=== PATIENT | female | born 1935 | race Caucasian/White ===

== ENCOUNTER 2020-10-25 14:31 | Outpatient (CLI) | payer MEDICARE, BC, SELFPAY ==
[2020-10-25 15:05] VITALS: PULSE 85; O2SAT 92
[2020-10-25 15:06] VITALS: PULSE 84; O2SAT 87
[2020-10-25 15:08] VITALS: PULSE 84; O2SAT 88
[2020-10-25 15:09] VITALS: PULSE 85; O2SAT 90
--- NOTE | 2020-10-25 15:21 | HOMEO2EVAL ---
Evaluation was performed at [facility] Home Oxygen Evaluation RC: Home Oxygen (O2) Evaluation Start: 10/25/20 15:17 Freq: Status: Active Protocol: RPE Activity Type Activity Date Activity User E-Sign Co-Sign Detail Recorded Client Recorded Date Recorded By Document 10/25/20 15:05 KMV [id number] 10/25/20 15:19 KMV Document 10/25/20 15:06 KMV [id number] 10/25/20 15:21 KMV Document 10/25/20 15:08 KMV [email or web address] 10/25/20 15:21 KMV Document 10/25/20 15:09 KMV [email or web address] 10/25/20 15:21 KMV 10/25/20 10/25/20 10/25/20 15:05 15:06 15:08 Home O2 Evaluation Test Phase Resting Exercise Exercise Oxygen Delivery Room Air Room Air Nasal Cannula Oxygen Flow Rate (L/min) 1 Pulse Oximetry (90-100 %) 92 87 L 88 L Pulse Rate (60-100 beats/min) 85 84 84 Activity Tolerance Fair Fair Ambulation Distance (feet) Home Oxygen Evaluation Comments Treatment Charges O2 Evaluation - Outpatient 10/25/20 15:09 Home O2 Evaluation Test Phase Exercise Oxygen Delivery Nasal Cannula Oxygen Flow Rate (L/min) 1 Pulse Oximetry (90-100 %) 90 Pulse Rate (60-100 beats/min) 85 Activity Tolerance Fair Ambulation Distance (feet) 50 Home Oxygen Evaluation Comments PT. REQUIRES 2LPM OXYGEN WITH ACTIVITY. Treatment Charges
--- NOTE | 2020-10-25 15:22 | PCRCNOTE ---
PT. REFUSED PFT AND ABG. STATES SHE ONLY IS HERE TO QUALIFY FOR HOME OXYGEN. CALLED [employer] (DR. COLEMAN) AND OBTAINED A VERBAL ORDER FOR A HOME O2 EVALUATION.
== END 2020-10-25 14:32 | disposition home or self-care (01) ==
LOC: ANHPFT 14:34
PROVIDERS: PCP Internal Medicine; Visit Provider Internal Medicine
DX: J44.9 Chronic obstructive pulmonary disease, unspecified (principal)
CPT/HCPCS: 94618

== ENCOUNTER 2020-11-09 07:48 | Outpatient (CLI) | payer MEDICARE, BC, SELFPAY ==
[2020-11-09 08:32] LABS: Alveolar/Arterial O2 Gradient 31.9 mmHg; Base Excess ABG 1.7 mEq/l (+/-2.0); Carboxyhemoglobin 0.7 % THb (0-2.0); Fractional Inspired Oxygen 21 %; HCO3 ABG 27.1 mEq/l (22.0-26.0); Methemoglobin ABG 0.5 %THb (0-1.5); Oxygen Content ABG 22.7 %vol (16.0-22.0); Oxygen Saturation ABG 92.4 % (95.0-100.0); Oxyhemoglobin 91.9 % THb (90.0-100.0); PCO2 ABG 44.8 mmHg (35.0-45.0); PO2 ABG 64.2 mmHg (80.0-100.0); PO2 FiO2 Ratio Arterial Blood 3.06 %; Reduced Hemoglobin 6.9 %THb (0-5.0); Site Drawn RIGHT RADIAL; Total Hemoglobin 17.6 g/dL (12.0-18.0); pH ABG 7.399 (7.350-7.450)
[2020-11-09 08:33] LABS: Device ROOM AIR; Modified Allen's Test Pass
== END 2020-11-09 07:49 | disposition home or self-care (01) ==
LOC: ANHPFT 07:51
PROVIDERS: PCP Internal Medicine; Visit Provider Internal Medicine
DX: J44.9 Chronic obstructive pulmonary disease, unspecified (principal)
CPT/HCPCS: 36600; 82375; 82805; 83050

== ENCOUNTER 2022-03-10 16:14 | Inpatient (IN) | payer MEDICARE, BC, SELFPAY ==
[2022-03-10] VITALS (30 sets, daily range): BP systolic 110–191; BP diastolic 58–103; PULSE 82–151; RESP 17–37; TEMP 36.2–36.6; O2SAT 94–98; BMI 24.5
--- NOTE | ~2022-03-10 | XR_ITS ---
XR chest 1V portable DATE: 03/15/2022 08:24 INDICATION: Pneumonia, cough, weakness TECHNIQUE: Portable upright AP chest on 03/15/2022 0818 hours COMPARISON: 03/13/2022 CT pulmonary scan 03/13/2022 portable AP chest FINDINGS: Heart size appears normal. Is aortic calcification. There are patchy infiltrates in the mid and lower lung zones, right greater than left, consistent wit h bilateral pneumonia. Aortic arch calcification. No pleural effusion or pulmonary vascular congestion or pneumothorax. Osteopenia. IMPRESSION: Persistent patchy mid and lower lung infiltrates, right greater than left, relatively sta ble since 03/13/2022 Emphysema Aortic atherosclerosis Osteopenia Reviewed, dictated and finalized at location B. SFER IRON OPERATOR IMPRESSION: Persistent patchy mid and lower lung infiltrates, right greater joselito n left, relatively stable since 03/13/2022 Emphysema Aortic atherosclerosis Osteopenia
--- NOTE | ~2022-03-10 | CT_ITS ---
EXAMINATION: CTA chest PE protocol DATE: 03/13/2022 18:45 INDICATION: R/O PE TECHNIQUE: Computed tomography angiography (CTA) of the chest was performed with 100 mL Omnipaque-350 intravenous contrast timed to evaluate the pulmonary arteries. Coronal maximum intensity projection 3D-reconstructions were created by the technologist. The dose-length product (DLP) was 413.05 mGy-cm. Automated exposure control and iterative reconstruction technique were employed. COMPARISON: None. FINDINGS: Lung parenchyma and airways: Emphysematous change. Mid and lower peripheral reticular and tree-in-bud opacities. Subsegmental bibasilar consolidation. Calcified left lower lobe hamartoma. Pleura: Unremarkable. Thoracic inlet, axillae and chest wall: Mild ectasia and arch calcification. Thoracic aorta: Normal. Mediastinum: Dilated central pulmonary arteries as can be seen with pulmonary arterial hypertension. Heart and pericardium: Mild cardiomegaly. Mild aortic valve calcification Coronary artery calcifications: Mild. Upper abdomen: No significant finding. Bones: No acute osseous finding. Pulmonary arteries: Study quality: Adequate. No pulmonary emboli detected. IMPRESSION: No CT evidence of acute pulmonary embolus. Bibasilar atelectasis or consolidation, overlying chronic emphysematous, senescent, and interstitial changes, likely with a component of respiratory bronchioli tis. Reviewed, dictated and finalized at location K. ER PRINTED CIRCUIT BOARDS IMPRESSION: No CT evidence of acute pulmonary embolus. Bibasilar atelectasis or consolidati on, overlying chronic emphysematous, senescent, and interstitial changes, likel y with a component of respiratory bronchiolitis.
--- NOTE | ~2022-03-10 | XR_ITS ---
EXAMINATION: XR chest 1V portable DATE: 03/25/2022 06:46 INDICATION: COVID-19 pneumonia. TECHNIQUE: A single frontal view of the chest was obtained. COMPARISON: Chest single view 03/23/2022, chest CT 03/20/2022 FINDINGS: The lungs are hyperexpanded with lucencies, consistent with emphysema. There are airspace o pacities in the mid and lower lung zones, left worse than right. A calcified left lung nodule is cons istent with old granulomatous disease. A skin fold overlies left hemithorax. There is a small left pl eural effusion. No pneumothorax. Cardiomegaly is noted. IMPRESSION: 1. Stable airspace opacities in the mid and lower lung zones, consistent with pneumonia. 2. Stable small left pleural effusion. 3. Emphysema. 4. Cardiomegaly. Reviewed, dictated and finalized at location A. ATIENT DIETITIAN IMPRESSION: 1. Stable airspace opacities in the mid and lower lung zones, consistent with p neumonia. 2. Stable small left pleural effusion. 3. Emphysema. 4. Cardiomegaly.
--- NOTE | ~2022-03-10 | XR_ITS ---
EXAMINATION: XR chest 1V portable DATE: 03/13/2022 06:20 INDICATION: Shortness of breath TECHNIQUE: frontal view of the chest was obtained. COMPARISON: Chest radiograph dated 03/12/2022 FINDINGS: Persistent pulmonary vascular congestion with slight improvement in the increased interstitial patter n in the mid and lower lung zones consistent with improving mild pulmonary edema. Slight improvement in more patchy airspace opacities in the right lower lung zone which could represent atelectasis and/ or pneumonia. Calcified nodule at the left lung base consistent with old granulomatous disease. No pn eumothorax or pleural effusion. The cardiomediastinal silhouette is within normal limits for AP techn ique. Cholecystectomy clips in right upper quadrant. IMPRESSION: 1. Pulmonary vascular congestion with slight improvement in mild pulmonary edema. 2. Decrease in the patchy airspace opacities at the right lower lung zone which could represent impro ving atelectasis, pneumonia or more focal pulmonary edema. Reviewed, dictated and finalized at location A. RVOIR CARETAKER IMPRESSION: 1. Pulmonary vascular congestion with slight improvement in mild pulmonary alvaro a. 2. Decrease in the patchy airspace opacities at the right lower lung zone which could represent improving atelectasis, pneumonia or more focal pulmonary edema .
--- NOTE | ~2022-03-10 | XR_ITS ---
EXAMINATION: XR chest 1V portable Exam Date/Time: 03/10/2022 17:00 STAFF FORESTER HISTORY: SOB, WHEEZING. HX COPD Comparison: 08/22/2010. RESULT: Lines, tubes, and devices: None. Lungs and pleura: Cephalization, increased bronchovascular interstitial opacities and cuffing, perip heral reticular opacities. Mild bilateral angle blunting. Multiple calcified pulmonary nodules. Cardiomediastinal silhouette: Stable. Other: No acute osseous or upper abdominal finding. IMPRESSION: Pulmonary opacities may reflect moderate interstitial edema with small bilateral effusions. Infection /bronchiolitis not excluded. Reviewed, dictated and finalized at location K. F FORESTER IMPRESSION: Pulmonary opacities may reflect moderate interstitial edema with small bilatera l effusions. Infection/bronchiolitis not excluded.
--- NOTE | ~2022-03-10 | XR_ITS ---
EXAMINATION: XR chest 1V portable DATE: 03/27/2022 06:00 INDICATION: Pneumonia TECHNIQUE: frontal view of the chest was obtained. COMPARISON: Chest radiograph dated 03/25/[address] chest dated 03/20/2022 FINDINGS: Increased lucency in the bilateral upper lung zones consistent with emphysema better appreciated on p rior CT Mild opacities in the bilateral lower lung zones with interval improvement on the left. Small left pleural effusion. Calcified nodule at the medial left lung base consistent with old granulomato us disease. No pneumothorax. Cardiomediastinal silhouette is normal. IMPRESSION: 1. Emphysema with mild opacities at the bilateral lung bases, improved on the left, which could repre sent mild pulmonary edema, atelectasis, pneumonia or some combination thereof. 2. Small left pleural effusion. Reviewed, dictated and finalized at location A. FINDER FORMING DEPARTMENT IMPRESSION: 1. Emphysema with mild opacities at the bilateral lung bases, improved on the l eft, which could represent mild pulmonary edema, atelectasis, pneumonia or some combination thereof. 2. Small left pleural effusion.
--- NOTE | ~2022-03-10 | XR_ITS ---
EXAMINATION: XR chest 1V portable INDICATION: COVID pneumonia TECHNIQUE: Portable AP chest at 0639 hours COMPARISON: 03/18/2022, 03/20/2022 FINDINGS: There is a small left pleural effusion. There are worsening airspace opacities of the left lung base. Right basilar airspace opacities are stable. No pneumothorax is identified. The heart size is normal. Again noted is a nodule of the left lower lobe, suspicious for primary bronchogenic carci noma by CT. IMPRESSION: 1. Worsening airspace opacities of the left lung base and stable right basilar airspace opacities, co nsistent with atelectasis versus pneumonia. 2. Small left pleural effusion. Reviewed, dictated and finalized at location A. MACY TECHNICIAN PER DIEM IMPRESSION: 1. Worsening airspace opacities of the left lung base and stable right basilar airspace opacities, consistent with atelectasis versus pneumonia. 2. Small left pleural effusion.
--- NOTE | ~2022-03-10 | XR_ITS ---
EXAMINATION: XR chest 1V portable INDICATION: Shortness of breath TECHNIQUE: Portable AP chest at 0544 hours COMPARISON: 03/10/2022 FINDINGS: There are worsening airspace opacities of the right lung base. No pleural effusion or pneum othorax. The cardiomediastinal silhouette is normal. IMPRESSION: 1. Worsening right basilar airspace opacity, consistent with atelectasis versus pneumonia. Reviewed, dictated and finalized at location A. INTEGRATION DEVELOPER
--- NOTE | ~2022-03-10 | XR_ITS ---
EXAMINATION: XR chest 1V portable DATE: 03/18/2022 09:30 INDICATION: Shortness of breath. TECHNIQUE: A single frontal view of the chest was obtained. COMPARISON: Chest single view 03/15/2022, chest CT 03/13/2022 FINDINGS: There are lucencies in the lungs, consistent with emphysema. A calcified left lung nodule a nd calcified mediastinal lymph nodes are consistent with old granulomatous disease. There are airspac e opacities in right mid and lower lung zones and left lower lung zone. No pleural effusion or pneumo thorax. The heart size is normal. IMPRESSION: 1. Stable airspace opacities in right mid and lower lung zones and left lower lung zone, consistent w ith pneumonia. 2. Nodule in left lung lower lobe suspicious for primary bronchogenic carcinoma. Noncontrast low-dose chest CT is recommended in 3 months. I called this result to Dr. Angelo. 3. Emphysema. Reviewed, dictated and finalized at location A. NG DIRECTOR IMPRESSION: 1. Stable airspace opacities in right mid and lower lung zones and left lower l raman zone, consistent with pneumonia. 2. Nodule in left lung lower lobe suspicious for primary bronchogenic carcinoma . Noncontrast low-dose chest CT is recommended in 3 months. I called this resul t to Dr. Angelo. 3. Emphysema.
--- NOTE | ~2022-03-10 | CT_ITS ---
EXAMINATION:CT diagnostic chest wo con DATE: 03/20/2022 08:49 INDICATION: Pneumonia. TECHNIQUE: Computed tomography (CT) of the chest was performed without intravenous contrast. Automate d exposure control and iterative reconstruction technique were employed. The dose-length product (DLP ) was 176.40 mGy-cm. COMPARISON: Chest CT 03/13/2022 FINDINGS: There is severe emphysema. There is peripheral scarring in the upper lobes. There are patch y airspace opacities in the lower lobes and posterior segment right upper lobe, consistent with pneum onia. There is atelectasis and scarring in right middle lobe and lingula. There is mild bronchiectasi s in right middle lobe and lingula. A calcified left lung nodule is consistent with old granulomatous disease. There is a 14 mm nodule in left lower lobe. There are small pleural effusions. Cardiomegaly is noted. There are coronary artery calcifications. No pericardial effusion. There are changes of ch olecystectomy. There is a 2.3 cm cyst in right kidney. There is a 10 x 13 mm high right paratracheal lymph node. There is mild thoracic spondylosis and severe lumbar spondylosis. IMPRESSION: 1. Pneumonia involving the lower lobes and posterior segment right upper lobe with interval worsening in right upper lobe. 2. 14 mm left lower lobe pulmonary nodule suspicious for primary bronchogenic carcinoma. Noncontrast low-dose chest CT is recommended in 3 months. 3. Small pleural effusions. 4. Severe emphysema and chronic lung disease. 5. Mildly enlarged mediastinal lymph node, likely reactive. Reviewed, dictated and finalized at location A. TOR IMPRESSION: 1. Pneumonia involving the lower lobes and posterior segment right upper lobe w ith interval worsening in right upper lobe. 2. 14 mm left lower lobe pulmonary nodule suspicious for primary bronchogenic c arcinoma. Noncontrast low-dose chest CT is recommended in 3 months. 3. Small pleural effusions. 4. Severe emphysema and chronic lung disease. 5. Mildly enlarged mediastinal lymph node, likely reactive.
--- NOTE | 2022-03-10 16:23 | ECG_ITS ---
Measurements Intervals [place] Rate: 122 P: MI: 0 QRS: 195 QRSD: 103 T: -89 QT: 339 QTc: 485 Interpretive Statements ATRIAL FIBRILLATION WITH RAPID VENTRICULAR RESPONSE WITH ABERRANT CONDUCTION OR VENTRICULAR PREMATURE COMPLEXES INCOMPLETE RIGHT BUNDLE BRANCH BLOCK [90+ ms QRS DURATION, TERMINAL R IN V1/V2, 40+ ms S IN I/aVL/V4/V5/V6] POSSIBLE ANTERIOR MYOCARDIAL INFARCTION , OF INDETERMINATE AGE [30 ms Q WAVE IN V3/V4, OR R < 0.2 mV IN V4] NO PREVIOUS ECG AVAILABLE FOR COMPARISON Electronically Signed On 03-11-2022 11:13:20 BONDING MACHINE SETTER by Linda Escobar M.D.
[2022-03-10 16:41] LABS: Alveolar/Arterial O2 Gradient 185.4 mmHg; Base Excess ABG -3.9 mEq/l (+/-2.0); Fractional Inspired Oxygen 44 %; HCO3 ABG 22.8 mEq/l (22.0-26.0); Oxygen Content ABG 20.5 %vol (16.0-22.0); Oxygen Saturation ABG 93.5 % (95.0-100.0); Oxyhemoglobin 92.2 % THb (90.0-100.0); PCO2 ABG 47.3 mmHg (35.0-45.0); PO2 ABG 74.4 mmHg (80.0-100.0); PO2 FiO2 Ratio Arterial Blood 1.69 %; Total Hemoglobin 15.8 g/dL (12.0-18.0); pH ABG 7.301 (7.350-7.450)
[2022-03-10 16:41] LABS: Hemoglobin 15.5 g/dL (12.0-15.0); Mean Corpuscular HGB Conc 32.3 g/dl (32-36); Mean Corpuscular Hemoglobin 30.8 pg (26-34); Mean Corpuscular Volume 95.4 fl (80-100); Mean Platelet Volume 10.1 fl (7.4-10.4); Platelet Count Result 372 k/mm3 (150-375); Red Blood Count 5.03 M/mm3 (4.2-5.4); Red Cell Distribution Width 13.7 % (11.5-14.5); White Blood Count 12.6 K/mm3 (4.5-10.0)
[2022-03-10 16:43] LABS: Device NASAL CANNULA; Modified Allen's Test Pass; Site Drawn RIGHT RADIAL
--- NOTE | 2022-03-10 16:48 | ED.SOB ---
HPI - SOB/Dyspnea General Chief Complaint: Shortness of Breath/Dyspnea Stated Complaint: dyspnea Time Seen by Provider: 03/10/22 16:48 Source: patient, family, EMS and RN notes reviewed Mode of arrival: EMS History of Present Illness HPI Narrative: 86 years old white female presents with increased shortness of breath, headache, nasal congestion, increased sinus drainage with severe shortness of breath over the last 5 days. Her oxygenation at home was in the 80s. Patient does not take oxygen at home. She denies sick contact. Tested negative for COVID at home. She does not smoke. Related Data Home Medications Medication Instructions Recorded Confirmed alprazolam 1 mg tablet (Xanax) 1 mg PO DAILY 08/24/21 11/16/21 multivit with 1 tablet PO DAILY 08/24/21 11/16/21 tmjollrb-tntd-TG-lutein 8 mg iron-400 mcg-300 mcg tablet (Centrum Silver Women) lisinopril 5 mg tablet 5 mg PO DAILY 03/10/22 03/10/22 metformin 500 mg tablet 500 mg PO BID 03/10/22 03/10/22 Allergies Allergy/AdvReac Type Severity Reaction Status Date / Time aspirin Allergy Intermediate Out of Verified 03/10/22 18:40 body experience vitamin E (d-alpha Allergy Intermediate Can't walk Verified 03/10/22 18:40 tocopherol) Penicillins Allergy Mild Hives Verified 03/10/22 18:40 Review of Systems Review of Systems: All systems reviewed & are unremarkable except as noted in HPI and below PMFSH Past Medical History Medical History Benign essential HTN Breast cancer in female COPD (chronic obstructive pulmonary disease) Diabetes mellitus FIFI (generalized anxiety disorder) Hyperlipidemia Tobacco abuse Surgical History Surgical History History of lumpectomy of left breast History of lumpectomy of right breast Hx laparoscopic cholecystectomy Social History Social History Social History: Smoking packs per day: 1 Smoking cigarettes per day: 20.0 Years smoked: 60 Smoking pack-years: 60.00 Smoking status: Former smoker Tobacco type: cigarettes Second hand tobacco smoke exposure: No Smoking end date: 04/07/14 Alcohol intake: never Substance use: never Substance use type: does not use Gender identity (if verbalized by the patient): Female Sexual Orientation (if Verbalized by the Patient): Straight or Heterosexual Exam Narrative: General appearance: Well-developed, well-nourished, labored breathing, on 6 L by nasal cannula with saturation of 94% Skin: Normal color Head: Normocephalic, nontraumatic Eyes: Clear conjunctiva ENT: Constant coughing producing clear sputum with nasal discharge Neck: Supple, nontender Chest and respiratory: Severe diminishment of air entry bilaterally Heart: Tachycardia Abdomen: Soft, nontender, no organomegaly, quiet bowel sounds Vascular: Normal peripheral pulses, normal capillary refill. Musculoskeletal: Normal range of motion, nontender back Neurologic: Alert and oriented ?3, DIGITAL ASSOCIATE is normal as tested, no gross motor deficit Course Vital Signs Vital signs: Vital Signs Temperature 36.6 C 03/10/22 16:16 Pulse Rate 127 H 03/10/22 16:16 Respiratory Rate 31 H 03/10/22 16:16 Blood Pressure 185/103 H 03/10/22 16:16 Pulse Oximetry 97 03/10/22 16:16 Oxygen Delivery Nasal Cannula 03/10/22 16:16 Oxygen Flow Rate 6 03/10/22 16:16 Temperature 36.6 C 03/10/22 16:16 Pulse Rate 144 H 03/10/22 18:10 Respiratory Rate 26 H 03/10/22 18:10 Blood Pressure 185/103 H 03/10/22 16:16 Pulse Oximetry 98 03/10/22 16:24 O
[2022-03-10 16:54] LABS: Atypical Lymphocytes Present; Band Neutrophils Percent 19 % (0-6); Lymphocytes Absolute Manual 1.26 K/mm3 (1.1-4.5); Lymphocytes Percent Manual 10 % (18-44); Metamyelocytes Percent 4 %; Monocytes Absolute Manual 2.39 K/mm3 (0.1-0.90); Monocytes Percent Manual 19 % (3-9); Neutrophils Absolute Manual 8.44 K/mm3 (1.7-7.2); Neutrophils Percent Manual 48 % (46-73); Platelet Estimate Adequate (Adequate); Schistocytes None Seen (NORMAL); Total Cells Counted 100
[2022-03-10 16:56] LABS: Alanine Aminotransferase 35 U/L (6-35); Albumin Level 4.1 g/dL (3.5-5.1); Alkaline Phosphatase 153 U/L (38-126); Anion Gap 10 mmol/L (8-16); Aspartate Amino Transferase 43 U/L (14-36); Bilirubin,Total 1.2 mg/dL (0.2-1.3); Blood Urea Nitrogen 18 mg/dL (7-17); Calcium 9.6 mg/dL (8.4-10.2); Carbon Dioxide 26 mmol/L (22-30); Chloride 95 mmol/L (98-107); Estimated CRCL calculation 35 ml/min; Estimated Glomerular Filt Rate 60; Glucose 206 mg/dL (65-110); Lactic Acid Reflex 2.3 mmol/L (0.7-2.0); Potassium 4.2 mmol/L (3.4-5.0); Sodium 131 mmol/L (137-145)
[2022-03-10] MEDS: IPRATROPIUM BR 0.02% INH SOLN 0.5 MG/2.5 ML VIAL INHALATION ×2 (17:20→21:08)
[2022-03-10 17:23] LABS: Influenza A QL RT-PCR Negative (Negative); Influenza B QL RT-PCR Negative (Negative); RSV RNA, RT-PCR Negative (Negative); SARS-CoV-2 RNA PCR Negative
[2022-03-10] MEDS: dilTIAZem HCl INJ 25 MG/5 ML VIAL 10 MG IV PUSH ×2 (18:22→19:10)
[2022-03-10] MEDS: dilTIAZem 100 MG/100 ML 100 MG/100 ML BAG IV CONT (18:23)
--- NOTE | 2022-03-10 18:45 | PC.NURSE ---
diltiazem titrated to 10mg/hr
--- NOTE | 2022-03-10 18:59 | ECG_ITS ---
Measurements Intervals [place] Rate: 155 P: [place]: 0 QRS: 111 QRSD: 105 T: -47 QT: 258 QTc: 414 Interpretive Statements ATRIAL FIBRILLATION WITH RAPID VENTRICULAR RESPONSE WITH PVCS POSSIBLE RIGHT VENTRICULAR HYPERTROPHY [SOME/ALL OF: PROMINENT R IN V1, LATE TRANSITION, RAD, [place], SSS] POSSIBLE ANTERIOR MYOCARDIAL INFARCTION , OF INDETERMINATE AGE [30 ms Q WAVE IN V3/V4, OR R < 0.2 mV IN V4] COMPARED TO ECG 03/10/2022 16:19:51 NO SIGNIFICANT CHANGES Electronically Signed On 03-12-2022 15:18:04 HANDSTITCHING MACHINE COLLAR FELLER by Linda Escobar M.D.
[2022-03-10] MEDS: ENOXAPARIN 80 MG/0.8 ML SYRINGE 70 MG SUB-Q (19:10)
--- NOTE | 2022-03-10 19:21 | PC.NURSE ---
1904 Assumed pt care from Kris Whitt RN
[2022-03-10 19:38] LABS: Reflex Lactic Acid Yes or No Add Lactic
--- NOTE | 2022-03-10 20:00 | PC.NURSE ---
This patient, Amira Myers, was admitted to IMU Room 202-01. Patient/family oriented to hospital policies and general routines including ID bracelet, bed and alarms, visiting hours, pain management, procedures, bathroom and other care routines, personal items, smoking policy, room service/diet, and visiting hours. Information on how to activate the Rapid Response Team has been discussed. Patient/Family are encouraged to report perceived risks to care and to ask questions if they do not understand what they are told or what they should do.
--- NOTE | 2022-03-10 20:13 | PM.IMHP ---
H&P: HPI History of Present Illness Date/Time: 03/10/22 20:13 Chief Complaint: Shortness of breath Narrative: This is an 86-year-old female patient who has been coughing for the last 5 days. She has a history of COPD. The patient tested negative for COVID at home. Her oxygenation at home was in the 80% she has been complaining of a cough nasal congestion headache increased sinus drainage for at least 5 days. Her white count 12.6. H&H is 15.5 and 48.0. PH 7.301 CO2 was 47.3 PO2 74.4. When I saw the patient she was on Airvo. The patient tested negative for influenza A/B RSV and COVID. Chest x-ray was read as pulmonary opacities may reflect moderate interstitial edema with small bilateral effusions infection/bronchiolitis not excluded. She does have a history of having AFib and now she is in AFib with RVR she was started on a Cardizem drip. Respiratory treatment and Rocephin and azithromycin. The patient's heart rate remains in the 130. The patient was refusing the BiPAP so that is why she was placed on the Airvo. The patient was given Ativan so that she could tolerate the BiPAP. Patient's heart rate continued to be in the 130s with the increase in the Cardizem drip and she was given digoxin which brought her heart rate down to the 120s. The patient is being admitted to inpatient status on the date of service of Review of Systems Review of Systems: See HPI All systems reviewed & are unremarkable except as noted in HPI and below Constitutional: Constitutional: Reports as per HPI and Reports no additional constitutional complaints Eyes: Eyes: Reports as per HPI and Reports no additional eye complaints ENT: Reports system reviewed and no additional complaints, except as documented and Reports Normal hearing present Cardiovascular: Cardiovascular: Reports no additional cardiovascular complaints Respiratory: Respiratory: Reports no additional respiratory complaints and Reports no additional respiratory complaints Gastrointestinal: Gastrointestinal: Reports as per HPI and Reports no additional gastrointestinal complaints Musculoskeletal: Musculoskeletal: Reports no additional musculoskeletal complaints Integumentary/Breasts: Skin/Breast: Reports system reviewed and no additional complaints, except as docu and Reports as per HPI Neurologic: Reports system reviewed and no additional complaints, except as documented, Reports as per HPI and Reports Normal hearing present Psychiatric: Psychiatric: Reports no additional psychiatric complaints and Reports as per HPI Endocrine: Endocrine: Reports no additional endocrine complaints Hematologic/Lymphatic: Hematologic/Lymphatic: Reports no additional hematologic/lymphatic complaints Allergic/Immunologic: Allergic/Immunologic: Reports no additional allergic/immunologic complaints [facility] Past Medical History Medical History Benign essential HTN Breast cancer in female COPD (chronic obstructive pulmonary disease) Diabetes mellitus FIFI (generalized anxiety disorder) Hyperlipidemia Tobacco abuse Surgical History Surgical History History of lumpectomy of left breast History of lumpectomy of right breast Hx laparoscopic cholecystectomy Family History Family History (Updated 03/10/22 @ 22:39 by Miri Sandoval NP) Unknown Unknown family medical history Social History Social History (Updated 03/10/22 @ 22:46 by Miri Sandoval NP) Social History: to jf. She has 3 children. She is retired. He is a former smoker Code status full code Smoking packs per day: 1 Smoking cigarettes per day: 20.0 Years smoked: 60 Smoking pack-years: 60.00 Smoking status: Former smoker Tobacco type: cigarettes Second hand tobacco smoke exposure: No Smoking end date: 04/07/14 Alcohol intake: never Substance use: never Substance use type:
[2022-03-10] MEDS: LORazepam INJ (*CRX) 2 MG/ML VIAL 0.5 MG IV PUSH (20:45)
[2022-03-10] MEDS: LEVALBUTEROL NEB 1.25 MG/3 ML 0.63 MG INHALATION (21:08)
[2022-03-10 21:47] LABS: Lactic Acid 2.8 mmol/L (0.7-2.0)
[2022-03-10] MEDS: DIGOXIN INJ 250 MCG/ML 2 ML AMP (*BKC) 125 MCG IV PUSH (21:50)
[2022-03-10] MEDS: methylPREDNISolone SOD SUCC 40 MG VIAL IV PUSH (21:53)
[2022-03-10] MEDS: METOPROLOL TARTRATE INJ 5 MG/5 ML VIAL IV PUSH (23:07)
[2022-03-10 23:41] LABS: Alveolar/Arterial O2 Gradient 212.6 mmHg; Base Excess ABG -1.9 mEq/l (+/-2.0); Carboxyhemoglobin 0.5 % THb (0-2.0); Fractional Inspired Oxygen 50 %; HCO3 ABG 27.3 mEq/l (22.0-26.0); Methemoglobin ABG 0.4 %THb (0-1.5); Oxygen Content ABG 20.1 %vol (16.0-22.0); Oxygen Saturation ABG 90.4 % (95.0-100.0); Oxyhemoglobin 90.9 % THb (90.0-100.0); PO2 ABG 69.7 mmHg (80.0-100.0); PO2 FiO2 Ratio Arterial Blood 1.39 %; Reduced Hemoglobin 8.2 %THb (0-5.0); Total Hemoglobin 15.7 g/dL (12.0-18.0)
[2022-03-10 23:43] LABS: pH ABG 7.235 (7.350-7.450)
[2022-03-10 23:44] LABS: Device NON-INVASIVE VENT; Modified Allen's Test Pass; Site Drawn RIGHT RADIAL
[2022-03-10 23:45] LABS: Non-Invasive Expiratory Pressure 7 CMH2O; Non-Invasive Inspiratory Pressure 12 CMH2O; Non-Invasive Vent Rate 16 /MIN
[2022-03-11] VITALS (25 sets, daily range): BP systolic 105–148; BP diastolic 51–76; PULSE 53–117; RESP 18–29; TEMP 36.2–36.8; O2SAT 91–100
[2022-03-11] MEDS: dilTIAZem 100 MG/100 ML 100 MG/100 ML BAG 15 MG IV CONT (00:53)
[2022-03-11] MEDS: IPRATROPIUM BR 0.02% INH SOLN 0.5 MG/2.5 ML VIAL INHALATION ×2 (01:08→13:50)
[2022-03-11] MEDS: LEVALBUTEROL NEB 1.25 MG/3 ML 0.63 MG INHALATION ×2 (01:08→08:21)
[2022-03-11 02:16] LABS: Alveolar/Arterial O2 Gradient 198.2 mmHg; Base Excess ABG -3.7 mEq/l (+/-2.0); Carboxyhemoglobin 0.8 % THb (0-2.0); Fractional Inspired Oxygen 50 %; HCO3 ABG 23.8 mEq/l (22.0-26.0); Methemoglobin ABG 0.3 %THb (0-1.5); Oxygen Content ABG 20.3 %vol (16.0-22.0); Oxygen Saturation ABG 96.6 % (95.0-100.0); Oxyhemoglobin 95.4 % THb (90.0-100.0); PO2 ABG 98.7 mmHg (80.0-100.0); PO2 FiO2 Ratio Arterial Blood 1.97 %; Reduced Hemoglobin 3.5 %THb (0-5.0); Total Hemoglobin 15.1 g/dL (12.0-18.0)
[2022-03-11 02:17] LABS: Device NON-INVASIVE VENT; Modified Allen's Test Pass; Site Drawn LEFT RADIAL; pH ABG 7.271 (7.350-7.450)
[2022-03-11 02:18] LABS: Non-Invasive Expiratory Pressure 20 CMH2O; Non-Invasive Inspiratory Pressure 7 CMH2O; Non-Invasive Vent Rate 16 /MIN
[2022-03-11 02:31] LABS: Troponin I 0.186 ng/mL (0.000-0.034)
[2022-03-11] MEDS: methylPREDNISolone SOD SUCC 40 MG VIAL IV PUSH ×3 (05:01→20:09)
[2022-03-11 05:27] LABS: Alveolar/Arterial O2 Gradient 190.8 mmHg; Carboxyhemoglobin 0.3 % THb (0-2.0); Fractional Inspired Oxygen 50 %; HCO3 ABG 26.2 mEq/l (22.0-26.0); Methemoglobin ABG 0.3 %THb (0-1.5); Oxygen Content ABG 22.5 %vol (16.0-22.0); Oxygen Saturation ABG 97.4 % (95.0-100.0); Oxyhemoglobin 96.6 % THb (90.0-100.0); PCO2 ABG 52.8 mmHg (35.0-45.0); PO2 ABG 106.3 mmHg (80.0-100.0); PO2 FiO2 Ratio Arterial Blood 2.13 %; Reduced Hemoglobin 2.8 %THb (0-5.0); Total Hemoglobin 16.5 g/dL (12.0-18.0); pH ABG 7.313 (7.350-7.450)
[2022-03-11 05:28] LABS: Device NON-INVASIVE VENT; Modified Allen's Test Pass; Non-Invasive Expiratory Pressure 7 CMH2O; Non-Invasive Inspiratory Pressure 16 CMH2O; Non-Invasive Vent Rate 20 /MIN; Site Drawn RIGHT RADIAL
[2022-03-11 05:47] LABS: Lactic Acid Reflex 3.4 mmol/L (0.7-2.0)
[2022-03-11 05:49] LABS: Magnesium 2.3 mg/dL (1.6-2.3)
[2022-03-11 08:10] LABS: Glucose Point of Care 323 mg/dl (65-105)
[2022-03-11 08:32] LABS: Reflex Lactic Acid Yes or No Add Lactic
--- NOTE | 2022-03-11 08:56 | PM.IMPN ---
Progress Note: A&P Assessment and Plan (1) Pneumonia: Code(s): J18.9 - Pneumonia, unspecified organism Status: Acute Assessment and Plan: -continue with azithromycin and Rocephin per community-acquired pneumonia antibiotic stewardship. -tailor antibiotics to results of blood and sputum cultures -continue with nebulizer treatment (2) Atrial fibrillation with rapid ventricular response: Code(s): I48.91 - Unspecified atrial fibrillation Status: Acute Assessment and Plan: Started on Cardizem drip. Also given digoxin low pressure AFib is rate controlled now Will add metoprolol On Lovenox subQ History of AFib but not on anticoagulation chronically.- TSH normal Cardiology consult (3) COPD (chronic obstructive pulmonary disease): Code(s): J44.9 - Chronic obstructive pulmonary disease, unspecified Status: Acute Assessment and Plan: -the patient was started on Solu-Medrol and tolerated it well. -continue with nebulizer treatments. -continue with home inhalers (4) Hyperlipidemia: Code(s): E78.5 - Hyperlipidemia, unspecified Status: Acute Assessment and Plan: -continue with atorvastatin (5) FIFI (generalized anxiety disorder): Code(s): F41.1 - Generalized anxiety disorder Status: Acute Assessment and Plan: -continue with Ativan (6) Benign essential HTN: Code(s): I10 - Essential (primary) hypertension Status: Acute Assessment and Plan: -continue with lisinopril if blood pressure allows in the patient is off the Cardizem drip. (7) Diabetes mellitus: Code(s): E11.9 - Type 2 diabetes mellitus without complications Status: Acute Assessment and Plan: -hold metformin for now. -sliding scale insulin with Accu-Cheks AC and HS and hypoglycemic protocol. -check A1c Hyperglycemia likely due to steroid will increased moderate sliding scale Plan Acute hypoxic hypercapnic respiratory failure requiring BiPAP. Will check BNP Elevated troponin with flat trajectory. Lactic acidosis likely due to underlying pneumonia and sepsis Mild hyponatremia Subjective Date/time seen: 03/11/22 08:56 Interval history: This is an 86-year-old female patient who has been coughing for the last 5 days.? She has a history of COPD.? The patient tested negative for COVID at home.? Her oxygenation at home was in the 80% she has been complaining of a cough nasal congestion headache increased sinus drainage for at least 5 days.? Her white count 12.6.? H&H is 15.5 and 48.0.? PH 7.301 CO2 was 47.3 PO2 74.4.? When I saw the patient she was on Airvo.? The patient tested negative for influenza A/B RSV and COVID.? Chest x-ray was read as pulmonary opacities may reflect moderate interstitial edema with small bilateral effusions infection/bronchiolitis not excluded.? She does have a history of having AFib and now she is in AFib with RVR she was started on a Cardizem drip.? Respiratory treatment and Rocephin and azithromycin.? The patient's heart rate remains in the 130.? The patient was refusing the BiPAP so that is why she was placed on the Airvo.? The patient was given Ativan so that she could tolerate the BiPAP.? Patient's heart rate continued to be in the 130s with the increase in the Cardizem drip and she was given digoxin which brought her heart rate down to the 120s.? The patient is being admitted to inpatient status on the date of service of 03/12/22: Presented with cough congestion sinus drainage with worsening shortness of breath and noted hypoxia. Tested negative for influenza A/B RSV and COVID. Chest x-ray with pulmonary opacities which might reflect interstitial edema infection not excluded. Noted to be in AFib with RVR started on Cardizem drip was been on hold now since controlled but remains on atrial fibrillation. She does have history of atrial fibrillation. Hypoxia required Airvo eventually required BiPAP some Ativan R
[2022-03-11 09:10] LABS: Lactic Acid 1.7 mmol/L (0.7-2.0)
[2022-03-11] MEDS: THERAPEUTIC MULTIVITAMINS/MINERALS TAB (*BKC) 1 TABLET PO (09:23)
[2022-03-11] MEDS: ATORVASTATIN 10 MG TABLET PO (09:23)
[2022-03-11] MEDS: INSULIN ASPART (*BKC) 100 UNITS/ML SUB-Q ×3 (09:23→18:57)
[2022-03-11] MEDS: ENOXAPARIN 80 MG/0.8 ML SYRINGE 70 MG SUB-Q ×2 (09:23→20:09)
[2022-03-11] MEDS: METOPROLOL TARTRATE 12.5 MG TABLET PO ×2 (09:24→20:24)
[2022-03-11 09:39] LABS: NT Pro B Type Natriuretic Pept 9630 pg/mL (5-100)
[2022-03-11 10:10] LABS: Hemoglobin A1C 8.2 % (<5.7)
--- NOTE | 2022-03-11 11:39 | PM.CNCAR ---
Assessment and Plan Assessment and plan (1) Atrial fibrillation with rapid ventricular response: Code(s): I48.91 - Unspecified atrial fibrillation Status: Acute Assessment and Plan: New onset AFib with RVR the setting of acute hypoxic respiratory failure and presumed community-acquired pneumonia relatively asymptomatic. Patient currently appears to be atrial flutter with variable AV block heart rate controlled. Diltiazem held secondary to bradycardia earlier this morning so will discontinue at this point. Continue metoprolol anticipate uptitration to at least 25 mg twice daily. Continue telemetry, monitor for AFib recurrence. AFib etiology multifactorial setting of acute hypoxic respiratory failure, pneumonia, underlying COPD, diabetes mellitus. CHADS2 Vasc score 5. Systemic anticoagulation advised. Patient denies history of bleeding complication, falls or head injury. Transition enoxaparin to Eliquis 5 mg twice daily. Conservative rate control strategy safest option with patient this point given a ongoing hypoxic respiratory failure and advanced age. We have no plans for sedation in her cardioversion given associated risks nor is patient interested. She would require HUBERT guidance prior to cardioversion which would increase risk for need for intubation given her current respiratory compromise. Patient is hemodynamically stable at this point. Continue medical therapy as tolerated. Patient verbalized understanding and agreed with plan of care. (2) Elevated troponin: Code(s): R77.8 - Other specified abnormalities of plasma proteins Status: Acute Assessment and Plan: Most likely secondary to type 2 infarction in setting of hypoxic respiratory failure, pneumonia, AFib with RVR less likely acute coronary syndrome. Patient does not report anginal symptoms. Troponin elevation fairly flat thus far. Continue trend. Patient has multiple risk factors and cannot exclude underlying CAD. EKG suggestive possible anteroseptal KS. will repeat. 2D echocardiogram to assess LV size/function, valve pathology, wall motion abnormalities, and pulmonary pressures. Further recommendation to follow after review. Conservative management at this time. Consider aspirin 81 mg daily although increase bleeding risks on concomitant Eliquis. Will trend troponin and review echo initially. (3) Acute respiratory failure with hypoxia: Code(s): J96.01 - Acute respiratory failure with hypoxia Status: Acute Assessment and Plan: Stabilizing although patient still requiring high-flow nasal cannula/Airvo. She refused BiPAP. Management per primary service. Monitor volume status. Hold off on diuretics for now although judicious use may be benefit depending on patient's clinical course and response to therapy. (4) Pneumonia: Code(s): J18.9 - Pneumonia, unspecified organism Status: Acute Assessment and Plan: Continue IV antibiotics, bronchodilator therapy, steroids, O2 supplementation per primary service. (5) Benign essential HTN: Code(s): I10 - Essential (primary) hypertension Status: Acute Assessment and Plan: Hypertensive at presentation improved at this time. Continue monitor closely. Avoid excessive hypotension. (6) COPD (chronic obstructive pulmonary disease): Code(s): J44.9 - Chronic obstructive pulmonary disease, unspecified Status: Acute Assessment and Plan: History of extensive tobacco abuse. Management per primary service. (7) Diabetes mellitus: Code(s): E11.9 - Type 2 diabetes mellitus without complications Status: Acute Assessment and Plan: Management per primary service. Continue monitor closely. History of Present Illness History of Present Illness Consult date/time: Date of service: 03/11/22 11:39 Requesting physician: Miri Sandoval NP Consult reason: atrial fibrillation Reason For Visit: acute hypoxic respir
--- NOTE | 2022-03-11 11:41 | ECHO_ITS ---
Patient Info Name: Amira Myers Age: 86 years : 1935 Gender: Female Ht: 65 in Wt: 147 lbs BSA: 1.76 m2 HR: 86 bpm BP: 116 / 57 mmHg Heart Rhythm: Atrial Fibrillation Technical Quality: Fair Exam Date: 03/11/2022 12:49 PM Exam Location: [facility] Patient Status: Inpatient Admit Date: 03/10/2022 Staff Ordering Physician: Petey Roberts MD Freight Handler: Namrata Sims RDCS Attending Provider: Prosper Larsen MD Referring Physician: Armando BOBO; Exam Type: CA echo doppler color flow Study Info Indications R06.02 - Shortness of breath - Afib with RVR, ELEVATED TROPO Complete two-dimensional, color flow and Doppler transthoracic echocardiogram is performed with contrast to opacify the left ventricle and to improve the deliniation of the left ventricle endocardial borders. Contrast/Agitated Saline Contrast/Ag. Saline: Definity Amount: 3.00 ml Administered By: Namrata Sims RDCS Existing IV Access: Yes IV Access Condition: patent with no signs of infiltration Summary 1. Left ventricular chamber dimension is normal. 2. Left ventricular systolic function is normal, estimated at 55-60%. 3. There is mildly increased left ventricular wall thickness. 4. Left ventricular septal wall motion is abnormal with septal motion related to bundle branch block. 5. Technically difficult study with limited views. Definity contrast enhancement administered. 6. Right ventricular systolic function is reduced. TAPSE 1.5. Prominent moderator band. 7. Mild lipomatous hypertrophy of the interatrial septum. Suggestion of circumscribed 1.5 cm echodensity attached to or within the interatrial septum of uncertain clinical significance. Recommend CT chest or HUBERT if clinically indicated. Left Ventricle Left ventricular chamber dimension is normal. Left ventricular systolic function is normal, estimated at 55-60%. There is mildly increased left ventricular wall thickness. Left ventricular septal wall motion is abnormal with septal motion related to bundle branch block. The left ventricular diastolic function is indeterminate. Technically difficult study with limited views. Definity contrast enhancement administered. Right Ventricle Right ventricular chamber dimension is normal. Right ventricular systolic function is reduced. TAPSE 1.5. Prominent moderator band. Left Atria Left atrial chamber dimension is normal. Right Atria Right atrial chamber dimension is normal. Atrial Septum Mild lipomatous hypertrophy of the interatrial septum. Suggestion of circumscribed 1.5 cm echodensity attached to or within the interatrial septum of uncertain clinical significance. Recommend CT chest or HUBERT if clinically indicated. Aortic Valve The aortic valve is not well visualized. There is no aortic valve stenosis. There is no aortic valve regurgitation. Pulmonic Valve The pulmonic valve is not well visualized. Mitral Valve The mitral valve has normal leaflets. There is trace mitral valve regurgitation. The mitral valve annulus is moderately calcified. Tricuspid Valve The tricuspid valve leaflets are normal. There is trace tricuspid valve regurgitation. Moderate pulmonary hypertension, estimated pulmonary arterial systolic pressure is 45 mmHg. Pericardium/Pleural The pericardium appears epicardial fat pad. Inferior Vena Cava Dilated inferior vena cava with <50% collapse upon inspiration con
--- NOTE | 2022-03-11 11:43 | ECG_ITS ---
Measurements Intervals [place] Rate: 89 P: MN: 0 QRS: 103 QRSD: 114 T: 87 QT: 336 QTc: 409 Interpretive Statements ATRIAL FLUTTER/TACHYCARDIA WITH VARIABLE AV BLOCK RIGHT AXIS DEVIATION MODERATE INTRAVENTRICULAR CONDUCTION DELAY NONSPECIFIC ST & T-WAVE ABNORMALITY ABNORMAL ECG COMPARED TO ECG 03/10/2022 18:59:17 ATRIAL FLUTTER HAS REPLACED ATRIAL FIBRILLATION Electronically Signed On 03-11-2022 14:51:40 [employer] TECHNICIAN by Petey Roberts M.D.
[2022-03-11 12:10] LABS: Glucose Point of Care 330 mg/dl (65-105)
[2022-03-11] MEDS: PERFLUTREN LIPID MICROSPHERES 1.5 ML VIAL DILUTED TO 10 ML TOTAL VOLUME IV PUSH (13:15)
--- NOTE | 2022-03-11 13:57 | IVDEFINITY ---
Prior to administration of IV Definity the patient was educated on the risks and benefits of the imaging enhancing agent including potential adverse side effects. The patient verbalized understanding. Allergies were verified. No exclusion criteria were identified and at least one of the following inclusion criteria were met: 1) physician request, 2) patient technically difficult to image (per the [employer] [employer]ocardi[employer] guidelines of two or more segments not discernable within the apical view), or 3) questionable left ventricular function. ?
[2022-03-11 17:16] LABS: Glucose Point of Care 248 mg/dl (65-105)
[2022-03-11 20:21] LABS: Glucose Point of Care 240 mg/dl (65-105)
--- NOTE | 2022-03-11 20:30 | PC.NURSE ---
2030- Patient is refusing to wear bipap. Patient complaining of shortness of breath. Patient's saturations are 95% on 4L o2. Patient educated on importance of wearing bipap and may need to be intubated if patient is non complaint and respiratory status worsens. Patient is aware and accepts consequences.
[2022-03-12] VITALS (29 sets, daily range): BP systolic 112–133; BP diastolic 55–67; PULSE 69–102; RESP 12–25; TEMP 36.3–36.7; O2SAT 94–100
[2022-03-12] MEDS: methylPREDNISolone SOD SUCC 40 MG VIAL IV PUSH ×3 (04:15→20:22)
--- NOTE | 2022-03-12 04:49 | PCRCNOTE ---
Patient refused both 1999 and 199 updraft treatments. Patient also would not allow RT to apply bipap. ABG scheduled at 0500. Treatments to resume at 0800.
[2022-03-12 05:24] LABS: Alanine Aminotransferase 41 U/L (6-35); Albumin Level 3.4 g/dL (3.5-5.1); Alkaline Phosphatase 143 U/L (38-126); Anion Gap 9 mmol/L (8-16); Aspartate Amino Transferase 50 U/L (14-36); Bilirubin,Total 0.5 mg/dL (0.2-1.3); Blood Urea Nitrogen 57 mg/dL (7-17); Calcium 8.7 mg/dL (8.4-10.2); Carbon Dioxide 26 mmol/L (22-30); Chloride 93 mmol/L (98-107); Estimated CRCL calculation 28 ml/min; Estimated Glomerular Filt Rate 43; Glucose 223 mg/dL (65-110); Potassium 4.9 mmol/L (3.4-5.0); Sodium 128 mmol/L (137-145)
[2022-03-12 05:29] LABS: Hemoglobin 13.5 g/dL (12.0-15.0); Mean Corpuscular HGB Conc 32.1 g/dl (32-36); Mean Corpuscular Hemoglobin 30.3 pg (26-34); Mean Corpuscular Volume 94.4 fl (80-100); Mean Platelet Volume 10.6 fl (7.4-10.4); Platelet Count Result 383 k/mm3 (150-375); Red Blood Count 4.45 M/mm3 (4.2-5.4); Red Cell Distribution Width 13.7 % (11.5-14.5); White Blood Count 28.2 K/mm3 (4.5-10.0)
[2022-03-12 05:48] LABS: Alveolar/Arterial O2 Gradient 74.1 mmHg; Fractional Inspired Oxygen 36 %; HCO3 ABG 29.2 mEq/l (22.0-26.0); Oxygen Content ABG 19.7 %vol (16.0-22.0); Oxygen Saturation ABG 96.5 % (95.0-100.0); Oxyhemoglobin 96.2 % THb (90.0-100.0); PO2 ABG 102.5 mmHg (80.0-100.0); PO2 FiO2 Ratio Arterial Blood 2.85 %; Total Hemoglobin 14.5 g/dL (12.0-18.0); pH ABG 7.244 (7.350-7.450)
[2022-03-12 05:49] LABS: Device NASAL CANNULA; Modified Allen's Test Pass; Site Drawn RIGHT RADIAL
[2022-03-12 07:42] LABS: Band Neutrophils Percent 17 % (0-6); Lymphocytes Absolute Manual 0.84 K/mm3 (1.1-4.5); Monocytes Absolute Manual 0.84 K/mm3 (0.1-0.90); Monocytes Percent Manual 3 % (3-9); Neutrophils Percent Manual 77 % (46-73); Platelet Estimate Adequate (Adequate); Schistocytes None Seen (NORMAL); Total Cells Counted 100
[2022-03-12 07:45] LABS: Glucose Point of Care 255 mg/dl (65-105)
[2022-03-12] MEDS: ENOXAPARIN 80 MG/0.8 ML SYRINGE 70 MG SUB-Q ×2 (08:23→20:21)
[2022-03-12] MEDS: INSULIN ASPART (*BKC) 100 UNITS/ML SUB-Q ×2 (08:23→17:17)
[2022-03-12] MEDS: ATORVASTATIN 10 MG TABLET PO (08:25)
[2022-03-12] MEDS: METOPROLOL TARTRATE 12.5 MG TABLET PO ×2 (08:25→20:20)
[2022-03-12] MEDS: IPRATROPIUM BR 0.02% INH SOLN 0.5 MG/2.5 ML VIAL INHALATION ×3 (08:26→20:42)
[2022-03-12] MEDS: LEVALBUTEROL NEB 1.25 MG/3 ML 0.63 MG INHALATION ×4 (08:26→20:43)
--- NOTE | 2022-03-12 09:33 | PM.PNCARD ---
Progress Note: A&P Assessment and Plan (1) Atrial fibrillation with rapid ventricular response: Code(s): I48.91 - Unspecified atrial fibrillation Status: Acute Assessment and Plan: New onset AFib with RVR the setting of acute hypoxic respiratory failure and presumed community-acquired pneumonia relatively asymptomatic. Currently in atrial flutter rate generally in the 80's-90's. Rate control strategy being pursued Continue metoprolol 12.5mg b.i.d - her rate is adequately controlled on this dose. Would recommend increasing to 25mg b.i.d. if she becomes tachycardic Continue telemetry CHADS2 Vasc score 5. Systemic anticoagulation advised. Continue Eliquis 5mg b.i.d. Cardiology will sign off do not hesitate to contact us with any questions. Will arrange for follow up in our office. (2) Elevated troponin: Code(s): R77.8 - Other specified abnormalities of plasma proteins Status: Acute Assessment and Plan: Most likely secondary to type 2 infarction in setting of hypoxic respiratory failure, pneumonia, AFib with RVR less likely acute coronary syndrome. Patient does not report anginal symptoms. Troponins flat. Patient has multiple risk factors and cannot exclude underlying CAD. Can consider outpatient ischemia evaluation with lexiscan stress test. 2D echocardiogram yesterday showed normal left ventricular systolic function, EF 55-60%. RV systolic dysfunction, TAPSE 1.5. Mild lipomatous hypertrophy of the interatrial septum. Suggestion of circumscribed 1.5 cm echodensity attached to or within the interatrial septum of uncertain clinical significance. Recommend CT chest or HUBERT if clinically indicated. Conservative management at this time. Consider aspirin 81 mg daily although increase bleeding risks on concomitant Eliquis. (3) Acute respiratory failure with hypoxia: Code(s): J96.01 - Acute respiratory failure with hypoxia Status: Acute Assessment and Plan: Now on BiPAP. Management per primary service. (4) Pneumonia: Code(s): J18.9 - Pneumonia, unspecified organism Status: Acute Assessment and Plan: Continue IV antibiotics, bronchodilator therapy, steroids, O2 supplementation per primary service. (5) Benign essential HTN: Code(s): I10 - Essential (primary) hypertension Status: Acute Assessment and Plan: Hypertensive at presentation improved at this time. Continue monitor closely. Avoid excessive hypotension. (6) COPD (chronic obstructive pulmonary disease): Code(s): J44.9 - Chronic obstructive pulmonary disease, unspecified Status: Acute Assessment and Plan: History of extensive tobacco abuse. Management per primary service. (7) Diabetes mellitus: Code(s): E11.9 - Type 2 diabetes mellitus without complications Status: Acute Assessment and Plan: Management per primary service. Continue monitor closely. Subjective Date/time seen: 03/12/22 09:34 Cardiology follow up for atrial fibrillation Interval history: Heart rate improved today. Remains on BiPAP. No chest pain or palpitations. Review of Systems Review of Systems: All systems reviewed & are unremarkable except as noted in HPI and below Constitutional: Constitutional: Reports as per HPI and Reports no additional constitutional complaints Eyes: Eyes: Reports as per HPI and Reports no additional eye complaints ENT: Reports system reviewed and no additional complaints, except as documented and Reports as per HPI Cardiovascular: Cardiovascular: Reports as per HPI and Reports no additional cardiovascular complaints Respiratory: Respiratory: Reports as per HPI and Reports no additional respiratory complaints Gastrointestinal: Gastrointestinal: Reports as per HPI and Reports no additional gastrointestinal complaints Genitourinary: Genitourinary: Reports as per HPI Musculoskeletal: Musculoskeletal: Reports no additional m
[2022-03-12 10:28] LABS: Alveolar/Arterial O2 Gradient 191.2 mmHg; Base Excess ABG 1.3 mEq/l (+/-2.0); Fractional Inspired Oxygen 50 %; HCO3 ABG 29.2 mEq/l (22.0-26.0); Oxygen Content ABG 20.1 %vol (16.0-22.0); Oxygen Saturation ABG 96.7 % (95.0-100.0); Oxyhemoglobin 96.2 % THb (90.0-100.0); PCO2 ABG 59.9 mmHg (35.0-45.0); PO2 ABG 97.9 mmHg (80.0-100.0); PO2 FiO2 Ratio Arterial Blood 1.96 %; Total Hemoglobin 14.8 g/dL (12.0-18.0); pH ABG 7.306 (7.350-7.450)
[2022-03-12 10:29] LABS: Device NON-INVASIVE VENT; Modified Allen's Test Pass; Non-Invasive Expiratory Pressure 7 CMH2O; Non-Invasive Inspiratory Pressure 16 CMH2O; Non-Invasive Vent Rate 20 /MIN; Site Drawn RIGHT RADIAL
[2022-03-12 10:53] LABS: Hemoglobin A1C 8.2 % (<5.7)
[2022-03-12 12:28] LABS: Appearance Urine Clear (Clear); Bilirubin Urine Negative (Negative); Blood Urine Negative (Negative); Color Urine Yellow (Yellow); Glucose Urine UA Negative (Negative); Ketones Urine Negative (Negative); Leukocyte Esterase Ur Trace LEU/UL (Negative); Nitrate Urine Negative (Negative); Protein Urine Negative (Negative); Specific Grav Ur 1.015 (1.001-1.035); pH Urine 5.5 (5.0-9.0)
[2022-03-12 12:41] LABS: Mucus Urine Rare /lpf; RBC Urine 0-2 /hpf (0-2); Squamous Epithelial Cell Urine Rare /hpf (Few); WBC Clumps Urine Present /HPF; WBC Urine 16-20 /hpf
[2022-03-12 12:44] LABS: Add Urine Microscopic? YES
[2022-03-12 13:03] LABS: Glucose Point of Care 185 mg/dl (65-105)
--- NOTE | 2022-03-12 13:22 | PM.CNPUL ---
Assessment and Plan Assessment and plan (1) COPD exacerbation: Code(s): J44.1 - Chronic obstructive pulmonary disease with (acute) exacerbation Status: Acute Assessment and Plan: Patient with a 60 pack year history of tobacco use, quit 2014, carries a diagnosis of COPD. I have no PFTs or CT scan. Maintained on trilogy inhaler. She does not use home oxygen and her baseline dyspnea on exertion is 1/2 a block. She has never had any prior COPD exacerbations. Patient presents with COPD exacerbations with 5 days of worsening shortness of breath, increased phlegm production, change in color of her phlegm and hypoxia. Patient was also noted to be in AFib with RVR. patient's influenza, RSV and COVID RT PCR studies were negative. Blood cultures on 03/10 are negative to date. I believe she does have COPD and she currently has a COPD exacerbation. Patient is currently on levalbuterol 0.63 mcg Q 6 hours, ipratropium 0.5 mg nebulized q.6 hours, Solu-Medrol 40 mg IV q.8 hours. I will discontinue the trelegy as she is already on maximal beta agonist, muscarinic antagonist and steroids. The patient may have pneumonia and I agree with ceftriaxone and azithromycin both of which were started on 03/10. Patient presented with a blood gas of 7.30/47/74 with a serum bicarbonate of 26. She had no hypercarbic respiratory failure on admission. Subsequently in the hospital she did develop hypercarbic respiratory failure. The patient said that the BiPAP was very uncomfortable and that the airvo was uncomfortable and I switched her to a high-flow nasal cannula at 5 L and her saturations were 98%. I placed the patient on BiPAP and adjusted her mask for comfort and adjusted settings for comfort which resulted in a rate of 14, pressures 12/5, inspiratory time 1.2, rise time of 0.4 and 40%. this resulted in tidal volumes approximately 450. The patient thought that she would be able to tolerate. I will plan on continuing these settings tonight. I will follow the patient clinically without a blood gas in the morning. Since she did not present with hypercarbic respiratory failure or an elevated serum bicarbonate I will not commit her to home noninvasive ventilation at this time. I will treat her COPD exacerbation and possible pneumonia and reassess her daytime PaCO2 in the future After she has improved. (2) Atrial fibrillation with rapid ventricular response: Code(s): I48.91 - Unspecified atrial fibrillation Status: Acute Assessment and Plan: cardiology has been consulted. The patient is currently on metoprolol 12.5 mg p.o. q.12 hours, she is on full-dose Lovenox 70 mg subcu b.i.d.. She had an echocardiogram on 03/11 which was a technically difficult study with LVEF 55-60 RV function was reduced, RV size was normal, RA size is normal, trace tricuspid regurg with moderate pulmonary hypertension and estimated PASP of 45 mild lipomatous hypertrophy of the interatrial septum with a suggestion of a circumscribed 1.5 cm echodensity attached to or within the interatrial septum of uncertain clinical significance. Recommend CT chest her HUBERT if clinically indicated. History of Present Illness History of Present Illness Consult date: 03/12/22 Chief complaint: acute hypoxic respiratory failure,new a fib with r Narrative: 03/12 This is a new pulmonary consultation for COPD with hypoxemic and hypercarbic respiratory failure 86-year-old with a history of atrial fibrillation, diabetes, COPD on home trilogy presented to the emergency room on 03/10 with 5 days worsening shortness of breath, headache, nasal congestion, increased cough, increased phlegm production, change in color of from to green yellow in cloud. Patient had saturations of 96% on 6 L in the emergency room, she was in AFib with RVR at a rate of 140, her white blood cell count was 12.6, creatinine was 0.9, her BNP was 9630, her troponin was positive at 0.22 with a repeated
[2022-03-12 16:42] LABS: Glucose Point of Care 257 mg/dl (65-105)
--- NOTE | 2022-03-12 16:46 | PM.IMPN ---
Progress Note: A&P Assessment and Plan (1) Pneumonia: Code(s): J18.9 - Pneumonia, unspecified organism Status: Acute Assessment and Plan: -continue with azithromycin and Rocephin per community-acquired pneumonia antibiotic stewardship. -tailor antibiotics to results of blood and sputum cultures -continue with nebulizer treatment Chest x-ray with slight worsening today. if ascites is worsened as well. Patient also on steroid. Will recheck in a.m. and re-evaluate antibiotics Continue current antibioticsFor now (2) Atrial fibrillation with rapid ventricular response: Code(s): I48.91 - Unspecified atrial fibrillation Status: Acute Assessment and Plan: Started on Cardizem drip. Also given digoxin low pressure AFib is rate controlled now Will add metoprolol On Lovenox subQ History of AFib but not on anticoagulation chronically.- TSH normal Cardiology consulted Echo EF 55-60% septal wall motion abnormal due to left bundle-branch block. Where ventricular systolic function is reduced. Prominent moderator band. Mild lipomatous hypertrophy of the interatrial septum suggested a circumscribed 1.5 cm echodensity attached to or within the interatrial septum of uncertain clinical significance. (3) COPD (chronic obstructive pulmonary disease): Code(s): J44.9 - Chronic obstructive pulmonary disease, unspecified Status: Acute Assessment and Plan: -the patient Started on Solu Medrol should be continued -continue with nebulizer treatments. -continue with home inhalers (4) Hyperlipidemia: Code(s): E78.5 - Hyperlipidemia, unspecified Status: Acute Assessment and Plan: -continue with atorvastatin (5) FIFI (generalized anxiety disorder): Code(s): F41.1 - Generalized anxiety disorder Status: Acute Assessment and Plan: -continue with Ativan (6) Benign essential HTN: Code(s): I10 - Essential (primary) hypertension Status: Acute Assessment and Plan: -continue with lisinopril if blood pressure allows in the patient is off the Cardizem drip. (7) Diabetes mellitus: Code(s): E11.9 - Type 2 diabetes mellitus without complications Status: Acute Assessment and Plan: -hold metformin for now. -sliding scale insulin with Accu-Cheks AC and HS and hypoglycemic protocol. -check A1c Hyperglycemia likely due to steroid will increased moderate sliding scale Plan Acute hypoxic hypercapnic respiratory failure requiring BiPAP. worsened again respiratory acidosis. Placed back on BiPAP today. Pulmonary consultation will check ABG in a.m. BNP 9630. Elevated troponin with flat trajectory. Lactic acidosis likely due to underlying pneumonia and sepsis Mild hyponatremia Subjective Date/time seen: 03/12/22 16:46 Interval history: This is an 86-year-old female patient who has been coughing for the last 5 days.? She has a history of COPD.? The patient tested negative for COVID at home.? Her oxygenation at home was in the 80% she has been complaining of a cough nasal congestion headache increased sinus drainage for at least 5 days.? Her white count 12.6.? H&H is 15.5 and 48.0.? PH 7.301 CO2 was 47.3 PO2 74.4.? When I saw the patient she was on Airvo.? The patient tested negative for influenza A/B RSV and COVID.? Chest x-ray was read as pulmonary opacities may reflect moderate interstitial edema with small bilateral effusions infection/bronchiolitis not excluded.? She does have a history of having AFib and now she is in AFib with RVR she was started on a Cardizem drip.? Respiratory treatment and Rocephin and azithromycin.? The patient's heart rate remains in the 130.? The patient was refusing the BiPAP so that is why she was placed on the Airvo.? The patient was given Ativan so that she could tolerate the BiPAP.? Patient's heart rate continued to be in the 130s with the increase in the Cardizem drip and she was given digoxin which brought her
[2022-03-12 20:10] LABS: Glucose Point of Care 243 mg/dl (65-105)
[2022-03-12] MEDS: SODIUM CHLORIDE NASAL GEL 14.1 GM 1 APPLIC NASAL (20:22)
[2022-03-12] MEDS: ALPRAZolam (*CRX) 0.5 MG TABLET PO (20:24)
[2022-03-13] VITALS (27 sets, daily range): BP systolic 121–160; BP diastolic 63–68; PULSE 69–119; RESP 12–31; TEMP 36.2–36.6; O2SAT 92–98; BMI 25.5
[2022-03-13] MEDS: LEVALBUTEROL NEB 1.25 MG/3 ML 0.63 MG INHALATION ×4 (01:59→22:15)
[2022-03-13] MEDS: IPRATROPIUM BR 0.02% INH SOLN 0.5 MG/2.5 ML VIAL INHALATION ×4 (01:59→22:15)
[2022-03-13] MEDS: methylPREDNISolone SOD SUCC 40 MG VIAL IV PUSH (04:09)
[2022-03-13 04:49] LABS: Hemoglobin 14.5 g/dL (12.0-15.0); Mean Corpuscular HGB Conc 31.5 g/dl (32-36); Mean Corpuscular Hemoglobin 30.7 pg (26-34); Mean Corpuscular Volume 97.5 fl (80-100); Mean Platelet Volume 10.3 fl (7.4-10.4); Platelet Count Result 385 k/mm3 (150-375); Red Blood Count 4.72 M/mm3 (4.2-5.4); Red Cell Distribution Width 13.8 % (11.5-14.5); White Blood Count 30.9 K/mm3 (4.5-10.0)
[2022-03-13 05:17] LABS: Alanine Aminotransferase 45 U/L (6-35); Albumin Level 3.4 g/dL (3.5-5.1); Alkaline Phosphatase 174 U/L (38-126); Aspartate Amino Transferase 47 U/L (14-36); Bilirubin,Total 0.6 mg/dL (0.2-1.3); Blood Urea Nitrogen 66 mg/dL (7-17); Calcium 8.7 mg/dL (8.4-10.2); Carbon Dioxide 30 mmol/L (22-30); Chloride 97 mmol/L (98-107); Estimated CRCL calculation 30 ml/min; Estimated Glomerular Filt Rate 47; Glucose 277 mg/dL (65-110); Magnesium 2.9 mg/dL (1.6-2.3); Potassium 5.2 mmol/L (3.4-5.0)
[2022-03-13 05:36] LABS: Anion Gap 3 mmol/L (8-16); Sodium 130 mmol/L (137-145)
[2022-03-13 05:59] LABS: Band Neutrophils Percent 13 % (0-6); Lymphocytes Absolute Manual 2.78 K/mm3 (1.1-4.5); Monocytes Absolute Manual 0.61 K/mm3 (0.1-0.90); Monocytes Percent Manual 2 % (3-9); Neutrophils Percent Manual 76 % (46-73); Platelet Estimate Adequate (Adequate); Total Cells Counted 100
[2022-03-13 06:00] LABS: Anisocytosis 1+ (NORMAL); Ovalocytes 1+ (NORMAL); Poikilocytosis 2+ (NORMAL); Schistocytes 1+ (NORMAL)
[2022-03-13 07:46] LABS: Glucose Point of Care 295 mg/dl (65-105)
--- NOTE | 2022-03-13 08:30 | PM.IMPN ---
Progress Note: A&P Assessment and Plan (1) Pneumonia: Code(s): J18.9 - Pneumonia, unspecified organism Status: Acute Assessment and Plan: Continue Rocephin and azithromycin, follow-up blood and sputum cultures Bld cx NGTD (2) Atrial fibrillation with rapid ventricular response: Code(s): I48.91 - Unspecified atrial fibrillation Status: Acute Assessment and Plan: New onset AFib with RVR, appreciate cardiology consultation, now signed off Continue metoprolol 12.5 mg twice daily, will increase to 25 mg if able to tolerate this Currently on therapeutic Lovenox, will transition to Eliquis soon, consider adding aspirin 81 mg daily Echo showed an EF of 55-60% with abnormal ventricular septal wall motion noted on the left, reduced right ventricular systolic function, unable to assess diastolic function, mild lipomatous hypertrophy of the interatrial septum. Suggestion of circumscribed 1.5 cm echodensity attached to or within the interatrial septum of uncertain clinical significance. CTA ordered by pulmonology to rule out PE and further evaluate abnormality noted on echo, pending (3) COPD (chronic obstructive pulmonary disease): Code(s): J44.9 - Chronic obstructive pulmonary disease, unspecified Status: Acute Assessment and Plan: Steroids, nebulizers Currently getting Solu-Medrol 40 mg q.8 hours, will wean as able Continue BiPAP/Airvo, wean oxygen as tolerated (4) Hyperlipidemia: Code(s): E78.5 - Hyperlipidemia, unspecified Status: Acute Assessment and Plan: Continue Lipitor (5) FIFI (generalized anxiety disorder): Code(s): F41.1 - Generalized anxiety disorder Status: Acute Assessment and Plan: Continue home Xanax (6) Benign essential HTN: Code(s): I10 - Essential (primary) hypertension Status: Acute Assessment and Plan: Continue lisinopril and metoprolol (7) Diabetes mellitus: Code(s): E11.9 - Type 2 diabetes mellitus without complications Status: Acute Assessment and Plan: Hold metformin, continue Accu-Cheks and sliding scale insulin, A1c 8.2 (8) Acute respiratory failure with hypoxia: Code(s): J96.01 - Acute respiratory failure with hypoxia Status: Acute Assessment and Plan: Multifactorial secondary to COPD exacerbation, pneumonia, moderate pulmonary hypertension and right ventricular heart failure, wean as able (9) Hyponatremia: Code(s): E87.1 - Hypo-osmolality and hyponatremia Status: Acute Assessment and Plan: Asymptomatic, unsure of etiology, monitor, appears chronic Plan DVT prophylaxis with therapeutic Lovenox GI prophylaxis not indicated Code status full code Subjective Date/time seen: 03/13/22 08:30 Interval history: No overnight events noted. No chest pain or shortness of breath. No nausea, vomiting or diarrhea. No fevers or chills. Patient is refusing interventions. She does not want heroic measures or intubation, but her who is the POA is requesting that everything be done. Stable on BiPAP overnight. Somewhat confused today on 4 L nasal cannula. Refusing BiPAP during the day. Review of Systems Review of Systems: 12 point review of systems was assessed and was negative except as noted in the HPI Exam Narrative: General: No acute distress, alert and oriented per baseline, somewhat irritable HEENT: Atraumatic, normocephalic, mucous membranes moist CV: Irregularly irregular, S1, S2 Lungs: Diminished throughout, no wheeze Abdomen: Soft, nontender, nondistended Extremities: Normal to inspection Skin: No rashes noted, no lesions or wounds seen Psych: Irritable, dysthymic Objective Data Vital Signs Vital Signs: Vital Signs - 24 hr 03/12/22 08:39 03/12/22 08:45 03/12/22 08:46 Temperature Pulse Rate 90 95 Respiratory Rate 22 H 22 H Blood Pressure Pulse Oximetry 97 96 Oxygen Delivery BiPA
[2022-03-13] MEDS: THERAPEUTIC MULTIVITAMINS/MINERALS TAB (*BKC) 1 TABLET PO (09:13)
[2022-03-13] MEDS: METOPROLOL TARTRATE 12.5 MG TABLET PO ×2 (09:13→20:44)
[2022-03-13] MEDS: ATORVASTATIN 10 MG TABLET PO (09:13)
[2022-03-13] MEDS: ENOXAPARIN 80 MG/0.8 ML SYRINGE 70 MG SUB-Q ×2 (09:15→20:45)
[2022-03-13] MEDS: INSULIN ASPART (*BKC) 100 UNITS/ML SUB-Q ×3 (09:25→17:19)
[2022-03-13] MEDS: lisinopriL 5 MG TABLET PO (09:28)
--- NOTE | 2022-03-13 10:25 | PM.PNPUL ---
Progress Note: A&P Assessment and Plan (1) COPD exacerbation: Code(s): J44.1 - Chronic obstructive pulmonary disease with (acute) exacerbation Status: Acute Assessment and Plan: Patient with a 60 pack year history of tobacco use, quit 2014, carries a diagnosis of COPD. I have no PFTs or CT scan. Maintained on trilogy inhaler. She does not use home oxygen and her baseline dyspnea on exertion is 1/2 a block. She has never had any prior COPD exacerbations. 03/12/2022 Patient presents with COPD exacerbations with 5 days of worsening shortness of breath, increased phlegm production, change in color of her phlegm and hypoxia. Patient was also noted to be in AFib with RVR. patient's influenza, RSV and COVID RT PCR studies were negative. Blood cultures on 03/10 are negative to date. I believe she does have COPD and she currently has a COPD exacerbation. Patient is currently on levalbuterol 0.63 mcg Q 6 hours, ipratropium 0.5 mg nebulized q.6 hours, Solu-Medrol 40 mg IV q.8 hours. I will discontinue the trelegy as she is already on maximal beta agonist, muscarinic antagonist and steroids. The patient may have pneumonia and I agree with ceftriaxone and azithromycin both of which were started on 03/10. Patient presented with a blood gas of 7.30 with a serum bicarbonate of 26. She had no hypercarbic respiratory failure on admission. Subsequently in the hospital she did develop hypercarbic respiratory failure. The patient said that the BiPAP was very uncomfortable and that the airvo was uncomfortable and I switched her to a high-flow nasal cannula at 5 L and her saturations were 98%. I placed the patient on BiPAP and adjusted her mask for comfort and adjusted settings for comfort which resulted in a rate of 14, pressures 12/5, inspiratory time 1.2, rise time of 0.4 and 40%. this resulted in tidal volumes approximately 450. The patient thought that she would be able to tolerate. I will plan on continuing these settings tonight. I will follow the patient clinically without a blood gas in the morning. Since she did not present with hypercarbic respiratory failure or an elevated serum bicarbonate I will not commit her to home noninvasive ventilation at this time. I will treat her COPD exacerbation and possible pneumonia and reassess her daytime PaCO2 in the future after she has improved. 03/13 Patient had difficulty wearing her BiPAP last night and was given Xanax. She did tolerate BiPAP on and off but is somewhat lethargic this morning. She was on BiPAP and states that she is a little improved compared to yesterday. Currently she is on BiPAP set rate of 14, breathing 20 6, 12/5 with tidal volume 330 in 40% FiO2 with saturations 97%. Her white blood cell count is 30.9, creatinine is 1.10. Her chest x-ray today shows improved congestion and improved right lower lobe infiltrate. Will order CT angiogram of the chest to assess for pulmonary emboli and to assess her heart anatomy. Patient has no wheezing on exam today and I will decrease her Solu-Medrol from 40 Q 8 to 20 Q 6. I will continue levalbuterol and ipratropium nebulizers Q 6 hours. Continue ceftriaxone and azithromycin, today is day 4. Will continue BiPAP p.r.n. during the day and tonight she should use a BiPAP if she can tolerate it (she is very claustrophobic). I would not sedate the patient so that she can tolerate BiPAP. Goal saturation 90-94%, Wean oxygen as tolerated to achieve this. will follow with you (2) Atrial fibrillation with rapid ventricular response: Code(s): I48.91 - Unspecified atrial fibrillation Status: Acute Assessment and Plan: Cardiology has been consulted. The patient is currently on metoprolol 12.5 mg p.o. q.12 hours, she is on full-dose Lovenox 70 mg subcu b.i.d.. She had an echocardiogram on 03/11 which was a technically difficult study with LVEF 55-60 RV function was reduced, RV size was normal, RA
[2022-03-13] MEDS: methylPREDNISolone SOD SUCC 40 MG VIAL 20 MG IV PUSH ×3 (11:54→21:01)
[2022-03-13 12:17] LABS: Glucose Point of Care 311 mg/dl (65-105)
--- NOTE | 2022-03-13 15:49 | PC.NURSE ---
Dr. Angelo ordered CTA chest this morning. Patient refused test stating she wanted her present before giving consent. Patient's arrived at 1530. Patient refusing test even with present at bedside. Patient states she wants to be left alone . Dr. Angelo notified.
[2022-03-13 16:00] LABS: Glucose Point of Care 256 mg/dl (65-105)
[2022-03-13 17:09] LABS: Alveolar/Arterial O2 Gradient 129.9 mmHg; Base Excess ABG 6.7 mEq/l (+/-2.0); Fractional Inspired Oxygen 36 %; HCO3 ABG 33.1 mEq/l (22.0-26.0); Oxygen Content ABG 19.7 %vol (16.0-22.0); Oxygen Saturation ABG 92.4 % (95.0-100.0); Oxyhemoglobin 91.7 % THb (90.0-100.0); PCO2 ABG 53.6 mmHg (35.0-45.0); PO2 ABG 64.6 mmHg (80.0-100.0); PO2 FiO2 Ratio Arterial Blood 1.79 %; Total Hemoglobin 15.3 g/dL (12.0-18.0); pH ABG 7.408 (7.350-7.450)
[2022-03-13 17:12] LABS: Device NASAL CANNULA; Modified Allen's Test Pass; Site Drawn RIGHT RADIAL
[2022-03-13] MEDS: SODIUM CHLORIDE NASAL GEL 14.1 GM 1 APPLIC NASAL (20:45)
[2022-03-13] MEDS: ALPRAZolam (*CRX) 0.5 MG TABLET PO (20:54)
[2022-03-13 21:11] LABS: Glucose Point of Care 348 mg/dl (65-105)
[2022-03-14] VITALS (24 sets, daily range): BP systolic 107–148; BP diastolic 50–80; PULSE 74–117; RESP 16–26; TEMP 36.1–36.8; O2SAT 92–99
[2022-03-14] MEDS: LEVALBUTEROL NEB 1.25 MG/3 ML 0.63 MG INHALATION ×4 (03:40→20:46)
[2022-03-14] MEDS: IPRATROPIUM BR 0.02% INH SOLN 0.5 MG/2.5 ML VIAL INHALATION ×4 (03:40→20:46)
[2022-03-14] MEDS: methylPREDNISolone SOD SUCC 40 MG VIAL 20 MG IV PUSH ×2 (04:33→10:32)
[2022-03-14 05:15] LABS: Alanine Aminotransferase 41 U/L (6-35); Albumin Level 3.1 g/dL (3.5-5.1); Alkaline Phosphatase 162 U/L (38-126); Anion Gap 4 mmol/L (8-16); Aspartate Amino Transferase 27 U/L (14-36); Bilirubin,Total 0.4 mg/dL (0.2-1.3); Blood Urea Nitrogen 57 mg/dL (7-17); Calcium 8.5 mg/dL (8.4-10.2); Carbon Dioxide 33 mmol/L (22-30); Chloride 98 mmol/L (98-107); Estimated CRCL calculation 30 ml/min; Estimated Glomerular Filt Rate 47; Glucose 330 mg/dL (65-110); Potassium 5.3 mmol/L (3.4-5.0); Sodium 135 mmol/L (137-145)
[2022-03-14 05:17] LABS: Hematocrit 43.7 % (37.0-47.0); Hemoglobin 14.1 g/dL (12.0-15.0); Mean Corpuscular HGB Conc 32.3 g/dl (32-36); Mean Corpuscular Hemoglobin 30.7 pg (26-34); Mean Corpuscular Volume 95.2 fl (80-100); Mean Platelet Volume 9.7 fl (7.4-10.4); Platelet Count Result 395 k/mm3 (150-375); Red Blood Count 4.59 M/mm3 (4.2-5.4); Red Cell Distribution Width 13.7 % (11.5-14.5); White Blood Count 26.8 K/mm3 (4.5-10.0)
[2022-03-14 05:54] LABS: Band Neutrophils Percent 11 % (0-6); Blastocytes 2 %; Lymphocytes Absolute Manual 2.41 K/mm3 (1.1-4.5); Metamyelocytes Percent 1 %; Microcytosis 1+ (NORMAL); Monocytes Absolute Manual 0.53 K/mm3 (0.1-0.90); Monocytes Percent Manual 2 % (3-9); Myelocytes Percent 1 %; Neutrophils Absolute Manual 22.78 K/mm3 (1.7-7.2); Neutrophils Percent Manual 74 % (46-73); Platelet Estimate Adequate (Adequate); Total Cells Counted 100
[2022-03-14 05:55] LABS: Atypical Lymphocytes Present; Schistocytes None Seen (NORMAL)
[2022-03-14 08:51] LABS: Glucose Point of Care 340 mg/dl (65-105)
[2022-03-14] MEDS: INSULIN ASPART (*BKC) 100 UNITS/ML SUB-Q ×3 (08:55→17:41)
[2022-03-14] MEDS: ENOXAPARIN 80 MG/0.8 ML SYRINGE 70 MG SUB-Q (08:56)
--- NOTE | 2022-03-14 09:04 | PM.IMPN ---
Progress Note: A&P Assessment and Plan (1) Pneumonia: Code(s): J18.9 - Pneumonia, unspecified organism Status: Acute Assessment and Plan: Continue Rocephin and azithromycin, follow-up sputum culture Urine culture negative Bld cx NGTD (2) Atrial fibrillation with rapid ventricular response: Code(s): I48.91 - Unspecified atrial fibrillation Status: Acute Assessment and Plan: New onset AFib with RVR, appreciate cardiology consultation, now signed off Continue metoprolol 12.5 mg twice daily, will increase to 25 mg today Started on therapeutic Lovenox, transitioned to Eliquis, consider adding aspirin 81 mg daily per Cardiology recommendations Echo showed an EF of 55-60% with abnormal ventricular septal wall motion noted on the left, reduced right ventricular systolic function, unable to assess diastolic function, mild lipomatous hypertrophy of the interatrial septum. Suggestion of circumscribed 1.5 cm echodensity attached to or within the interatrial septum of uncertain clinical significance. Echo discussed extensively with Cardiology, no further workup needed for this finding. They will follow-up outpatient. CTA ordered by pulmonology to rule out PE and further evaluate abnormality noted on echo, no abnormality noted, no PE, bronchiolitis only (3) COPD (chronic obstructive pulmonary disease): Code(s): J44.9 - Chronic obstructive pulmonary disease, unspecified Status: Acute Assessment and Plan: Steroids, nebulizers Weaning Solu-Medrol 20 mg q.6 hours Continue BiPAP/Airvo, wean oxygen as tolerated Appreciate pulmonology consultation (4) Hyperlipidemia: Code(s): E78.5 - Hyperlipidemia, unspecified Status: Acute Assessment and Plan: Continue Lipitor (5) FIFI (generalized anxiety disorder): Code(s): F41.1 - Generalized anxiety disorder Status: Acute Assessment and Plan: Continue home Xanax (6) Benign essential HTN: Code(s): I10 - Essential (primary) hypertension Status: Acute Assessment and Plan: Continue lisinopril and metoprolol (7) Diabetes mellitus: Code(s): E11.9 - Type 2 diabetes mellitus without complications Status: Acute Assessment and Plan: Hold metformin, continue Accu-Cheks and sliding scale insulin, A1c 8.2 Start Lantus 10 units daily, change sliding scale to intensive from moderate (8) Acute respiratory failure with hypoxia: Code(s): J96.01 - Acute respiratory failure with hypoxia Status: Acute Assessment and Plan: Multifactorial secondary to COPD exacerbation, pneumonia, moderate pulmonary hypertension and right ventricular heart failure, wean as able (9) Hyponatremia: Code(s): E87.1 - Hypo-osmolality and hyponatremia Status: Acute Assessment and Plan: Asymptomatic, unsure of etiology, monitor, appears chronic Plan DVT prophylaxis with therapeutic Lovenox for afib GI prophylaxis not indicated Code status full code Subjective Date/time seen: 03/14/22 09:04 Interval history: No overnight events noted. No chest pain or shortness of breath. No nausea, vomiting or diarrhea. No fevers or chills. Patient more somnolent today. 96% on 4 L nasal cannula Review of Systems Review of Systems: ROS unobtainable: Yes unobtainable due to medical condition and unobtainable due to mental status Exam Narrative: General: No acute distress, alert and oriented per baseline HEENT: Atraumatic, normocephalic, mucous membranes moist CV: Irregularly irregular, S1, S2 Lungs: Diminished throughout, scattered crackles Abdomen: Soft, nontender, nondistended Extremities: Normal to inspection Skin: No rashes noted, no lesions or wounds seen Objective Data Vital Signs Vital Signs: Vital Signs - 24 hr 03/13/22 09:13 03/13/22 12:00 03/13/22 12:55 Temperature 98 F Pulse Rate 93 78 Respiratory Rate 16 Blood Pressure 136/68 Pul
[2022-03-14] MEDS: METOPROLOL TARTRATE 25 MG TABLET PO ×2 (10:21→21:27)
[2022-03-14] MEDS: ATORVASTATIN 10 MG TABLET PO (10:24)
[2022-03-14] MEDS: THERAPEUTIC MULTIVITAMINS/MINERALS TAB (*BKC) 1 TABLET PO (10:25)
[2022-03-14] MEDS: lisinopriL 5 MG TABLET PO (10:25)
--- NOTE | 2022-03-14 11:30 | PM.PNPUL ---
Progress Note: A&P Assessment and Plan (1) COPD exacerbation: Code(s): J44.1 - Chronic obstructive pulmonary disease with (acute) exacerbation Status: Acute Assessment and Plan: Patient with a 60 pack year history of tobacco use, quit 2014, carries a diagnosis of COPD. CT scan of the chest on 03/13/2022 shows moderate to severe panlobular emphysema. I have no PFTs. Maintained on trilogy inhaler. She does not use home oxygen and her baseline dyspnea on exertion is 1/2 a block. She has never had any prior COPD exacerbations. 03/12/2022 Patient presents with COPD exacerbations with 5 days of worsening shortness of breath, increased phlegm production, change in color of her phlegm and hypoxia. Patient was also noted to be in AFib with RVR. patient's influenza, RSV and COVID RT PCR studies were negative. Blood cultures on 03/10 are negative to date. I believe she does have COPD and she currently has a COPD exacerbation. Patient is currently on levalbuterol 0.63 mcg Q 6 hours, ipratropium 0.5 mg nebulized q.6 hours, Solu-Medrol 40 mg IV q.8 hours. I will discontinue the trelegy as she is already on maximal beta agonist, muscarinic antagonist and steroids. The patient may have pneumonia and I agree with ceftriaxone and azithromycin both of which were started on 03/10. Patient presented with a blood gas of 7. with a serum bicarbonate of 26. She had no hypercarbic respiratory failure on admission. Subsequently in the hospital she did develop hypercarbic respiratory failure. The patient said that the BiPAP was very uncomfortable and that the airvo was uncomfortable and I switched her to a high-flow nasal cannula at 5 L and her saturations were 98%. I placed the patient on BiPAP and adjusted her mask for comfort and adjusted settings for comfort which resulted in a rate of 14, pressures 12/5, inspiratory time 1.2, rise time of 0.4 and 40%. this resulted in tidal volumes approximately 450. The patient thought that she would be able to tolerate. I will plan on continuing these settings tonight. I will follow the patient clinically without a blood gas in the morning. Since she did not present with hypercarbic respiratory failure or an elevated serum bicarbonate I will not commit her to home noninvasive ventilation at this time. I will treat her COPD exacerbation and possible pneumonia and reassess her daytime PaCO2 in the future after she has improved. 03/13 Patient had difficulty wearing her BiPAP last night and was given Xanax. She did tolerate BiPAP on and off but is somewhat lethargic this morning. She was on BiPAP and states that she is a little improved compared to yesterday. Currently she is on BiPAP set rate of 14, breathing 20 6, 12/5 with tidal volume 330 in 40% FiO2 with saturations 97%. Her white blood cell count is 30.9, creatinine is 1.10. Her chest x-ray today shows improved congestion and improved right lower lobe infiltrate. Will order CT angiogram of the chest to assess for pulmonary emboli and to assess her heart anatomy. Patient has no wheezing on exam today and I will decrease her Solu-Medrol from 40 Q 8 to 20 Q 6. I will continue levalbuterol and ipratropium nebulizers Q 6 hours. Continue ceftriaxone and azithromycin, today is day 4. Will continue BiPAP p.r.n. during the day and tonight she should use a BiPAP if she can tolerate it (she is very claustrophobic). I would not sedate the patient so that she can tolerate BiPAP. Goal saturation 90-94%, Wean oxygen as tolerated to achieve this. Later in the day she had a blood gas on 4 L nasal cannula the pH of 7.41/54/65 indicating chronic hypercarbic respiratory failure from her COPD. Patient had a CT angiogram of the chest that was negative for PE, moderate to severe panlobular emphysema, tree-in-bud infiltrates with lower lobe consolidations. 03/14 Patient could not tolerate BiPAP last night. She wore from 10 to 2:45 and then had to
[2022-03-14 11:34] LABS: Lactic Acid Reflex 1.8 mmol/L (0.7-2.0)
[2022-03-14 11:46] LABS: CRP 5.6 mg/dL (<1.0)
[2022-03-14 12:19] LABS: Procalcitonin 0.1 ng/mL
[2022-03-14] MEDS: INSULIN GLARGINE (*BKC) 100 UNITS/ML 10 UNITS SUB-Q ×2 (12:45→21:28)
[2022-03-14 13:12] LABS: Glucose Point of Care 309 mg/dl (65-105)
[2022-03-14 13:15] LABS: Influenza A QL RT-PCR Negative (Negative); Influenza B QL RT-PCR Negative (Negative); RSV RNA, RT-PCR Negative (Negative); SARS-CoV-2 RNA PCR Negative
[2022-03-14 21:11] LABS: Glucose Point of Care 236 mg/dl (65-105)
[2022-03-14] MEDS: APIXABAN 5 MG TABLET PO (21:28)
[2022-03-14] MEDS: SODIUM CHLORIDE NASAL GEL 14.1 GM 1 APPLIC NASAL (21:41)
[2022-03-15] VITALS (25 sets, daily range): BP systolic 123–162; BP diastolic 48–70; PULSE 67–115; RESP 18–24; TEMP 36.3–36.4; O2SAT 93–100
[2022-03-15 05:16] LABS: Hemoglobin 14.9 g/dL (12.0-15.0); Mean Corpuscular HGB Conc 31.7 g/dl (32-36); Mean Corpuscular Hemoglobin 30.8 pg (26-34); Mean Corpuscular Volume 97.3 fl (80-100); Mean Platelet Volume 10.1 fl (7.4-10.4); Platelet Count Result 437 k/mm3 (150-375); Red Blood Count 4.83 M/mm3 (4.2-5.4); Red Cell Distribution Width 13.7 % (11.5-14.5); White Blood Count 30.9 K/mm3 (4.5-10.0)
[2022-03-15 05:21] LABS: Alveolar/Arterial O2 Gradient 148.4 mmHg; Base Excess ABG 10.1 mEq/l (+/-2.0); Fractional Inspired Oxygen 40 %; HCO3 ABG 38.1 mEq/l (22.0-26.0); Modified Allen's Test Pass; Oxygen Content ABG 26.4 %vol (16.0-22.0); Oxygen Saturation ABG 93.5 % (95.0-100.0); Oxyhemoglobin 92.9 % THb (90.0-100.0); PCO2 ABG 59.8 mmHg (35.0-45.0); Site Drawn RIGHT RADIAL; Total Hemoglobin 20.3 g/dL (12.0-18.0); pH ABG 7.422 (7.350-7.450)
[2022-03-15 05:22] LABS: Device OTHER DEVICE
[2022-03-15 05:32] LABS: Alanine Aminotransferase 43 U/L (6-35); Albumin Level 3.3 g/dL (3.5-5.1); Alkaline Phosphatase 134 U/L (38-126); Aspartate Amino Transferase 35 U/L (14-36); Bilirubin,Total 0.4 mg/dL (0.2-1.3); Blood Urea Nitrogen 50 mg/dL (7-17); Carbon Dioxide > 40 mmol/L (22-30); Chloride 97 mmol/L (98-107); Estimated CRCL calculation 40 ml/min; Estimated Glomerular Filt Rate > 60; Glucose 211 mg/dL (65-110); Potassium 5.2 mmol/L (3.4-5.0); Sodium 137 mmol/L (137-145)
[2022-03-15 06:40] LABS: Band Neutrophils Percent 8 % (0-6); Lymphocytes Absolute Manual 1.85 K/mm3 (1.1-4.5); Metamyelocytes Percent 3 %; Monocytes Absolute Manual 1.54 K/mm3 (0.1-0.90); Monocytes Percent Manual 5 % (3-9); Neutrophils Absolute Manual 26.57 K/mm3 (1.7-7.2); Neutrophils Percent Manual 78 % (46-73); Total Cells Counted 100
[2022-03-15 06:41] LABS: Hypochromasia 1+ (NORMAL); Large Platelets Present; Schistocytes None Seen (NORMAL); Target Cells 1+ (NORMAL)
[2022-03-15] MEDS: LEVALBUTEROL NEB 1.25 MG/3 ML 0.63 MG INHALATION ×3 (07:38→21:04)
[2022-03-15] MEDS: IPRATROPIUM BR 0.02% INH SOLN 0.5 MG/2.5 ML VIAL INHALATION ×3 (07:38→21:04)
--- NOTE | 2022-03-15 07:38 | PM.IMPN ---
Progress Note: A&P Assessment and Plan (1) Pneumonia: Code(s): J18.9 - Pneumonia, unspecified organism Status: Acute Assessment and Plan: Continue Rocephin for 10 days, end date 03/19, follow-up sputum culture Completed 5 day course of azithromycin Urine culture negative Bld cx NGTD 03/15: In light of worsened mentation and leukocytosis, will escalate abx to vanc + imipenem (2) Atrial fibrillation with rapid ventricular response: Code(s): I48.91 - Unspecified atrial fibrillation Status: Acute Assessment and Plan: New onset AFib with RVR, appreciate cardiology consultation, now signed off, rate controlled on metoprolol 25 mg twice daily Continue eliquis, consider adding aspirin 81 mg daily per Cardiology recommendations Echo showed an EF of 55-60% with abnormal ventricular septal wall motion noted on the left, reduced right ventricular systolic function, unable to assess diastolic function, mild lipomatous hypertrophy of the interatrial septum. Suggestion of circumscribed 1.5 cm echodensity attached to or within the interatrial septum of uncertain clinical significance. Echo discussed extensively with Cardiology, no further workup needed for this finding. They will follow-up outpatient. CTA ordered by pulmonology to rule out PE and further evaluate abnormality noted on echo, no abnormality noted, no PE, bronchiolitis only (3) COPD (chronic obstructive pulmonary disease): Code(s): J44.9 - Chronic obstructive pulmonary disease, unspecified Status: Acute Assessment and Plan: Completed 5 day course high dose steroids Continue nebulizers Continue BiPAP/Airvo, wean oxygen as tolerated Appreciate pulmonology consultation (4) Hyperlipidemia: Code(s): E78.5 - Hyperlipidemia, unspecified Status: Acute Assessment and Plan: Continue Lipitor (5) FIFI (generalized anxiety disorder): Code(s): F41.1 - Generalized anxiety disorder Status: Acute Assessment and Plan: Continue home Xanax (6) Benign essential HTN: Code(s): I10 - Essential (primary) hypertension Status: Acute Assessment and Plan: Continue lisinopril and metoprolol (7) Diabetes mellitus: Code(s): E11.9 - Type 2 diabetes mellitus without complications Status: Acute Assessment and Plan: Hold metformin, continue Accu-Cheks and intensive sliding scale insulin, A1c 8.2 Increase lantus to 20 units nightly (8) Acute respiratory failure with hypoxia: Code(s): J96.01 - Acute respiratory failure with hypoxia Status: Acute (9) Hyponatremia: Code(s): E87.1 - Hypo-osmolality and hyponatremia Status: Acute Assessment and Plan: Asymptomatic, unsure of etiology, monitor, appears chronic (10) Hyperkalemia: Code(s): E87.5 - Hyperkalemia Status: Acute Assessment and Plan: Unsure of etiology, appears stable between 5-5.3, monitor telemetry, hold off on interventions for now Kidney function appears stable, but still with some mild JOSE DANIEL likely causing the hyperkalemia Will give gentle IVF today and reassess tomorrow, consider nephrology consult if does not respond (11) Chronic respiratory failure with hypercapnia: Code(s): J96.12 - Chronic respiratory failure with hypercapnia Status: Acute Assessment and Plan: Multifactorial secondary to COPD exacerbation, viral and/or bacterial pneumonia, moderate pulmonary hypertension and right ventricular heart failure, wean as able Plan Long discussion had with patient and regarding code status. They have agreed to change to DNR/DNI. DVT prophylaxis with eliquis GI prophylaxis not indicated Code status DNR/DNI Subjective Date/time seen: 03/15/22 07:38 Interval history: Patient appears much worse today. More somnolent, more confused, less interactive. No overnight events noted. 94% on 4 L nasal cannula Review of Systems Review of Sy
[2022-03-15 07:41] LABS: Glucose Point of Care 259 mg/dl (65-105)
[2022-03-15 07:59] LABS: NT Pro B Type Natriuretic Pept 2120 pg/mL (5-100)
[2022-03-15 08:52] LABS: Glucose Point of Care 228 mg/dl (65-105)
[2022-03-15] MEDS: SODIUM CHLORIDE 0.9% IV 1,000 ML 100 ML IV CONT (09:03)
[2022-03-15] MEDS: ATORVASTATIN 10 MG TABLET PO (09:10)
[2022-03-15] MEDS: METOPROLOL TARTRATE 25 MG TABLET PO ×2 (09:10→20:29)
[2022-03-15] MEDS: APIXABAN 5 MG TABLET PO ×2 (09:10→20:29)
[2022-03-15] MEDS: THERAPEUTIC MULTIVITAMINS/MINERALS TAB (*BKC) 1 TABLET PO (09:11)
[2022-03-15] MEDS: lisinopriL 5 MG TABLET PO (09:11)
[2022-03-15] MEDS: INSULIN ASPART (*BKC) 100 UNITS/ML SUB-Q (12:04)
[2022-03-15 14:23] LABS: Glucose Point of Care 326 mg/dl (65-105)
[2022-03-15 16:23] LABS: Anion Gap -1 mmol/L (8-16); Blood Urea Nitrogen 43 mg/dL (7-17); Calcium 8.5 mg/dL (8.4-10.2); Carbon Dioxide 38 mmol/L (22-30); Chloride 104 mmol/L (98-107); Estimated CRCL calculation 40 ml/min; Estimated Glomerular Filt Rate > 60; Glucose 215 mg/dL (65-110); Potassium 4.9 mmol/L (3.4-5.0); Sodium 141 mmol/L (137-145)
[2022-03-15 16:57] LABS: Appearance Urine Clear (Clear); Bilirubin Urine Negative (Negative); Blood Urine 1+ (Negative); Color Urine Yellow (Yellow); Glucose Urine UA 1+ mg/dL (Negative); Ketones Urine Negative (Negative); Leukocyte Esterase Ur Negative LEU/UL (NEGATIVE); Nitrate Urine Negative (Negative); Protein Urine Negative (Negative); Urobilinogen Urine 0.2 mg/dL (<2.0); pH Urine 5.5 (5.0-9.0)
[2022-03-15 17:03] LABS: Glucose Point of Care 190 mg/dl (65-105)
[2022-03-15 17:10] LABS: Bacteria Urine Trace /hpf; Mucus Urine Rare /lpf; Squamous Epithelial Cell Urine Rare /hpf (Few)
[2022-03-15 17:16] LABS: Add Urine Microscopic? YES
[2022-03-15] MEDS: SODIUM CHLORIDE NASAL GEL 14.1 GM 1 APPLIC NASAL (20:29)
[2022-03-15] MEDS: INSULIN GLARGINE (*BKC) 100 UNITS/ML 20 UNITS SUB-Q (21:35)
[2022-03-15 21:40] LABS: Glucose Point of Care 228 mg/dl (65-105)
[2022-03-15 22:18] LABS: Glucose Point of Care 241 mg/dl (65-105)
--- NOTE | 2022-03-15 23:04 | PCRCNOTE ---
Pt. placed on avaps settings as well as apnea link at 2250.
[2022-03-16] VITALS (22 sets, daily range): BP systolic 116–159; BP diastolic 50–72; PULSE 69–104; RESP 14–22; TEMP 35.9–36.5; O2SAT 92–97
[2022-03-16] MEDS: LEVALBUTEROL NEB 1.25 MG/3 ML 0.63 MG INHALATION ×4 (02:21→19:42)
[2022-03-16] MEDS: IPRATROPIUM BR 0.02% INH SOLN 0.5 MG/2.5 ML VIAL INHALATION ×4 (02:21→19:42)
[2022-03-16 05:25] LABS: Basophils Absolute Auto 0.1 K/mm3 (0.0-0.1); Basophils Percent Auto 0.5 % (0.2-1.2); Eosinophils Percent Auto 0.1 % (0-4.4); Hematocrit 41.2 % (37.0-47.0); Immature Granulocyte Absolute 0.99 K/mm3 (0.00-0.031); Lymphocytes Absolute Auto 0.95 K/mm3 (0.9-3.2); Lymphocytes Percent Auto 3.8 % (18.3-44.2); Mean Corpuscular HGB Conc 31.6 g/dl (32-36); Mean Corpuscular Hemoglobin 30.4 pg (26-34); Mean Corpuscular Volume 96.3 fl (80-100); Mean Platelet Volume 10.1 fl (7.4-10.4); Monocytes Absolute Auto 1.2 K/mm3 (0.1-0.6); Monocytes Percent Auto 4.8 % (2.6-8.5); Neutrophils Absolute Auto 21.5 K/mm3 (1.3-6.7); Neutrophils Percent Auto 86.8 % (45.5-73.1); Platelet Count Result 382 k/mm3 (150-375); Red Blood Count 4.28 M/mm3 (4.2-5.4); Red Cell Distribution Width 13.9 % (11.5-14.5); White Blood Count 24.8 K/mm3 (4.5-10.0)
[2022-03-16 05:41] LABS: Alanine Aminotransferase 37 U/L (6-35); Albumin Level 2.8 g/dL (3.5-5.1); Alkaline Phosphatase 106 U/L (38-126); Anion Gap 0 mmol/L (8-16); Aspartate Amino Transferase 28 U/L (14-36); Bilirubin,Total 0.5 mg/dL (0.2-1.3); Blood Urea Nitrogen 34 mg/dL (7-17); Calcium 8.2 mg/dL (8.4-10.2); Carbon Dioxide 37 mmol/L (22-30); Chloride 105 mmol/L (98-107); Estimated CRCL calculation 46 ml/min; Estimated Glomerular Filt Rate > 60; Glucose 149 mg/dL (65-110); Potassium 4.4 mmol/L (3.4-5.0); Sodium 142 mmol/L (137-145)
[2022-03-16 08:13] LABS: Glucose Point of Care 133 mg/dl (65-105)
[2022-03-16] MEDS: THERAPEUTIC MULTIVITAMINS/MINERALS TAB (*BKC) 1 TABLET PO (08:23)
[2022-03-16] MEDS: APIXABAN 5 MG TABLET PO ×2 (08:23→22:19)
[2022-03-16] MEDS: ATORVASTATIN 10 MG TABLET PO (08:23)
[2022-03-16] MEDS: METOPROLOL TARTRATE 25 MG TABLET PO ×2 (08:23→22:18)
[2022-03-16] MEDS: lisinopriL 5 MG TABLET PO (08:23)
--- NOTE | 2022-03-16 09:58 | PM.IMPN ---
Progress Note: A&P Assessment and Plan (1) Pneumonia: Code(s): J18.9 - Pneumonia, unspecified organism Status: Acute Assessment and Plan: Continue Rocephin for 10 days, end date 03/19, follow-up sputum culture collected n pending Currently on imipenem and vancomycin High WBC count could be secondary to use of prednisone as well (2) Atrial fibrillation with rapid ventricular response: Code(s): I48.91 - Unspecified atrial fibrillation Status: Acute Assessment and Plan: , rate controlled on metoprolol 25 mg twice daily Continue eliquis, consider adding aspirin 81 mg daily per Cardiology recommendations Echo showed an EF of 55-60% CTA negative for PE (3) COPD (chronic obstructive pulmonary disease): Code(s): J44.9 - Chronic obstructive pulmonary disease, unspecified Status: Acute Assessment and Plan: Completed 5 day course high dose steroids Continue nebulizers Continue BiPAP/Airvo, wean oxygen as tolerated Appreciate pulmonology consultation (4) Hyperlipidemia: Code(s): E78.5 - Hyperlipidemia, unspecified Status: Acute Assessment and Plan: Continue Lipitor (5) FIFI (generalized anxiety disorder): Code(s): F41.1 - Generalized anxiety disorder Status: Acute Assessment and Plan: Currently on a small dose of alprazolam. Will continue monitor for any respiratory depression as patient has severe COPD (6) Benign essential HTN: Code(s): I10 - Essential (primary) hypertension Status: Acute Assessment and Plan: Well controlled Continue lisinopril and metoprolol (7) Diabetes mellitus: Code(s): E11.9 - Type 2 diabetes mellitus without complications Status: Acute Assessment and Plan: Restart metformin, continue Accu-Cheks and intensive sliding scale insulin, A1c 8.2 lantus to 20 units nightly (8) Acute respiratory failure with hypoxia: Code(s): J96.01 - Acute respiratory failure with hypoxia Status: Acute (9) Hyponatremia: Code(s): E87.1 - Hypo-osmolality and hyponatremia Status: Acute Assessment and Plan: Current sodium is back to 142 BUN creatinine is normal (10) Hyperkalemia: Code(s): E87.5 - Hyperkalemia Status: Acute Assessment and Plan: Corrected (11) Chronic respiratory failure with hypercapnia: Code(s): J96.12 - Chronic respiratory failure with hypercapnia Status: Acute Assessment and Plan: Multifactorial secondary to COPD exacerbation, viral and/or bacterial pneumonia, moderate pulmonary hypertension and right ventricular heart failure, wean as able Plan Long discussion had with patient and regarding code status. They have agreed to change to DNR/DNI. DVT prophylaxis with eliquis GI prophylaxis not indicated Code status DNR/DNI Time Spent With Patient Time with patient: 25 - 35 minutes Subjective Date/time seen: 03/16/22 09:58 Interval history: Patient much more alert family at bedside no chest pain or shortness of breath, still has productive sputum Review of Systems Review of Systems: All systems reviewed & are unremarkable except as noted in HPI and below Exam Const: General: comfortable and no acute distress HENMT: Mouth: Yes moist mucous membranes Eyes: General: appearance normal, both eyes and all related structures Neck: Neck: supple Resp: Auscultation: diminished lung sounds Cardio: Rhythm: abnormal rhythm GI: GI Palp: Yes Soft to palpation Auscultation: normal bowel sounds Skin: General skin exam: normal color Wounds: no wounds Neuro: General: deep tendon reflexes 2+ bilaterally Speech: normal speech Extrem: General: normal to inspection Psych: Mental Status: mental status grossly normal Objective Data Vital Signs Vital Signs: Vital Signs - 24 hr 03/15/22 12:00 03/15/22 13:43 03/15/22 13:44 Temperature 36.3 C L Pulse Rat
[2022-03-16 10:48] LABS: Alanine Aminotransferase 38 U/L (6-35); Albumin Level 2.8 g/dL (3.5-5.1); Alkaline Phosphatase 104 U/L (38-126); Anion Gap 3 mmol/L (8-16); Aspartate Amino Transferase 33 U/L (14-36); Bilirubin,Total 0.5 mg/dL (0.2-1.3); Blood Urea Nitrogen 34 mg/dL (7-17); Calcium 7.8 mg/dL (8.4-10.2); Carbon Dioxide 31 mmol/L (22-30); Chloride 103 mmol/L (98-107); Estimated CRCL calculation 52 ml/min; Estimated Glomerular Filt Rate > 60; Glucose 246 mg/dL (65-110); Potassium 4.4 mmol/L (3.4-5.0); Sodium 137 mmol/L (137-145)
[2022-03-16 11:16] LABS: Hemoglobin 12.9 g/dL (12.0-15.0); Mean Corpuscular HGB Conc 31.5 g/dl (32-36); Mean Corpuscular Hemoglobin 31.1 pg (26-34); Mean Corpuscular Volume 98.8 fl (80-100); Platelet Count Result 339 k/mm3 (150-375); Red Blood Count 4.15 M/mm3 (4.2-5.4); White Blood Count 24.5 K/mm3 (4.5-10.0)
[2022-03-16 12:12] LABS: Glucose Point of Care 231 mg/dl (65-105)
[2022-03-16] MEDS: INSULIN ASPART (*BKC) 100 UNITS/ML SUB-Q (12:31)
--- NOTE | 2022-03-16 13:32 | PCOTNOTE ---
Attempted OT Evaluation; pt. refused stating being tired as she already worked with PT. Will attempt again tomorrow as able.
--- NOTE | 2022-03-16 15:06 | PM.PNPUL ---
Progress Note: A&P Assessment and Plan (1) COPD exacerbation: Code(s): J44.1 - Chronic obstructive pulmonary disease with (acute) exacerbation Status: Acute Assessment and Plan: Patient has a 60 pack year history of tobacco use, quit 2014, carries a diagnosis of COPD. CT scan of the chest on 03/13/2022 shows moderate to severe panlobular emphysema. I have no PFTs. Maintained on Trelegy inhaler. She does not use home oxygen and her baseline dyspnea on exertion is 1/2 a block. She has never had any prior COPD exacerbations. 03/12/2022 Patient presents with COPD exacerbations with 5 days of worsening shortness of breath, increased phlegm production, change in color of her phlegm and hypoxia. Patient was also noted to be in AFib with RVR. patient's influenza, RSV and COVID RT PCR studies were negative. Blood cultures on 03/10 are negative to date. She has COPD and she currently has a COPD exacerbation. Patient is currently on levalbuterol 0.63 mcg Q 6 hours, ipratropium 0.5 mg nebulized q.6 hours, Solu-Medrol 40 mg IV q.8 hours. Discontinue the Trelegy as she is already on maximal beta agonist, muscarinic antagonist and steroids. The patient may have pneumonia; agree with ceftriaxone and azithromycin both of which were started on 03/10. Patient presented with a blood gas of 7.30/47/74 with a serum bicarbonate of 26. She had no hypercarbic respiratory failure on admission. Subsequently in the hospital, she did develop hypercarbic respiratory failure. The patient said that the BiPAP was very uncomfortable and that the Airvo was uncomfortable; switched her to a high-flow nasal cannula at 5 L and her saturations were 98%. Placed the patient on BiPAP and adjusted her mask for comfort and adjusted settings for comfort which resulted in a rate of 14, pressures 12/5, inspiratory time 1.2, rise time of 0.4 and 40%. this resulted in tidal volumes approximately 450. The patient thought that she would be able to tolerate. I will plan on continuing these settings tonight. I will follow the patient clinically without a blood gas in the morning. Since she did not present with hypercarbic respiratory failure or an elevated serum bicarbonate I will not commit her to home noninvasive ventilation at this time. Continue to treat her COPD exacerbation and possible pneumonia and reassess her daytime PaCO2 in the future after she has improved. 03/13 Patient had difficulty wearing her BiPAP last night and was given Xanax. She did tolerate BiPAP on and off but is somewhat lethargic this morning. She was on BiPAP and states that she is a little improved compared to yesterday. Currently she is on BiPAP set rate of 14, breathing 20 6, 12/5 with tidal volume 330 in 40% FiO2 with saturations 97%. Her white blood cell count is 30.9, creatinine is 1.10. Her chest x-ray today shows improved congestion and improved right lower lobe infiltrate. Will order CT angiogram of the chest to assess for pulmonary emboli and to assess her heart anatomy. Patient has no wheezing on exam today and I will decrease her Solu-Medrol from 40 Q 8 to 20 Q 6. I will continue levalbuterol and ipratropium nebulizers Q 6 hours. Continue ceftriaxone and azithromycin, today is day 4. Will continue BiPAP p.r.n. during the day and tonight she should use a BiPAP if she can tolerate it (she is very claustrophobic). I would not sedate the patient so that she can tolerate BiPAP. Goal saturation 90-94%, Wean oxygen as tolerated to achieve this. Later in the day she had a blood gas on 4 L nasal cannula the pH of 7.41/54/65 indicating chronic hypercarbic respiratory failure from her COPD. Patient had a CT angiogram of the chest that was negative for PE, moderate to severe panlobular emphysema, tree-in-bud infiltrates with lower lobe consolidations. 03/14 Patient could not tolerate BiPAP last night. She wore from 10 to 2:45 and then had to take it off as she could not tolerate it
--- NOTE | 2022-03-16 15:38 | PC.NURSE ---
Report called to [facility] on [facility]. Patient will be transported to [facility] by bed. Family currently with patient and aware of impending move.
--- NOTE | 2022-03-16 15:57 | PC.NURSE ---
Transferred patient to 240 via bed with nasal cannula on, meds and bipap sent with patient at [id number]
--- NOTE | 2022-03-16 16:11 | PCDIET ---
This patient, Amira Myers, was received from [[facility] ] on 03/16/22 at 1612. Patient/family oriented to unit policies and routines. Patient in bed with no complaints at this time. Family at bedside.
[2022-03-16 17:10] LABS: Glucose Point of Care 128 mg/dl (65-105)
[2022-03-16] MEDS: metFORMIN HCL 500 MG TABLET PO (17:15)
[2022-03-16] MEDS: SODIUM CHLORIDE NASAL GEL 14.1 GM 1 APPLIC NASAL (22:19)
[2022-03-16] MEDS: INSULIN GLARGINE (*BKC) 100 UNITS/ML 20 UNITS SUB-Q (23:04)
[2022-03-16 23:15] LABS: Glucose Point of Care 143 mg/dl (65-105)
[2022-03-17] VITALS (21 sets, daily range): BP systolic 123–143; BP diastolic 52–84; PULSE 74–98; RESP 16–24; TEMP 36.3–36.9; O2SAT 88–97
[2022-03-17] MEDS: IPRATROPIUM BR 0.02% INH SOLN 0.5 MG/2.5 ML VIAL INHALATION ×4 (03:13→19:27)
[2022-03-17] MEDS: LEVALBUTEROL NEB 1.25 MG/3 ML 0.63 MG INHALATION ×4 (03:14→19:28)
[2022-03-17 06:18] LABS: Basophils Absolute Auto 0.1 K/mm3 (0.0-0.1); Basophils Percent Auto 0.4 % (0.2-1.2); Eosinophils Absolute Auto 0.1 K/mm3 (0-0.3); Eosinophils Percent Auto 0.3 % (0-4.4); Hematocrit 40.8 % (37.0-47.0); Hemoglobin 12.9 g/dL (12.0-15.0); Immature Granulocyte Absolute 0.97 K/mm3 (0.00-0.031); Immature Granulocyte Percent A 4.2 % (0-0.5); Lymphocytes Absolute Auto 0.78 K/mm3 (0.9-3.2); Lymphocytes Percent Auto 3.4 % (18.3-44.2); Mean Corpuscular HGB Conc 31.6 g/dl (32-36); Mean Corpuscular Hemoglobin 31.2 pg (26-34); Mean Corpuscular Volume 98.8 fl (80-100); Mean Platelet Volume 10.6 fl (7.4-10.4); Monocytes Absolute Auto 0.9 K/mm3 (0.1-0.6); Monocytes Percent Auto 3.8 % (2.6-8.5); Neutrophils Absolute Auto 20.1 K/mm3 (1.3-6.7); Neutrophils Percent Auto 87.9 % (45.5-73.1); Platelet Count Result 291 k/mm3 (150-375); Red Blood Count 4.13 M/mm3 (4.2-5.4); White Blood Count 22.9 K/mm3 (4.5-10.0)
[2022-03-17 07:02] LABS: Alanine Aminotransferase 33 U/L (6-35); Albumin Level 2.7 g/dL (3.5-5.1); Alkaline Phosphatase 82 U/L (38-126); Anion Gap 0 mmol/L (8-16); Aspartate Amino Transferase 32 U/L (14-36); Bilirubin,Total 0.6 mg/dL (0.2-1.3); Blood Urea Nitrogen 27 mg/dL (7-17); Calcium 7.7 mg/dL (8.4-10.2); Carbon Dioxide 35 mmol/L (22-30); Chloride 100 mmol/L (98-107); Estimated CRCL calculation 52 ml/min; Estimated Glomerular Filt Rate > 60; Glucose 145 mg/dL (65-110); Potassium 4.4 mmol/L (3.4-5.0); Sodium 135 mmol/L (137-145)
[2022-03-17 08:15] LABS: Glucose Point of Care 137 mg/dl (65-105)
[2022-03-17] MEDS: METOPROLOL TARTRATE 25 MG TABLET PO ×2 (08:40→21:44)
[2022-03-17] MEDS: THERAPEUTIC MULTIVITAMINS/MINERALS TAB (*BKC) 1 TABLET PO (08:40)
[2022-03-17] MEDS: APIXABAN 5 MG TABLET PO ×2 (08:41→21:43)
[2022-03-17] MEDS: lisinopriL 5 MG TABLET PO (08:41)
[2022-03-17] MEDS: metFORMIN HCL 500 MG TABLET PO ×2 (08:41→16:55)
[2022-03-17] MEDS: ATORVASTATIN 10 MG TABLET PO (08:41)
[2022-03-17 12:06] LABS: Glucose Point of Care 199 mg/dl (65-105)
--- NOTE | 2022-03-17 12:47 | PM.IMPN ---
Progress Note: A&P Assessment and Plan (1) Pneumonia: Code(s): J18.9 - Pneumonia, unspecified organism Status: Acute Assessment and Plan: follow-up sputum culture collected n pending Currently on imipenem and vancomycin High WBC count could be secondary to use of prednisone as well patient clinically looks lot better WBC counts are saturations been stable pulmonary consult appreciated alpha 1 antitrypsin results awaited (2) Atrial fibrillation with rapid ventricular response: Code(s): I48.91 - Unspecified atrial fibrillation Status: Acute Assessment and Plan: , rate controlled on metoprolol 25 mg twice daily Continue eliquis, consider adding aspirin 81 mg daily per Cardiology recommendations Echo showed an EF of 55-60% CTA negative for PE (3) COPD (chronic obstructive pulmonary disease): Code(s): J44.9 - Chronic obstructive pulmonary disease, unspecified Status: Acute Assessment and Plan: Completed 5 day course high dose steroids Continue nebulizers Continue BiPAP/Airvo, wean oxygen as tolerated Appreciate pulmonology consultation (4) Hyperlipidemia: Code(s): E78.5 - Hyperlipidemia, unspecified Status: Acute Assessment and Plan: Continue Lipitor (5) FIFI (generalized anxiety disorder): Code(s): F41.1 - Generalized anxiety disorder Status: Acute Assessment and Plan: Currently on a small dose of alprazolam. Will continue monitor for any respiratory depression as patient has severe COPD (6) Benign essential HTN: Code(s): I10 - Essential (primary) hypertension Status: Acute Assessment and Plan: Well controlled Continue lisinopril and metoprolol (7) Diabetes mellitus: Code(s): E11.9 - Type 2 diabetes mellitus without complications Status: Acute Assessment and Plan: Restart metformin, continue Accu-Cheks and intensive sliding scale insulin, A1c 8.2 lantus to 20 units nightly (8) Acute respiratory failure with hypoxia: Code(s): J96.01 - Acute respiratory failure with hypoxia Status: Acute (9) Hyponatremia: Code(s): E87.1 - Hypo-osmolality and hyponatremia Status: Acute Assessment and Plan: Current sodium is back to 142 BUN creatinine is normal (10) Hyperkalemia: Code(s): E87.5 - Hyperkalemia Status: Acute Assessment and Plan: Corrected (11) Chronic respiratory failure with hypercapnia: Code(s): J96.12 - Chronic respiratory failure with hypercapnia Status: Acute Assessment and Plan: Multifactorial secondary to COPD exacerbation, viral and/or bacterial pneumonia, moderate pulmonary hypertension and right ventricular heart failure, wean as able Plan DVT prophylaxis. Eliquis GI prophylaxis. Protonix S a, patient is on prednisone and Eliquis All records reviewed Discussed plan of care with the nursing staff and with the patient in detail. Answered all questions and concerns from the patient. All labs have been reviewed. Code status updated dictation may have been done utilizing a voice recognition system. Attempts have been made to correct errors. However, there may be uncorrected grammatical, spelling, and recognition errors present. Code status DNR/DNI Time Spent With Patient Time with patient: 25 - 35 minutes Subjective Date/time seen: 03/17/22 12:47 Interval history: patient is sitting in a year with oxygen still struggling difficulty breathing on bedside Review of Systems Review of Systems: All systems reviewed & are unremarkable except as noted in HPI and below Exam Narrative: GEN: Alert, oriented, not in distress. A little hard of hearing. HEENT: pupils are equal, symmetrical face; oral membranes moist NECK: Trachea is midline CHEST: Equal air entry, symmetric excursion, crackles in both bases, & decreased breath sounds, as well. CV: Sounde
[2022-03-17] MEDS: PANTOPRAZOLE 40 MG TABLET PO (14:37)
[2022-03-17 17:08] LABS: Glucose Point of Care 134 mg/dl (65-105)
--- NOTE | 2022-03-17 17:38 | P.PNPL_ITS ---
Progress Note: A&P Assessment and Plan (1) COPD exacerbation: Code(s): J44.1 - Chronic obstructive pulmonary disease with (acute) exacerbation Status: Acute Assessment and Plan: Patient has a 60 pack year history of tobacco use, quit 2014, carries a diagnosis of COPD. CT scan of the chest on 03/13/2022 shows moderate to severe panlobular emphysema. I have no PFTs. Maintained on Trelegy inhaler. She does not use home oxygen and her baseline dyspnea on exertion is 1/2 a block. She has never had any prior COPD exacerbations. 03/12/2022 Patient presents with COPD exacerbations with 5 days of worsening shortness of breath, increased phlegm production, change in color of her phlegm and hypoxia. Patient was also noted to be in AFib with RVR. patient's influenza, RSV and COVID RT PCR studies were negative. Blood cultures on 03/10 are negative to date. She has COPD and she currently has a COPD exacerbation. Patient is currently on levalbuterol 0.63 mcg Q 6 hours, ipratropium 0.5 mg nebulized q.6 hours, Solu- Medrol 40 mg IV q.8 hours. Discontinue the Trelegy as she is already on maximal beta agonist, muscarinic antagonist and steroids. The patient may have pneumonia; agree with ceftriaxone and azithromycin both of which were started on 03/10. Patient presented with a blood gas of 7.30/47/74 with a serum bicarbonate of 26. She had no hypercarbic respiratory failure on admission. Subsequently in the hospital, she did develop hypercarbic respiratory failure. The patient said that the BiPAP was very uncomfortable and that the Airvo was uncomfortable; switched her to a high-flow nasal cannula at 5 L and her saturations were 98%. Placed the patient on BiPAP and adjusted her mask for comfort and adjusted settings for comfort which resulted in a rate of 14, pressures 12/5, inspiratory time 1.2, rise time of 0.4 and 40%. this resulted in tidal volumes approximately 450. The patient thought that she would be able to tolerate. I will plan on continuing these settings tonight. I will follow the patient clinically without a blood gas in the morning. Since she did not present with hypercarbic respiratory failure or an elevated serum bicarbonate I will not commit her to home noninvasive ventilation at this time. Continue to treat her COPD exacerbation and possible pneumonia and reassess her daytime PaCO2 in the future after she has improved. 03/13 Patient had difficulty wearing her BiPAP last night and was given Xanax. She did tolerate BiPAP on and off but is somewhat lethargic this morning. She was on BiPAP and states that she is a little improved compared to yesterday. Currently she is on BiPAP set rate of 14, breathing 20 6, 12/5 with tidal volume 330 in 40% FiO2 with saturations 97%. Her white blood cell count is 30.9, creatinine is 1.10. Her chest x-ray today shows improved congestion and improved right lower lobe infiltrate. Will order CT angiogram of the chest to assess for pulmonary emboli and to assess her heart anatomy. Patient has no wheezing on exam today and I will decrease her Solu-Medrol from 40 Q 8 to 20 Q 6. I will continue levalbuterol and ipratropium nebulizers Q 6 hours. Continue ceftriaxone and azithromycin, today is day 4. Will continue BiPAP p.r.n. during the day and tonight she should use a BiPAP if she can tolerate it (she is very claustrophobic). I would not sedate the patient so that she can tolerate BiPAP. Goal saturation 90-94%, Wean oxygen as tolerated to achieve this. Later in the day she had a blood gas on 4 L nasal cannula the pH of 7.41/54/65 indicating chronic hypercarbic respiratory failure from her COPD. Patient had a CT angiogram of the chest that was negative for PE, moderate to
[2022-03-17 20:34] LABS: Vancomycin Trough 10.8 ug/mL (10.0-20.0)
[2022-03-17] MEDS: SODIUM CHLORIDE NASAL GEL 14.1 GM 1 APPLIC NASAL (21:44)
[2022-03-18] VITALS (22 sets, daily range): BP systolic 113–158; BP diastolic 50–99; PULSE 55–116; RESP 16–28; TEMP 35.9–36.6; O2SAT 92–99
[2022-03-18] MEDS: LEVALBUTEROL NEB 1.25 MG/3 ML 0.63 MG INHALATION ×4 (02:17→19:39)
[2022-03-18] MEDS: IPRATROPIUM BR 0.02% INH SOLN 0.5 MG/2.5 ML VIAL INHALATION ×4 (02:17→19:38)
[2022-03-18 05:43] LABS: Basophils Absolute Auto 0.1 K/mm3 (0.0-0.1); Basophils Percent Auto 0.4 % (0.2-1.2); Eosinophils Absolute Auto 0.1 K/mm3 (0-0.3); Eosinophils Percent Auto 0.5 % (0-4.4); Hematocrit 38.5 % (37.0-47.0); Hemoglobin 12.2 g/dL (12.0-15.0); Immature Granulocyte Absolute 0.85 K/mm3 (0.00-0.031); Immature Granulocyte Percent A 3.5 % (0-0.5); Lymphocytes Absolute Auto 0.72 K/mm3 (0.9-3.2); Mean Corpuscular HGB Conc 31.7 g/dl (32-36); Mean Corpuscular Hemoglobin 30.1 pg (26-34); Mean Corpuscular Volume 95.1 fl (80-100); Mean Platelet Volume 10.7 fl (7.4-10.4); Monocytes Absolute Auto 0.7 K/mm3 (0.1-0.6); Neutrophils Absolute Auto 21.8 K/mm3 (1.3-6.7); Neutrophils Percent Auto 89.6 % (45.5-73.1); Platelet Count Result 263 k/mm3 (150-375); Red Blood Count 4.05 M/mm3 (4.2-5.4); Red Cell Distribution Width 13.8 % (11.5-14.5); White Blood Count 24.4 K/mm3 (4.5-10.0)
[2022-03-18 05:59] LABS: Alanine Aminotransferase 38 U/L (6-35); Albumin Level 2.7 g/dL (3.5-5.1); Alkaline Phosphatase 78 U/L (38-126); Anion Gap 1 mmol/L (8-16); Aspartate Amino Transferase 46 U/L (14-36); Bilirubin,Total 0.8 mg/dL (0.2-1.3); Blood Urea Nitrogen 23 mg/dL (7-17); Calcium 7.8 mg/dL (8.4-10.2); Carbon Dioxide 33 mmol/L (22-30); Chloride 103 mmol/L (98-107); Estimated CRCL calculation 52 ml/min; Estimated Glomerular Filt Rate > 60; Glucose 77 mg/dL (65-110); Potassium 4.6 mmol/L (3.4-5.0); Sodium 137 mmol/L (137-145)
--- NOTE | 2022-03-18 08:50 | PCOTNOTE ---
Per RN, patient not appropriate this AM for OT, put back on bipap. Will continue plan of care for OT.
[2022-03-18 08:52] LABS: Glucose Point of Care 102 mg/dl (65-105)
[2022-03-18 08:56] LABS: Alveolar/Arterial O2 Gradient 103.1 mmHg; Base Excess ABG 6.2 mEq/l (+/-2.0); Fractional Inspired Oxygen 32 %; HCO3 ABG 31.7 mEq/l (22.0-26.0); Oxygen Content ABG 17.9 %vol (16.0-22.0); Oxygen Saturation ABG 93.8 % (95.0-100.0); PCO2 ABG 48.9 mmHg (35.0-45.0); PO2 ABG 67.8 mmHg (80.0-100.0); PO2 FiO2 Ratio Arterial Blood 2.12 %; Total Hemoglobin 13.8 g/dL (12.0-18.0); pH ABG 7.429 (7.350-7.450)
[2022-03-18 08:57] LABS: Device NON-INVASIVE VENT; Modified Allen's Test Pass; Site Drawn RIGHT RADIAL
[2022-03-18 08:58] LABS: Non-Invasive Expiratory Pressure 5 CMH2O; Non-Invasive Vent Rate 20 /MIN
[2022-03-18] MEDS: ATORVASTATIN 10 MG TABLET PO (09:17)
[2022-03-18] MEDS: APIXABAN 5 MG TABLET PO ×2 (09:17→20:10)
[2022-03-18] MEDS: METOPROLOL TARTRATE 25 MG TABLET PO (09:17)
[2022-03-18] MEDS: lisinopriL 5 MG TABLET PO (09:17)
[2022-03-18] MEDS: THERAPEUTIC MULTIVITAMINS/MINERALS TAB (*BKC) 1 TABLET PO (09:18)
--- NOTE | 2022-03-18 10:30 | PCPTNOTE ---
The patient treatment was not able to be completed today due to patient being placed back on BIPAP due to SOB. Will plan to continue treatment per plan of care.
[2022-03-18] MEDS: MORPHINE SULFATE (*CRX) 2 MG/ML INJ 0.5 MG IV PUSH (10:39)
--- NOTE | 2022-03-18 11:27 | PC.NURSE ---
Patient called around 0750 to be taken off her night time BIPAP. Patient was then placed on her 4L O2. Patient complained of SOB and was having labored breathing. Respiratory was called to give am treatments. Doctor also came in to see patient and gave new orders and instructed us to place patient back on BIPAP. Patient stayed on BIPAP for maybe 30 min before taking mask off. Patient since then has been placed on BIPAP and then removed several times. Patient was told she would benefit from keeping BIPAP on. Patient currently on 4L o2 and states she is resting fine.
--- NOTE | 2022-03-18 11:45 | PM.IMPN ---
Progress Note: A&P Assessment and Plan (1) Pneumonia: Code(s): J18.9 - Pneumonia, unspecified organism Status: Acute Assessment and Plan: follow-up sputum culture collected n pending Currently on imipenem and vancomycin High WBC count could be secondary to use of prednisone as well patient clinically looks lot worse today ABGs were drawn patient was refusing BiPAP in the morning patient's repeat chest x-ray shows as below Stable airspace opacities in right mid and lower lung zones and left lower lung zone, consistent with pneumonia. 2. Nodule in left lung lower lobe suspicious for primary bronchogenic carcinoma. Noncontrast low-dose chest CT is recommended in 3 months. (2) Atrial fibrillation with rapid ventricular response: Code(s): I48.91 - Unspecified atrial fibrillation Status: Acute Assessment and Plan: rate controlled on metoprolol 25 mg twice daily Continue eliquis, consider adding aspirin 81 mg daily per Cardiology recommendations Echo showed an EF of 55-60% CTA negative for PE (3) COPD (chronic obstructive pulmonary disease): Code(s): J44.9 - Chronic obstructive pulmonary disease, unspecified Status: Acute Assessment and Plan: Completed 5 day course high dose steroids Continue nebulizers Continue BiPAP/Airvo, oxygen as tolerated Appreciate pulmonology consultation (4) FIFI (generalized anxiety disorder): Code(s): F41.1 - Generalized anxiety disorder Status: Acute Assessment and Plan: Currently on a small dose of alprazolam. Will continue monitor for any respiratory depression as patient has severe COPD (5) Benign essential HTN: Code(s): I10 - Essential (primary) hypertension Status: Acute Assessment and Plan: Well controlled Continue lisinopril and metoprolol (6) Diabetes mellitus: Code(s): E11.9 - Type 2 diabetes mellitus without complications Status: Acute Assessment and Plan: Restart metformin, continue Accu-Cheks and intensive sliding scale insulin, A1c 8.2 lantus to 20 units nightly (7) Acute respiratory failure with hypoxia: Code(s): J96.01 - Acute respiratory failure with hypoxia Status: Acute Assessment and Plan: acute respiratory failure with hypoxemia prognosis is poor patient currently on antibiotics already worsening chest x-ray noted (8) Hyponatremia: Code(s): E87.1 - Hypo-osmolality and hyponatremia Status: Acute Assessment and Plan: Current sodium is back to 142 BUN creatinine is normal (9) Hyperkalemia: Code(s): E87.5 - Hyperkalemia Status: Acute Assessment and Plan: Corrected (10) Chronic respiratory failure with hypercapnia: Code(s): J96.12 - Chronic respiratory failure with hypercapnia Status: Acute Assessment and Plan: Multifactorial secondary to COPD exacerbation, viral and/or bacterial pneumonia, moderate pulmonary hypertension and right ventricular heart failure, wean as able Plan DVT prophylaxis. Eliquis GI prophylaxis. Protonix S a, patient is on prednisone and Eliquis All records reviewed Discussed plan of care with the nursing staff and with the patient in detail. Answered all questions and concerns from the patient. All labs have been reviewed. Code status updated dictation may have been done utilizing a voice recognition system. Attempts have been made to correct errors. However, there may be uncorrected grammatical, spelling, and recognition errors present. Code status DNR/DNI Time Spent With Patient Time with patient: 25 - 35 minutes Subjective Date/time seen: 03/18/22 11:45 Interval history: patient seen today very short of breath using accessory muscles. Very anxious refusing BiPAP patient is DNR Review of Systems Review of Systems: All systems reviewed & are unremarkable except as noted in HPI and below Exam Const: General:
[2022-03-18 12:20] LABS: Glucose Point of Care 155 mg/dl (65-105)
[2022-03-18] MEDS: metFORMIN HCL 500 MG TABLET PO (16:42)
[2022-03-18 16:56] LABS: Glucose Point of Care 135 mg/dl (65-105)
[2022-03-18] MEDS: SODIUM CHLORIDE NASAL GEL 14.1 GM 1 APPLIC NASAL (20:10)
[2022-03-18 20:56] LABS: Glucose Point of Care 132 mg/dl (65-105)
[2022-03-19] VITALS (29 sets, daily range): BP systolic 119–147; BP diastolic 43–74; PULSE 66–120; RESP 16–24; TEMP 35.7–36.6; O2SAT 86–100
[2022-03-19] MEDS: METOPROLOL TARTRATE 25 MG TABLET PO ×3 (01:23→20:40)
[2022-03-19] MEDS: LEVALBUTEROL NEB 1.25 MG/3 ML 0.63 MG INHALATION ×2 (01:26→07:53)
[2022-03-19] MEDS: IPRATROPIUM BR 0.02% INH SOLN 0.5 MG/2.5 ML VIAL INHALATION ×5 (01:27→21:32)
[2022-03-19 06:58] LABS: Basophils Absolute Auto 0.1 K/mm3 (0.0-0.1); Basophils Percent Auto 0.3 % (0.2-1.2); Eosinophils Absolute Auto 0.1 K/mm3 (0-0.3); Eosinophils Percent Auto 0.2 % (0-4.4); Hematocrit 37.2 % (37.0-47.0); Hemoglobin 11.8 g/dL (12.0-15.0); Immature Granulocyte Absolute 0.52 K/mm3 (0.00-0.031); Immature Granulocyte Percent A 2.3 % (0-0.5); Lymphocytes Absolute Auto 0.48 K/mm3 (0.9-3.2); Lymphocytes Percent Auto 2.1 % (18.3-44.2); Mean Corpuscular HGB Conc 31.7 g/dl (32-36); Mean Corpuscular Hemoglobin 30.2 pg (26-34); Mean Corpuscular Volume 95.1 fl (80-100); Mean Platelet Volume 10.1 fl (7.4-10.4); Monocytes Absolute Auto 0.7 K/mm3 (0.1-0.6); Monocytes Percent Auto 3.2 % (2.6-8.5); Neutrophils Absolute Auto 20.8 K/mm3 (1.3-6.7); Neutrophils Percent Auto 91.9 % (45.5-73.1); Platelet Count Result 264 k/mm3 (150-375); Red Blood Count 3.91 M/mm3 (4.2-5.4); Red Cell Distribution Width 14.2 % (11.5-14.5); White Blood Count 22.7 K/mm3 (4.5-10.0)
[2022-03-19 07:07] LABS: Alanine Aminotransferase 31 U/L (6-35); Albumin Level 2.6 g/dL (3.5-5.1); Alkaline Phosphatase 76 U/L (38-126); Anion Gap 1 mmol/L (8-16); Aspartate Amino Transferase 31 U/L (14-36); Bilirubin,Total 0.5 mg/dL (0.2-1.3); Blood Urea Nitrogen 20 mg/dL (7-17); Calcium 7.8 mg/dL (8.4-10.2); Carbon Dioxide 33 mmol/L (22-30); Chloride 99 mmol/L (98-107); Estimated CRCL calculation 52 ml/min; Estimated Glomerular Filt Rate > 60; Glucose 100 mg/dL (65-110); Sodium 133 mmol/L (137-145)
[2022-03-19 07:11] LABS: Vancomycin Trough 17.7 ug/mL (10.0-20.0)
--- NOTE | 2022-03-19 08:20 | PM.PNPUL ---
Progress Note: A&P Assessment and Plan (1) COPD exacerbation: Code(s): J44.1 - Chronic obstructive pulmonary disease with (acute) exacerbation Status: Acute Assessment and Plan: Patient has a 60 pack year history of tobacco use, quit 2014, carries a diagnosis of COPD. CT scan of the chest on 03/13/2022 shows moderate to severe panlobular emphysema. I have no PFTs. Maintained on Trelegy inhaler. She does not use home oxygen and her baseline dyspnea on exertion is 1/2 a block. She has never had any prior COPD exacerbations. 03/12/2022 Patient presents with COPD exacerbations with 5 days of worsening shortness of breath, increased phlegm production, change in color of her phlegm and hypoxia. Patient was also noted to be in AFib with RVR. patient's influenza, RSV and COVID RT PCR studies were negative. Blood cultures on 03/10 are negative to date. She has COPD and she currently has a COPD exacerbation. Patient is currently on levalbuterol 0.63 mcg Q 6 hours, ipratropium 0.5 mg nebulized q.6 hours, Solu-Medrol 40 mg IV q.8 hours. Discontinue the Trelegy as she is already on maximal beta agonist, muscarinic antagonist and steroids. The patient may have pneumonia; agree with ceftriaxone and azithromycin both of which were started on 03/10. Patient presented with a blood gas of 7.30/47/74 with a serum bicarbonate of 26. She had no hypercarbic respiratory failure on admission. Subsequently in the hospital, she did develop hypercarbic respiratory failure. The patient said that the BiPAP was very uncomfortable and that the Airvo was uncomfortable; switched her to a high-flow nasal cannula at 5 L and her saturations were 98%. Placed the patient on BiPAP and adjusted her mask for comfort and adjusted settings for comfort which resulted in a rate of 14, pressures 12/5, inspiratory time 1.2, rise time of 0.4 and 40%. this resulted in tidal volumes approximately 450. The patient thought that she would be able to tolerate. I will plan on continuing these settings tonight. I will follow the patient clinically without a blood gas in the morning. Since she did not present with hypercarbic respiratory failure or an elevated serum bicarbonate I will not commit her to home noninvasive ventilation at this time. Continue to treat her COPD exacerbation and possible pneumonia and reassess her daytime PaCO2 in the future after she has improved. 03/13 Patient had difficulty wearing her BiPAP last night and was given Xanax. She did tolerate BiPAP on and off but is somewhat lethargic this morning. She was on BiPAP and states that she is a little improved compared to yesterday. Currently she is on BiPAP set rate of 14, breathing 20 6, 12/5 with tidal volume 330 in 40% FiO2 with saturations 97%. Her white blood cell count is 30.9, creatinine is 1.10. Her chest x-ray today shows improved congestion and improved right lower lobe infiltrate. Will order CT angiogram of the chest to assess for pulmonary emboli and to assess her heart anatomy. Patient has no wheezing on exam today and I will decrease her Solu-Medrol from 40 Q 8 to 20 Q 6. I will continue levalbuterol and ipratropium nebulizers Q 6 hours. Continue ceftriaxone and azithromycin, today is day 4. Will continue BiPAP p.r.n. during the day and tonight she should use a BiPAP if she can tolerate it (she is very claustrophobic). I would not sedate the patient so that she can tolerate BiPAP. Goal saturation 90-94%, Wean oxygen as tolerated to achieve this. Later in the day she had a blood gas on 4 L nasal cannula the pH of 7.41/54/65 indicating chronic hypercarbic respiratory failure from her COPD. Patient would benefit from noninvasive ventilation to prevent deterioration and future hospitalizations. The patient could not tolerate BiPAP but does tolerate a noninvasive ventilator with the AVAPS mode. Patient had a CT angiogram of the chest that was negative for PE, moderate to severe panlo
[2022-03-19] MEDS: metFORMIN HCL 500 MG TABLET PO ×2 (08:38→17:23)
[2022-03-19] MEDS: THERAPEUTIC MULTIVITAMINS/MINERALS TAB (*BKC) 1 TABLET PO (08:39)
[2022-03-19] MEDS: lisinopriL 5 MG TABLET PO (08:39)
[2022-03-19] MEDS: APIXABAN 5 MG TABLET PO ×2 (08:39→20:41)
[2022-03-19] MEDS: ATORVASTATIN 10 MG TABLET PO (08:40)
[2022-03-19 09:23] LABS: Glucose Point of Care 126 mg/dl (65-105)
--- NOTE | 2022-03-19 09:42 | PM.IMPN ---
Progress Note: A&P Assessment and Plan (1) Pneumonia: Code(s): J18.9 - Pneumonia, unspecified organism Status: Acute Assessment and Plan: follow-up sputum culture collected n pending Currently on imipenem and vancomycin High WBC count could be secondary to use of prednisone as well patient clinically looks much better today today on BiPAP Stable airspace opacities in right mid and lower lung zones and left lower lung zone, consistent with pneumonia. 2. Nodule in left lung lower lobe suspicious for primary bronchogenic carcinoma. Noncontrast low-dose chest CT is recommended in 3 months. (2) Atrial fibrillation with rapid ventricular response: Code(s): I48.91 - Unspecified atrial fibrillation Status: Acute Assessment and Plan: rate controlled on metoprolol 25 mg twice daily Continue eliquis, consider adding aspirin 81 mg daily per Cardiology recommendations Echo showed an EF of 55-60% CTA negative for PE (3) COPD (chronic obstructive pulmonary disease): Code(s): J44.9 - Chronic obstructive pulmonary disease, unspecified Status: Acute Assessment and Plan: Continue BiPAP/Airvo, oxygen as tolerated Appreciate pulmonology consultation (4) FIFI (generalized anxiety disorder): Code(s): F41.1 - Generalized anxiety disorder Status: Acute Assessment and Plan: Currently on a small dose of alprazolam. Will continue monitor for any respiratory depression as patient has severe COPD (5) Benign essential HTN: Code(s): I10 - Essential (primary) hypertension Status: Acute Assessment and Plan: Well controlled Continue lisinopril and metoprolol (6) Diabetes mellitus: Code(s): E11.9 - Type 2 diabetes mellitus without complications Status: Acute Assessment and Plan: Restart metformin, continue Accu-Cheks and intensive sliding scale insulin, A1c 8.2 lantus to 20 units nightly (7) Acute respiratory failure with hypoxia: Code(s): J96.01 - Acute respiratory failure with hypoxia Status: Acute Assessment and Plan: acute respiratory failure with hypoxemia prognosis is poor patient currently on antibiotics already (8) Hyponatremia: Code(s): E87.1 - Hypo-osmolality and hyponatremia Status: Acute Assessment and Plan: Current sodium is back to 142 BUN creatinine is normal (9) Hyperkalemia: Code(s): E87.5 - Hyperkalemia Status: Acute Assessment and Plan: Corrected (10) Chronic respiratory failure with hypercapnia: Code(s): J96.12 - Chronic respiratory failure with hypercapnia Status: Acute Assessment and Plan: Multifactorial secondary to COPD exacerbation, viral and/or bacterial pneumonia, moderate pulmonary hypertension and right ventricular heart failure, wean as able Plan DVT prophylaxis. Eliquis GI prophylaxis. Protonix S a, patient is on prednisone and Eliquis All records reviewed Discussed plan of care with the nursing staff and with the patient in detail. Answered all questions and concerns from the patient. All labs have been reviewed. Code status updated dictation may have been done utilizing a voice recognition system. Attempts have been made to correct errors. However, there may be uncorrected grammatical, spelling, and recognition errors present. Code status DNR/DNI Time Spent With Patient Time with patient: 25 - 35 minutes Subjective Date/time seen: 03/19/22 09:42 Interval history: patient comfortable today in bed breathing better on BiPAP overnight Review of Systems Review of Systems: All systems reviewed & are unremarkable except as noted in HPI and below Exam Const: General: cooperative and comfortable HENMT: Head: normal to inspection Ears: hearing grossly normal bilaterally Eyes: General: appearance normal, both eyes and all related structures Neck: Neck: normal visua
[2022-03-19 11:01] LABS: Alpha-1-Antitrypsin, QN 229 mg/dL (83-199)
--- NOTE | 2022-03-19 11:34 | PC.NURSE ---
Family of patient reports pt tested positive for COVID this AM, has been visiting all week. Medical Massage Therapist notified provider and received orders to complete COVID PCR on pt
[2022-03-19 12:10] LABS: Glucose Point of Care 175 mg/dl (65-105)
[2022-03-19 13:03] LABS: SARS-CoV-2 RNA PCR Positive
[2022-03-19] MEDS: ALBUTEROL SULFATE NEB 2.5 MG/3 ML INH INHALATION ×3 (13:41→21:32)
[2022-03-19 17:14] LABS: Glucose Point of Care 156 mg/dl (65-105)
--- NOTE | 2022-03-19 17:40 | PC.NURSE ---
Pt spo2 maintainted throughout this Am/afternoon with 2LNC SPO2 90-93%, pt worked with therapy SPO2 decreased to 86% pt was able to recover with rest. This evening pt up to chair eating dinner and SPo2 86% with 2L, 88% with 3LNC, and 91% with 4LNC.
[2022-03-19] MEDS: INSULIN GLARGINE (*BKC) 100 UNITS/ML 20 UNITS SUB-Q (20:38)
[2022-03-19] MEDS: SODIUM CHLORIDE NASAL GEL 14.1 GM 1 APPLIC NASAL (20:52)
[2022-03-19 21:24] LABS: Glucose Point of Care 200 mg/dl (65-105)
[2022-03-20] VITALS (17 sets, daily range): BP systolic 101–143; BP diastolic 44–91; PULSE 72–119; RESP 18–24; TEMP 36.2–37.2; O2SAT 93–100
--- NOTE | 2022-03-20 02:20 | PCRCNOTE ---
patient refused use of NIV and the oximetry study after stating that her nose was stuffy and very sore.
[2022-03-20 06:08] LABS: Basophils Absolute Auto 0.1 K/mm3 (0.0-0.1); Basophils Percent Auto 0.3 % (0.2-1.2); Eosinophils Absolute Auto 0.1 K/mm3 (0-0.3); Eosinophils Percent Auto 0.7 % (0-4.4); Hematocrit 36.4 % (37.0-47.0); Hemoglobin 11.4 g/dL (12.0-15.0); Immature Granulocyte Percent A 2.2 % (0-0.5); Lymphocytes Absolute Auto 0.58 K/mm3 (0.9-3.2); Lymphocytes Percent Auto 3.2 % (18.3-44.2); Mean Corpuscular HGB Conc 31.3 g/dl (32-36); Mean Corpuscular Hemoglobin 30.3 pg (26-34); Mean Corpuscular Volume 96.8 fl (80-100); Mean Platelet Volume 10.2 fl (7.4-10.4); Monocytes Absolute Auto 0.8 K/mm3 (0.1-0.6); Monocytes Percent Auto 4.3 % (2.6-8.5); Neutrophils Absolute Auto 16.1 K/mm3 (1.3-6.7); Neutrophils Percent Auto 89.3 % (45.5-73.1); Platelet Count Result 286 k/mm3 (150-375); Red Blood Count 3.76 M/mm3 (4.2-5.4); Red Cell Distribution Width 13.9 % (11.5-14.5)
[2022-03-20 06:18] LABS: Alanine Aminotransferase 30 U/L (6-35); Albumin Level 2.6 g/dL (3.5-5.1); Alkaline Phosphatase 89 U/L (38-126); Anion Gap -1 mmol/L (8-16); Aspartate Amino Transferase 33 U/L (14-36); Bilirubin,Total 0.4 mg/dL (0.2-1.3); Blood Urea Nitrogen 16 mg/dL (7-17); Calcium 7.7 mg/dL (8.4-10.2); Carbon Dioxide 36 mmol/L (22-30); Chloride 103 mmol/L (98-107); Estimated CRCL calculation 52 ml/min; Estimated Glomerular Filt Rate > 60; Glucose 76 mg/dL (65-110); Potassium 3.8 mmol/L (3.4-5.0); Sodium 138 mmol/L (137-145)
[2022-03-20] MEDS: metFORMIN HCL 500 MG TABLET PO ×2 (08:09→18:22)
[2022-03-20] MEDS: METOPROLOL TARTRATE 25 MG TABLET PO ×2 (08:09→20:19)
[2022-03-20] MEDS: lisinopriL 5 MG TABLET PO (08:09)
[2022-03-20] MEDS: ATORVASTATIN 10 MG TABLET PO (08:09)
[2022-03-20] MEDS: THERAPEUTIC MULTIVITAMINS/MINERALS TAB (*BKC) 1 TABLET PO (08:09)
[2022-03-20] MEDS: APIXABAN 5 MG TABLET PO ×2 (08:09→20:19)
[2022-03-20 08:47] LABS: Glucose Point of Care 83 mg/dl (65-105)
[2022-03-20] MEDS: ALBUTEROL SULFATE NEB 2.5 MG/3 ML INH INHALATION ×3 (09:04→19:29)
[2022-03-20] MEDS: IPRATROPIUM BR 0.02% INH SOLN 0.5 MG/2.5 ML VIAL INHALATION ×3 (09:04→19:29)
[2022-03-20 09:48] LABS: Alanine Aminotransferase 30 U/L (6-35); Estimated CRCL calculation 52 ml/min; Estimated Glomerular Filt Rate > 60; INR 1.6; Prothrombin Time 18.5 Seconds (11.1-14.7)
[2022-03-20] MEDS: REMDESIVIR 200 MG/NS 250 ML 200 MG/250 ML BAG 250 MG IVPB (10:12)
--- NOTE | 2022-03-20 11:20 | PCNFU ---
Nutrition Follow-Up Complete: Inadequate oral intake related to fatigue, loss of appetite as evidenced by vmware systems administrator, 50% intakes goal: Adequate PO intake at least 75% meals Patient is progressing towards goal. We will continue current goal Pt current nutrition is Heart Healthy Last recorded weight is 67.9 kg. Bowel Motility:+BM reported 03/19 Labs Reviewed:Cr 0.6,Alb 2.6 Meds Noted: Lovenox, Glucophage, Lantus, Rocephin MVI, Lopressor,Vancomycin. Skin: WNL Additional Notes: Patient remains on heart healthy diet. Oral Intake-fair. Refused breakfast today. Diet supplements remain on trays of Glucerna shakes providing an additional 220 kcals and 10 gms protein. Agree with diet orders. Monitoring intakes, weights, labs, plan of care, supplement tolerance. Follow up in 7 days
--- NOTE | 2022-03-20 11:27 | PCOTNOTE ---
Attempted to see patient this am, however patient declined stating, Not right now. I'd like to get some rest.
[2022-03-20 12:38] LABS: Glucose Point of Care 98 mg/dl (65-105)
--- NOTE | 2022-03-20 13:02 | PCOTNOTE ---
Attempted to see patient this pm, however patient declined stating, I haven't had a chance to rest yet. I got up in the chair to eat, and I feel better, but I need to rest now.
--- NOTE | 2022-03-20 13:55 | PM.IMPN ---
Progress Note: A&P Assessment and Plan (1) Pneumonia: Code(s): J18.9 - Pneumonia, unspecified organism Status: Acute Assessment and Plan: Initially treated with cefepime and azithromycin. Leukocytosis worsened and patient without improvement. Imipenem and vancomycin started 03/15/22. COVID19 positive 03/19/22. Appears clinically stable at this time. -Planned for CT Chest today -Appreciate recommendations from Pulmonology -Continue imipenem and vancomycin -Start remdesivir and dexamethasone today (2) Atrial fibrillation with rapid ventricular response: Code(s): I48.91 - Unspecified atrial fibrillation Status: Acute Assessment and Plan: Echo showed an EF of 55-60% . CTA negative for PE. Rate controlled on metoprolol 25 mg twice daily. Apixaban for stroke prophylaxis. -Continue metoprolol -Continue apixaban (3) COPD (chronic obstructive pulmonary disease): Code(s): J44.9 - Chronic obstructive pulmonary disease, unspecified Status: Acute Assessment and Plan: Continue BiPAP/Airvo and oxygen as tolerated. -Appreciate pulmonology recommendations (4) FIFI (generalized anxiety disorder): Code(s): F41.1 - Generalized anxiety disorder Status: Acute Assessment and Plan: Patient has not taken alprazolam since 03/13. Discontinue. Will monitor. (5) Benign essential HTN: Code(s): I10 - Essential (primary) hypertension Status: Acute Assessment and Plan: Controlled. Continue lisinopril and metoprolol. (6) Diabetes mellitus: Code(s): E11.9 - Type 2 diabetes mellitus without complications Status: Acute Assessment and Plan: A1c 8.2. -metformin, -Continue Accu-Cheks and intensive sliding scale insulin, -Glargine 20 units nightly (7) Acute respiratory failure with hypoxia: Code(s): J96.01 - Acute respiratory failure with hypoxia Status: Acute Assessment and Plan: Multifactorial - pneumonia, COVID19 and COPD. Continues to require oxygen for adequate oxygen saturation. Will likely need to be discharged to home with oxygen. (8) Hyponatremia: Code(s): E87.1 - Hypo-osmolality and hyponatremia Status: Acute Assessment and Plan: Current sodium is back to 142 BUN creatinine is normal (9) Hyperkalemia: Code(s): E87.5 - Hyperkalemia Status: Acute Assessment and Plan: Corrected (10) Chronic respiratory failure with hypercapnia: Code(s): J96.12 - Chronic respiratory failure with hypercapnia Status: Acute Assessment and Plan: Multifactorial secondary to COPD exacerbation, viral and/or bacterial pneumonia, moderate pulmonary hypertension and right ventricular heart failure, wean as able (11) Lung nodule: Code(s): R91.1 - Solitary pulmonary nodule Status: Acute Assessment and Plan: CT chest shows nodule in left lung lower lobe suspicious for primary bronchogenic carcinoma. Noncontrast low-dose chest CT is recommended in 3 months. Plan Anticoagulated Code status DNR/DNI Subjective Date/time seen: 03/20/22 13:55 Patient says she feels better and has enjoyed sitting in the chair today. She believe it helps her breathing. Denies worsening difficulty breathing. Says she feels the oxygen helps her. She says she would like to get back in the bed so that she can sleep now to be awake for the episode of survivor coming on tonight on [employer]. Patient discussed with Dr. Angelo this morning. Patient discussed with ID pharmacist. Patient discussed with infection control nurse. Review of Systems Respiratory: Respiratory: Reports dyspnea Exam Narrative: GENERAL: NAD, cooperative HEENT: Normocephalic, atraumatic, anicteric, nares clear, oropharynx moist and clear, dentures NECK: Supple CV: Normal S1, S2, RRR, No MRG RESP: No wheezes, rhonchi or rales. Wearing oxygen. EXTR
[2022-03-20 17:13] LABS: Glucose Point of Care 138 mg/dl (65-105)
[2022-03-20] MEDS: INSULIN GLARGINE (*BKC) 100 UNITS/ML 20 UNITS SUB-Q (20:22)
[2022-03-20 21:04] LABS: Glucose Point of Care 209 mg/dl (65-105)
[2022-03-20] MEDS: SODIUM CHLORIDE NASAL GEL 14.1 GM 1 APPLIC NASAL (21:35)
[2022-03-21] VITALS (15 sets, daily range): BP systolic 116–154; BP diastolic 53–74; PULSE 72–87; RESP 17–20; TEMP 36.3–37; O2SAT 93–100
[2022-03-21 05:48] LABS: Basophils Absolute Auto 0.1 K/mm3 (0.0-0.1); Basophils Percent Auto 0.4 % (0.2-1.2); Eosinophils Percent Auto 0.2 % (0-4.4); Hemoglobin 11.5 g/dL (12.0-15.0); Immature Granulocyte Absolute 0.21 K/mm3 (0.00-0.031); Immature Granulocyte Percent A 1.6 % (0-0.5); Lymphocytes Absolute Auto 0.86 K/mm3 (0.9-3.2); Lymphocytes Percent Auto 6.5 % (18.3-44.2); Mean Corpuscular HGB Conc 31.1 g/dl (32-36); Mean Corpuscular Hemoglobin 30.7 pg (26-34); Mean Corpuscular Volume 98.7 fl (80-100); Mean Platelet Volume 10.4 fl (7.4-10.4); Monocytes Absolute Auto 0.8 K/mm3 (0.1-0.6); Monocytes Percent Auto 6.3 % (2.6-8.5); Neutrophils Absolute Auto 11.2 K/mm3 (1.3-6.7); Platelet Count Result 345 k/mm3 (150-375); Red Blood Count 3.75 M/mm3 (4.2-5.4); White Blood Count 13.2 K/mm3 (4.5-10.0)
[2022-03-21 05:55] LABS: INR 1.6; Prothrombin Time 18.7 Seconds (11.1-14.7)
[2022-03-21 06:38] LABS: Alanine Aminotransferase 33 U/L (6-35); Albumin Level 2.5 g/dL (3.5-5.1); Alkaline Phosphatase 95 U/L (38-126); Anion Gap 1 mmol/L (8-16); Aspartate Amino Transferase 43 U/L (14-36); Bilirubin,Total 0.4 mg/dL (0.2-1.3); Blood Urea Nitrogen 19 mg/dL (7-17); Calcium 7.7 mg/dL (8.4-10.2); Carbon Dioxide 37 mmol/L (22-30); Chloride 102 mmol/L (98-107); Estimated CRCL calculation 52 ml/min; Estimated Glomerular Filt Rate > 60; Glucose 57 mg/dL (65-110); Potassium 3.9 mmol/L (3.4-5.0); Sodium 140 mmol/L (137-145)
--- NOTE | 2022-03-21 06:45 | PC.NURSE ---
ACCUCHECK 68, PT REQUESTING APPLE JUICE. WILL RECHECK
[2022-03-21 07:25] LABS: Glucose Point of Care 111 mg/dl (65-105)
--- NOTE | 2022-03-21 07:30 | PM.IMPN ---
Progress Note: A&P Assessment and Plan (1) Pneumonia: Code(s): J18.9 - Pneumonia, unspecified organism Status: Acute Assessment and Plan: Initially treated with cefepime and azithromycin. Leukocytosis worsened and patient without improvement. Imipenem and vancomycin started 03/15/22. COVID19 positive 03/19/22. Appears clinically stable at this time. -Planned for CT Chest today -Appreciate recommendations from Pulmonology -Continue imipenem and vancomycin per Pulmonology recommendations -Remdesivir #2 and dexamethasone / (2) Atrial fibrillation with rapid ventricular response: Code(s): I48.91 - Unspecified atrial fibrillation Status: Acute Assessment and Plan: Echo showed an EF of 55-60% . CTA negative for PE. Rate controlled on metoprolol 25 mg twice daily. Apixaban for stroke prophylaxis. -Continue metoprolol -Continue apixaban (3) COPD (chronic obstructive pulmonary disease): Code(s): J44.9 - Chronic obstructive pulmonary disease, unspecified Status: Acute Assessment and Plan: Continue BiPAP/Airvo and oxygen as tolerated. -Appreciate pulmonology recommendations (4) FIFI (generalized anxiety disorder): Code(s): F41.1 - Generalized anxiety disorder Status: Acute Assessment and Plan: Stable off alprazolam. (5) Benign essential HTN: Code(s): I10 - Essential (primary) hypertension Status: Acute Assessment and Plan: Controlled. Continue lisinopril and metoprolol. (6) Diabetes mellitus: Code(s): E11.9 - Type 2 diabetes mellitus without complications Status: Acute Assessment and Plan: A1c 8.2. -metformin, -Continue Accu-Cheks and intensive sliding scale insulin, -Glargine 20 units nightly (7) Acute respiratory failure with hypoxia: Code(s): J96.01 - Acute respiratory failure with hypoxia Status: Acute Assessment and Plan: Multifactorial - pneumonia, COVID19 and COPD. Continues to require oxygen for adequate oxygen saturation. Will likely need to be discharged to home with oxygen. (8) Hyponatremia: Code(s): E87.1 - Hypo-osmolality and hyponatremia Status: Acute Assessment and Plan: Resolved. (9) Hyperkalemia: Code(s): E87.5 - Hyperkalemia Status: Acute Assessment and Plan: Corrected (10) Chronic respiratory failure with hypercapnia: Code(s): J96.12 - Chronic respiratory failure with hypercapnia Status: Acute Assessment and Plan: Multifactorial secondary to COPD exacerbation, viral and/or bacterial pneumonia, moderate pulmonary hypertension and right ventricular heart failure, wean as able (11) Lung nodule: Code(s): R91.1 - Solitary pulmonary nodule Status: Acute Assessment and Plan: CT chest shows nodule in left lung lower lobe suspicious for primary bronchogenic carcinoma. Noncontrast low-dose chest CT is recommended in 3 months. Plan Anticoagulated Code status DNR/DNI Subjective Date/time seen: 03/21/22 07:30 Patient says she feels much better today, especially when sitting in the chair. Was upset about having an episode of fecal incontinence while waiting for help to the bathroom. She does still have shortness of breath. Review of Systems Respiratory: Respiratory: Reports dyspnea Exam Narrative: GENERAL: NAD, cooperative HEENT: Normocephalic, atraumatic, anicteric, nares clear, oropharynx moist and clear, dentures NECK: Supple CV:regular rate RESP: No wheezes, rhonchi or rales. Wearing oxygen. EXTREMITIES: Warm and well perfused, no clubbing, cyanosis, or edema. SKIN: warm, dry and intact. NEURO: Objective Data Vital Signs Vital Signs: Vital Signs - 24 hr 03/20/22 08:09 03/20/22 09:04 03/20/22 09:04 Temperature Pulse Rate 75 73 73 Respiratory Rate 22 H 22 H Blood Pressure Pulse Oximetry
[2022-03-21] MEDS: THERAPEUTIC MULTIVITAMINS/MINERALS TAB (*BKC) 1 TABLET PO (08:29)
[2022-03-21] MEDS: metFORMIN HCL 500 MG TABLET PO ×2 (08:29→17:33)
[2022-03-21] MEDS: lisinopriL 5 MG TABLET PO (08:30)
[2022-03-21] MEDS: ATORVASTATIN 10 MG TABLET PO (08:30)
[2022-03-21] MEDS: METOPROLOL TARTRATE 25 MG TABLET PO ×2 (08:30→20:23)
[2022-03-21] MEDS: APIXABAN 5 MG TABLET PO ×2 (08:31→20:23)
[2022-03-21 09:00] LABS: Glucose Point of Care 67 mg/dl (65-105)
[2022-03-21] MEDS: REMDESIVIR 100 MG/NS 250 ML 100 MG/250 ML BAG 250 MG IVPB (10:15)
[2022-03-21 10:21] LABS: Toxigenic C. Diff NEGATIVE (NEGATIVE)
[2022-03-21] MEDS: ALBUTEROL SULFATE NEB 2.5 MG/3 ML INH INHALATION ×2 (11:50→21:30)
[2022-03-21] MEDS: IPRATROPIUM BR 0.02% INH SOLN 0.5 MG/2.5 ML VIAL INHALATION ×2 (11:50→21:30)
[2022-03-21 13:31] LABS: Glucose Point of Care 89 mg/dl (65-105)
[2022-03-21 17:32] LABS: Glucose Point of Care 157 mg/dl (65-105)
[2022-03-21] MEDS: INSULIN GLARGINE (*BKC) 100 UNITS/ML 20 UNITS SUB-Q (20:23)
[2022-03-21 20:41] LABS: Glucose Point of Care 201 mg/dl (65-105)
[2022-03-21] MEDS: SODIUM CHLORIDE NASAL GEL 14.1 GM 1 APPLIC NASAL (21:58)
[2022-03-21] MEDS: diphenhydrAMINE HCl CAP 25 MG CAPSULE 50 MG PO (22:01)
[2022-03-22] VITALS (22 sets, daily range): BP systolic 120–153; BP diastolic 48–66; PULSE 50–103; RESP 16–23; TEMP 36.2–36.6; O2SAT 93–99
[2022-03-22 05:58] LABS: Basophils Percent Auto 0.2 % (0.2-1.2); Eosinophils Percent Auto 0.2 % (0-4.4); Hematocrit 37.4 % (37.0-47.0); Hemoglobin 11.6 g/dL (12.0-15.0); Immature Granulocyte Absolute 0.11 K/mm3 (0.00-0.031); Immature Granulocyte Percent A 1.1 % (0-0.5); Lymphocytes Absolute Auto 0.99 K/mm3 (0.9-3.2); Mean Corpuscular Hemoglobin 30.3 pg (26-34); Mean Corpuscular Volume 97.7 fl (80-100); Mean Platelet Volume 10.2 fl (7.4-10.4); Monocytes Absolute Auto 0.9 K/mm3 (0.1-0.6); Monocytes Percent Auto 8.9 % (2.6-8.5); Neutrophils Absolute Auto 7.9 K/mm3 (1.3-6.7); Neutrophils Percent Auto 79.6 % (45.5-73.1); Platelet Count Result 399 k/mm3 (150-375); Red Blood Count 3.83 M/mm3 (4.2-5.4); Red Cell Distribution Width 13.9 % (11.5-14.5); White Blood Count 9.9 K/mm3 (4.5-10.0)
[2022-03-22 06:16] LABS: INR 1.7
[2022-03-22 06:41] LABS: Alanine Aminotransferase 30 U/L (6-35); Albumin Level 2.4 g/dL (3.5-5.1); Alkaline Phosphatase 78 U/L (38-126); Anion Gap -1 mmol/L (8-16); Aspartate Amino Transferase 44 U/L (14-36); Bilirubin,Total 0.3 mg/dL (0.2-1.3); Blood Urea Nitrogen 22 mg/dL (7-17); Calcium 7.8 mg/dL (8.4-10.2); Carbon Dioxide 39 mmol/L (22-30); Chloride 98 mmol/L (98-107); Estimated CRCL calculation 46 ml/min; Estimated Glomerular Filt Rate > 60; Glucose 49 mg/dL (65-110); Potassium 3.9 mmol/L (3.4-5.0); Sodium 136 mmol/L (137-145)
--- NOTE | 2022-03-22 06:59 | PC.NURSE ---
ACCUCHECK 57 REQUESTING JUICE, WILL RECHECK
[2022-03-22 07:12] LABS: Glucose Point of Care 72 mg/dl (65-105)
[2022-03-22 07:12] LABS: Glucose Point of Care 56 mg/dl (65-105)
[2022-03-22] MEDS: IPRATROPIUM BR 0.02% INH SOLN 0.5 MG/2.5 ML VIAL INHALATION ×4 (07:33→20:19)
[2022-03-22] MEDS: ALBUTEROL SULFATE NEB 2.5 MG/3 ML INH INHALATION ×4 (07:34→20:18)
--- NOTE | 2022-03-22 07:38 | PM.IMPN ---
Progress Note: A&P Assessment and Plan (1) Pneumonia: Code(s): J18.9 - Pneumonia, unspecified organism Status: Acute Assessment and Plan: Initially treated with cefepime and azithromycin. Leukocytosis worsened and patient without improvement. Imipenem and vancomycin started 03/15/22. COVID19 positive 03/19/22. Imipenem and vancomycin discontinued 03/21/22. Appears clinically stable at this time. Discussed patient with Dr. Angelo, pulmonology. Will likely get CXR on Friday to re-evaluate whether or not to continue remdesivir to complete 10 days versus 5 days of treatment. -Planned for CT Chest today -Appreciate recommendations from Pulmonology -Remdesivir #3 and dexamethasone 3/10 (2) Atrial fibrillation with rapid ventricular response: Code(s): I48.91 - Unspecified atrial fibrillation Status: Acute Assessment and Plan: Echo showed an EF of 55-60% . CTA negative for PE. Rate controlled on metoprolol 25 mg twice daily. Apixaban for stroke prophylaxis. -Continue metoprolol -Continue apixaban (3) COPD (chronic obstructive pulmonary disease): Code(s): J44.9 - Chronic obstructive pulmonary disease, unspecified Status: Acute Assessment and Plan: Continue BiPAP/Airvo and oxygen as tolerated. -Appreciate pulmonology recommendations (4) FIFI (generalized anxiety disorder): Code(s): F41.1 - Generalized anxiety disorder Status: Acute Assessment and Plan: Stable off alprazolam. (5) Benign essential HTN: Code(s): I10 - Essential (primary) hypertension Status: Acute Assessment and Plan: Controlled. Continue lisinopril and metoprolol. (6) Diabetes mellitus: Code(s): E11.9 - Type 2 diabetes mellitus without complications Status: Acute Assessment and Plan: A1c 8.2. -metformin, -Continue Accu-Cheks and intensive sliding scale insulin, -Glargine 20 units nightly (7) Acute respiratory failure with hypoxia: Code(s): J96.01 - Acute respiratory failure with hypoxia Status: Acute Assessment and Plan: Multifactorial - pneumonia, COVID19 and COPD. Continues to require oxygen for adequate oxygen saturation. Will work to wean oxygen today and observe. (8) Hyponatremia: Code(s): E87.1 - Hypo-osmolality and hyponatremia Status: Acute Assessment and Plan: Resolved. (9) Hyperkalemia: Code(s): E87.5 - Hyperkalemia Status: Acute Assessment and Plan: Corrected (10) Chronic respiratory failure with hypercapnia: Code(s): J96.12 - Chronic respiratory failure with hypercapnia Status: Acute Assessment and Plan: Multifactorial secondary to COPD exacerbation, viral and/or bacterial pneumonia, moderate pulmonary hypertension and right ventricular heart failure, wean as able. (11) Lung nodule: Code(s): R91.1 - Solitary pulmonary nodule Status: Acute Assessment and Plan: CT chest shows nodule in left lung lower lobe suspicious for primary bronchogenic carcinoma. Noncontrast low-dose chest CT is recommended in 3 months. Plan Anticoagulated Code status DNR/DNI Subjective Date/time seen: 03/22/22 07:38 Patient says she feels better. Denies shortness of breath or difficulty breathing. Says she feels wiped out after such a busy. Says she worked with PT walking around the room and did leg exercises. Review of Systems Respiratory: Respiratory: Denies dyspnea and Reports dyspnea on exertion Exam Narrative: GENERAL: NAD, cooperative HEENT: Normocephalic, atraumatic, anicteric, nares clear, oropharynx moist and clear NECK: Supple CV:regular rate RESP: No wheezes, rhonchi or rales. Wearing oxygen. EXTREMITIES: Warm and well perfused, no clubbing, cyanosis, or edema. SKIN: warm, dry and intact. NEURO: Alert and oriented. Objective Data Vital Signs Vital
[2022-03-22 09:00] LABS: Glucose Point of Care 79 mg/dl (65-105)
[2022-03-22] MEDS: APIXABAN 5 MG TABLET PO ×2 (09:22→21:04)
[2022-03-22] MEDS: ATORVASTATIN 10 MG TABLET PO (09:22)
[2022-03-22] MEDS: METOPROLOL TARTRATE 25 MG TABLET PO ×2 (09:23→21:04)
[2022-03-22] MEDS: lisinopriL 5 MG TABLET PO (09:23)
[2022-03-22] MEDS: THERAPEUTIC MULTIVITAMINS/MINERALS TAB (*BKC) 1 TABLET PO (09:24)
[2022-03-22] MEDS: REMDESIVIR 100 MG/NS 250 ML 100 MG/250 ML BAG 250 MG IVPB (10:45)
[2022-03-22 12:21] LABS: Glucose Point of Care 94 mg/dl (65-105)
[2022-03-22] MEDS: DORNASE ALFA INH SOLN 1 MG/ML 2.5 ML AMP 2.5 MG INHALATION (12:22)
--- NOTE | 2022-03-22 14:30 | PCOTNOTE ---
Attempted to see patient for OT. Patient refused, stating she just got back to bed after sitting up so long I thought I was going to pass out. Patient reports understanding importance of participating in therapy, but continued to decline to participate. Patient not seen for OT.
[2022-03-22] MEDS: metFORMIN HCL 500 MG TABLET PO (18:01)
[2022-03-22 18:06] LABS: Glucose Point of Care 184 mg/dl (65-105)
[2022-03-22] MEDS: SODIUM CHLORIDE NASAL GEL 14.1 GM 1 APPLIC NASAL (21:00)
[2022-03-22] MEDS: diphenhydrAMINE HCl CAP 25 MG CAPSULE 50 MG PO (21:04)
[2022-03-22 21:11] LABS: Glucose Point of Care 166 mg/dl (65-105)
[2022-03-23] VITALS (20 sets, daily range): BP systolic 110–140; BP diastolic 50–75; PULSE 53–104; RESP 16–20; TEMP 36.1–36.6; O2SAT 94–99
[2022-03-23 05:33] LABS: INR 1.8; Prothrombin Time 19.9 Seconds (11.1-14.7)
[2022-03-23 05:47] LABS: Alanine Aminotransferase 30 U/L (6-35); Estimated CRCL calculation 46 ml/min; Estimated Glomerular Filt Rate > 60
[2022-03-23] MEDS: IPRATROPIUM BR 0.02% INH SOLN 0.5 MG/2.5 ML VIAL INHALATION ×3 (08:06→20:34)
[2022-03-23] MEDS: ALBUTEROL SULFATE NEB 2.5 MG/3 ML INH INHALATION ×3 (08:06→20:34)
[2022-03-23] MEDS: APIXABAN 5 MG TABLET PO ×2 (08:43→21:30)
[2022-03-23] MEDS: ATORVASTATIN 10 MG TABLET PO (08:43)
[2022-03-23] MEDS: THERAPEUTIC MULTIVITAMINS/MINERALS TAB (*BKC) 1 TABLET PO (08:44)
[2022-03-23] MEDS: lisinopriL 5 MG TABLET PO (08:44)
[2022-03-23] MEDS: METOPROLOL TARTRATE 25 MG TABLET PO ×2 (08:44→21:30)
[2022-03-23 09:00] LABS: Glucose Point of Care 53 mg/dl (65-105)
[2022-03-23 09:44] LABS: Glucose Point of Care 163 mg/dl (65-105)
[2022-03-23] MEDS: REMDESIVIR 100 MG/NS 250 ML 100 MG/250 ML BAG 250 MG IVPB (10:43)
[2022-03-23] MEDS: guaiFENesin 12 HR 600 MG TABCR PO ×2 (10:43→21:30)
[2022-03-23 13:04] LABS: Glucose Point of Care 150 mg/dl (65-105)
[2022-03-23 16:53] LABS: Glucose Point of Care 236 mg/dl (65-105)
[2022-03-23] MEDS: INSULIN ASPART (*BKC) 100 UNITS/ML SUB-Q (17:25)
[2022-03-23] MEDS: metFORMIN HCL 500 MG TABLET PO (17:26)
--- NOTE | 2022-03-23 18:12 | PM.IMPN ---
Progress Note: A&P Assessment and Plan (1) Pneumonia: Code(s): J18.9 - Pneumonia, unspecified organism Status: Acute Assessment and Plan: Initially treated with cefepime and azithromycin. Leukocytosis worsened and patient without improvement. Imipenem and vancomycin started 03/15/22. COVID19 positive 03/19/22. Imipenem and vancomycin discontinued 03/21/22. Appears clinically stable at this time. -Remdesivir 4 and dexamethasone / (2) Atrial fibrillation with rapid ventricular response: Code(s): I48.91 - Unspecified atrial fibrillation Status: Acute Assessment and Plan: Echo showed an EF of 55-60% . CTA negative for PE. Rate controlled on metoprolol 25 mg twice daily. Apixaban for stroke prophylaxis. -Continue metoprolol -Continue apixaban (3) COPD (chronic obstructive pulmonary disease): Code(s): J44.9 - Chronic obstructive pulmonary disease, unspecified Status: Acute Assessment and Plan: Continue BiPAP/Airvo and oxygen as tolerated. -Appreciate pulmonology recommendations (4) FIFI (generalized anxiety disorder): Code(s): F41.1 - Generalized anxiety disorder Status: Acute Assessment and Plan: Stable off alprazolam. (5) Benign essential HTN: Code(s): I10 - Essential (primary) hypertension Status: Acute Assessment and Plan: Controlled. Continue lisinopril and metoprolol. (6) Diabetes mellitus: Code(s): E11.9 - Type 2 diabetes mellitus without complications Status: Acute Assessment and Plan: A1c 8.2. -metformin, -Continue Accu-Cheks and intensive sliding scale insulin 03/23 Stopped Glargine due to AM hypoglycemia in 50's (7) Acute respiratory failure with hypoxia: Code(s): J96.01 - Acute respiratory failure with hypoxia Status: Acute Assessment and Plan: Multifactorial - pneumonia, COVID19 and COPD. Continues to require oxygen for adequate oxygen saturation. Will work to wean oxygen today and observe. (8) Hyponatremia: Code(s): E87.1 - Hypo-osmolality and hyponatremia Status: Acute Assessment and Plan: Resolved. (9) Hyperkalemia: Code(s): E87.5 - Hyperkalemia Status: Acute Assessment and Plan: Corrected (10) Chronic respiratory failure with hypercapnia: Code(s): J96.12 - Chronic respiratory failure with hypercapnia Status: Acute Assessment and Plan: Multifactorial secondary to COPD exacerbation, viral and/or bacterial pneumonia, moderate pulmonary hypertension and right ventricular heart failure, wean as able. (11) Lung nodule: Code(s): R91.1 - Solitary pulmonary nodule Status: Acute Assessment and Plan: CT chest shows nodule in left lung lower lobe suspicious for primary bronchogenic carcinoma. Noncontrast low-dose chest CT is recommended in 3 months. Subjective Date/time seen: 03/23/22 18:12 Interval history: Feeling better. Excellent appetite. Some shortness of breath with exertion. Cough with minimal sputum production. Unable to produce sputum. Denied chest pain. Denied GI issues. Abnormal bleeding. Denied focal weakness. Denied fevers or chills. Review of Systems Review of Systems: All systems reviewed & are unremarkable except as noted in HPI and below Exam Narrative: GENERAL: NAD, cooperative HEENT: Normocephalic, atraumatic, anicteric, nares clear, oropharynx moist and clear NECK: Supple CV:regular rate RESP: Slightly coarse BS. No wheezes, rhonchi or rales. Wearing oxygen. EXTREMITIES: Warm and well perfused, no clubbing, cyanosis, or edema. SKIN: warm, dry and intact. NEURO: Alert and oriented. Objective Data Vital Signs Vital Signs: Vital Signs - 24 hr 03/22/22 18:39 03/22/22 20:16 03/22/22 20:17 Temperature 97.6 F Pulse Rate 99 74 80 Respiratory Rate 20 16 16 Blood Pressure
[2022-03-23] MEDS: DORNASE ALFA INH SOLN 1 MG/ML 2.5 ML AMP 2.5 MG INHALATION (20:34)
[2022-03-23] MEDS: diphenhydrAMINE HCl CAP 25 MG CAPSULE 50 MG PO (21:30)
[2022-03-23] MEDS: SODIUM CHLORIDE NASAL GEL 14.1 GM 1 APPLIC NASAL (21:35)
[2022-03-23 21:45] LABS: Glucose Point of Care 156 mg/dl (65-105)
[2022-03-24] VITALS (19 sets, daily range): BP systolic 112–152; BP diastolic 47–72; PULSE 72–100; RESP 16–21; TEMP 35.8–36.8; O2SAT 93–100
[2022-03-24 06:06] LABS: Alanine Aminotransferase 31 U/L (6-35); Estimated CRCL calculation 46 ml/min; Estimated Glomerular Filt Rate > 60
[2022-03-24 06:07] LABS: INR 1.7; Prothrombin Time 19.5 Seconds (11.1-14.7)
[2022-03-24] MEDS: ATORVASTATIN 10 MG TABLET PO (08:44)
[2022-03-24] MEDS: APIXABAN 5 MG TABLET PO ×2 (08:44→21:06)
[2022-03-24] MEDS: THERAPEUTIC MULTIVITAMINS/MINERALS TAB (*BKC) 1 TABLET PO (08:45)
[2022-03-24] MEDS: METOPROLOL TARTRATE 25 MG TABLET PO ×2 (08:45→21:06)
[2022-03-24] MEDS: guaiFENesin 12 HR 600 MG TABCR PO ×2 (08:45→21:06)
[2022-03-24] MEDS: lisinopriL 5 MG TABLET PO (08:45)
[2022-03-24 08:56] LABS: Glucose Point of Care 57 mg/dl (65-105)
[2022-03-24] MEDS: DORNASE ALFA INH SOLN 1 MG/ML 2.5 ML AMP 2.5 MG INHALATION ×2 (10:05→21:57)
[2022-03-24] MEDS: IPRATROPIUM BR 0.02% INH SOLN 0.5 MG/2.5 ML VIAL INHALATION ×3 (10:06→21:57)
[2022-03-24] MEDS: ALBUTEROL SULFATE NEB 2.5 MG/3 ML INH INHALATION ×3 (10:06→21:57)
[2022-03-24] MEDS: REMDESIVIR 100 MG/NS 250 ML 100 MG/250 ML BAG 250 MG IVPB (10:48)
[2022-03-24 11:04] LABS: Glucose Point of Care 189 mg/dl (65-105)
--- NOTE | 2022-03-24 12:29 | PM.IMPN ---
Progress Note: A&P Assessment and Plan (1) Pneumonia: Code(s): J18.9 - Pneumonia, unspecified organism Status: Acute Assessment and Plan: Initially treated with cefepime and azithromycin. Leukocytosis worsened and patient without improvement. Imipenem and vancomycin started 03/15/22. COVID19 positive 03/19/22. Imipenem and vancomycin discontinued 03/21/22. Appears clinically stable at this time. -Remdesivir (2) Atrial fibrillation with rapid ventricular response: Code(s): I48.91 - Unspecified atrial fibrillation Status: Acute Assessment and Plan: Echo showed an EF of 55-60% . CTA negative for PE. Rate controlled on metoprolol 25 mg twice daily. Apixaban for stroke prophylaxis. -Continue metoprolol -Continue apixaban (3) COPD (chronic obstructive pulmonary disease): Code(s): J44.9 - Chronic obstructive pulmonary disease, unspecified Status: Acute Assessment and Plan: Continue BiPAP/Airvo and oxygen as tolerated. -Appreciate pulmonology recommendations (4) FIFI (generalized anxiety disorder): Code(s): F41.1 - Generalized anxiety disorder Status: Acute Assessment and Plan: Stable off alprazolam. (5) Benign essential HTN: Code(s): I10 - Essential (primary) hypertension Status: Acute Assessment and Plan: Controlled. Continue lisinopril and metoprolol. (6) Diabetes mellitus: Code(s): E11.9 - Type 2 diabetes mellitus without complications Status: Acute Assessment and Plan: A1c 8.2. -metformin, -Continue Accu-Cheks and intensive sliding scale insulin 03/23 Stopped Glargine due to AM hypoglycemia in 50's (7) Acute respiratory failure with hypoxia: Code(s): J96.01 - Acute respiratory failure with hypoxia Status: Acute Assessment and Plan: Multifactorial - pneumonia, COVID19 and COPD. Continues to require oxygen for adequate oxygen saturation. Will work to wean oxygen today and observe. (8) Hyponatremia: Code(s): E87.1 - Hypo-osmolality and hyponatremia Status: Acute Assessment and Plan: Resolved. (9) Hyperkalemia: Code(s): E87.5 - Hyperkalemia Status: Acute Assessment and Plan: Corrected (10) Chronic respiratory failure with hypercapnia: Code(s): J96.12 - Chronic respiratory failure with hypercapnia Status: Acute Assessment and Plan: Multifactorial secondary to COPD exacerbation, viral and/or bacterial pneumonia, moderate pulmonary hypertension and right ventricular heart failure, wean as able. (11) Lung nodule: Code(s): R91.1 - Solitary pulmonary nodule Status: Acute Assessment and Plan: CT chest shows nodule in left lung lower lobe suspicious for primary bronchogenic carcinoma. Noncontrast low-dose chest CT is recommended in 3 months. Subjective Date/time seen: 03/24/22 12:29 her respiratory status unchanged Exam Narrative: GENERAL: NAD, cooperative HEENT: Normocephalic, atraumatic, anicteric, nares clear, oropharynx moist and clear NECK: Supple CV:regular rate RESP: Slightly coarse BS. No wheezes, rhonchi or rales. Wearing oxygen. EXTREMITIES: Warm and well perfused, no clubbing, cyanosis, or edema. SKIN: warm, dry and intact. NEURO: Alert and oriented. Objective Data Vital Signs Vital Signs: Vital Signs - 24 hr 03/23/22 15:38 03/23/22 15:38 03/23/22 14:00 Temperature 97.8 F Pulse Rate 81 81 90 Respiratory Rate 18 18 18 Blood Pressure 140/56 L Pulse Oximetry 94 96 Oxygen Delivery Nasal Cannula Oxygen Flow Rate 4 03/23/22 16:07 03/23/22 18:00 03/23/22 20:34 Temperature 97.7 F Pulse Rate 104 H 53 L 75 Respiratory Rate 16 18 Blood Pressure 110/59 L Pulse Oximetry 97 Oxygen Delivery Oxygen Flow Rate 03/23/22 20:38 03/23/22 21:00 03/23/22 21:30 Temperature Pulse Rate 79 8
[2022-03-24 12:36] LABS: Glucose Point of Care 211 mg/dl (65-105)
[2022-03-24 17:37] LABS: Glucose Point of Care 292 mg/dl (65-105)
[2022-03-24] MEDS: metFORMIN HCL 500 MG TABLET PO (18:03)
[2022-03-24] MEDS: SODIUM CHLORIDE NASAL GEL 14.1 GM 1 APPLIC NASAL (21:06)
[2022-03-24] MEDS: diphenhydrAMINE HCl CAP 25 MG CAPSULE 50 MG PO (21:06)
[2022-03-24 21:26] LABS: Glucose Point of Care 251 mg/dl (65-105)
[2022-03-25] VITALS (14 sets, daily range): BP systolic 113–140; BP diastolic 45–57; PULSE 70–100; RESP 18–28; TEMP 35.9–36.7; O2SAT 93–97
[2022-03-25 05:42] LABS: Alanine Aminotransferase 27 U/L (6-35); Estimated CRCL calculation 46 ml/min; Estimated Glomerular Filt Rate > 60
[2022-03-25 05:46] LABS: INR 1.5; Prothrombin Time 17.8 Seconds (11.1-14.7)
[2022-03-25] MEDS: THERAPEUTIC MULTIVITAMINS/MINERALS TAB (*BKC) 1 TABLET PO (08:14)
[2022-03-25] MEDS: ATORVASTATIN 10 MG TABLET PO (08:14)
[2022-03-25] MEDS: APIXABAN 5 MG TABLET PO ×2 (08:14→21:04)
[2022-03-25] MEDS: guaiFENesin 12 HR 600 MG TABCR PO ×2 (08:14→21:03)
[2022-03-25] MEDS: lisinopriL 5 MG TABLET PO (08:14)
[2022-03-25] MEDS: METOPROLOL TARTRATE 25 MG TABLET PO ×2 (08:15→21:04)
[2022-03-25 09:10] LABS: Glucose Point of Care 118 mg/dl (65-105)
[2022-03-25 10:23] LABS: Glucose Point of Care 72 mg/dl (65-105)
--- NOTE | 2022-03-25 10:45 | PM.IMPN ---
Progress Note: A&P Assessment and Plan (1) Pneumonia: Code(s): J18.9 - Pneumonia, unspecified organism Status: Acute Assessment and Plan: Initially treated with cefepime and azithromycin. Leukocytosis worsened and patient without improvement. Imipenem and vancomycin started 03/15/22. COVID19 positive 03/19/22. Imipenem and vancomycin discontinued 03/21/22. Appears clinically stable at this time. -Remdesivir and dexamethasone for total 10 days prior to dc (2) Atrial fibrillation with rapid ventricular response: Code(s): I48.91 - Unspecified atrial fibrillation Status: Acute Assessment and Plan: Echo showed an EF of 55-60% . CTA negative for PE. Rate controlled on metoprolol 25 mg twice daily. Apixaban for stroke prophylaxis. -Continue metoprolol -Continue apixaban (3) COPD (chronic obstructive pulmonary disease): Code(s): J44.9 - Chronic obstructive pulmonary disease, unspecified Status: Acute Assessment and Plan: Continue BiPAP/Airvo and oxygen as tolerated. -Appreciate pulmonology recommendations (4) FIFI (generalized anxiety disorder): Code(s): F41.1 - Generalized anxiety disorder Status: Acute Assessment and Plan: Stable off alprazolam. (5) Benign essential HTN: Code(s): I10 - Essential (primary) hypertension Status: Acute Assessment and Plan: Controlled. Continue lisinopril and metoprolol. (6) Diabetes mellitus: Code(s): E11.9 - Type 2 diabetes mellitus without complications Status: Acute Assessment and Plan: A1c 8.2. -metformin, -Continue Accu-Cheks and intensive sliding scale insulin 03/23 Stopped Glargine due to AM hypoglycemia in 50's (7) Acute respiratory failure with hypoxia: Code(s): J96.01 - Acute respiratory failure with hypoxia Status: Acute Assessment and Plan: Multifactorial - pneumonia, COVID19 and COPD. Continues to require oxygen for adequate oxygen saturation. Will work to wean oxygen today and observe. (8) Hyponatremia: Code(s): E87.1 - Hypo-osmolality and hyponatremia Status: Acute Assessment and Plan: Resolved. (9) Hyperkalemia: Code(s): E87.5 - Hyperkalemia Status: Acute Assessment and Plan: Corrected (10) Chronic respiratory failure with hypercapnia: Code(s): J96.12 - Chronic respiratory failure with hypercapnia Status: Acute Assessment and Plan: Multifactorial secondary to COPD exacerbation, viral and/or bacterial pneumonia, moderate pulmonary hypertension and right ventricular heart failure, wean as able. (11) Lung nodule: Code(s): R91.1 - Solitary pulmonary nodule Status: Acute Assessment and Plan: CT chest shows nodule in left lung lower lobe suspicious for primary bronchogenic carcinoma. Noncontrast low-dose chest CT is recommended in 3 months. Subjective Date/time seen: 03/25/22 10:45 no new complaints Exam Narrative: GENERAL: NAD, cooperative HEENT: Normocephalic, atraumatic, anicteric, nares clear, oropharynx moist and clear NECK: Supple CV:regular rate RESP: Slightly coarse BS. No wheezes, rhonchi or rales. Wearing oxygen. EXTREMITIES: Warm and well perfused, no clubbing, cyanosis, or edema. SKIN: warm, dry and intact. NEURO: Alert and oriented. Objective Data Vital Signs Vital Signs: Vital Signs - 24 hr 03/24/22 12:00 03/24/22 14:57 03/24/22 15:10 Temperature Pulse Rate 79 76 81 Respiratory Rate 18 18 Blood Pressure Pulse Oximetry Oxygen Delivery Oxygen Flow Rate 03/24/22 14:00 03/24/22 16:00 03/24/22 18:00 Temperature 96.4 F L 96.9 F L Pulse Rate 73 90 100 Respiratory Rate 18 18 Blood Pressure 133/61 152/66 H Pulse Oximetry 94 93 Oxygen Delivery Oxygen Flow Rate 03/24/22 21:06 03/24/22 22:00 03/24/22 22:01 Temperature Pulse
[2022-03-25] MEDS: REMDESIVIR 100 MG/NS 250 ML 100 MG/250 ML BAG 250 MG IVPB (10:56)
[2022-03-25] MEDS: metFORMIN HCL 500 MG TABLET PO ×2 (10:56→17:54)
--- NOTE | 2022-03-25 10:56 | PCRCNOTE ---
Window of time for administration has passed. See next scheduled administration.
[2022-03-25] MEDS: DORNASE ALFA INH SOLN 1 MG/ML 2.5 ML AMP 2.5 MG INHALATION (11:00)
[2022-03-25] MEDS: ALBUTEROL SULFATE NEB 2.5 MG/3 ML INH INHALATION ×2 (11:00→15:38)
[2022-03-25] MEDS: IPRATROPIUM BR 0.02% INH SOLN 0.5 MG/2.5 ML VIAL INHALATION ×2 (11:00→15:38)
[2022-03-25 12:08] LABS: Glucose Point of Care 198 mg/dl (65-105)
--- NOTE | 2022-03-25 13:49 | PM.PNPUL ---
Progress Note: A&P Assessment and Plan (1) Pneumonia due to COVID-19 virus: Code(s): U07.1 - COVID-19; J12.82 - Pneumonia due to coronavirus disease 2019 Status: Acute (2) Chronic respiratory failure with hypercapnia: Code(s): J96.12 - Chronic respiratory failure with hypercapnia Status: Acute Assessment and Plan: 86-year-old female was admitted with hypoxemic hypercapnic respiratory failure related to COPD exacerbation. although initial testing negative, repeat testing for COVID 19 infection was positive during hospitalization.The patient's respiratory status improved following following treatment for hypercapnic respiratory failure / COPD exacerbation. Plan: patient has a a new left lower lobe infiltrate unclear whether it is pneumonia or pleural effusion. She did have pleural effusions bilaterally on initial chest imaging. I would gently diurese patient while monitoring vital signs. repeat WBC. Continue to monitor respiratory status (3) COPD exacerbation: Code(s): J44.1 - Chronic obstructive pulmonary disease with (acute) exacerbation Status: Acute (4) Acute respiratory failure with hypoxia: Code(s): J96.01 - Acute respiratory failure with hypoxia Status: Acute (5) Diabetes mellitus: Code(s): E11.9 - Type 2 diabetes mellitus without complications Status: Acute Subjective Date/time seen: 03/25/22 13:49 86-year-old female presented with hypoxemic hypercapnic respiratory failure. She has history of COPD and congestive heart failure. During hospitalization she tested positive for COVID 19. She has been on treatment with remdesivir and dexamethasone. She no longer requiring BiPAP support. She is on just supplemental oxygen via nasal cannula. She has some cough with dark sputum production. She is afebrile. Has been no change in her shortness of breath. She has no orthopnea. initial chest imaging studies showed increased lung congestion and small bilateral pleural effusions suggestive of a congestive heart failure. BNP was also very elevated. Last chest x-ray shows a new left lower lobe infiltrate versus atelectasis versus pleural effusion. White cell count has come down into the normal range. Review of Systems Review of Systems: All system review is negative except as noted in HPI and below Exam Narrative: GENERAL APPEARANCE: Well developed, well nourished, alert and cooperative, and appears to be in mild respiratory distress while on supplemental oxygen SKIN: Inspection of the skin reveals no rashes, ulcerations or petechiae. HEENT: Sclerae anicteric and conjunctivae pink and moist. Extraocular movements were intact and pupils were equal, round. NECK: Supple. There was no thyroid enlargement, and no tenderness, or masses were felt. LUNGS: Auscultation of the lungs revealed distant breath sounds bilaterally, crackles that based posteriorly no wheezing CARDIAC: There was a regular rate and rhythm without any murmurs. ABDOMEN: Soft and nontender with normal bowel sounds. There was no organomegaly. LYMPH NODES: No lymphadenopathy was appreciated in the neck. EXTREMITIES: No cyanosis, clubbing or edema. NEUROLOGIC: Alert and oriented x 3. Normal affect. Objective Data Vital Signs Vital Signs: Vital Signs - 24 hr 03/24/22 14:57 03/24/22 15:10 03/24/22 14:00 Temperature 35.8 C L Pulse Rate 76 81 73 Respiratory Rate 18 18 18 Blood Pressure 133/61 Pulse Oximetry 94 Oxygen Delivery Oxygen Flow Rate 03/24/22 16:00 03/24/22 18:00 03/24/22 21:06 Temperature 36.1 C L Pulse Rate 90 100 88 Respiratory Rate 18 Blood Pressure 152/66 H Pulse Oximetry 93 Oxygen Delivery Oxygen Flow Rate 03/24/22 22:00 03/24/22 22:01 03/24/22 20:00 Temperature Pulse Rate 75 84 Respiratory Rate 18 Blood Pressure Pulse Oximetry 94 Oxygen Delivery Nasal Cannula Oxygen Flow Rate 3 03/24/22 22:00 03/25/22 00:0
[2022-03-25] MEDS: FUROSEMIDE INJ 40 MG/4 ML VIAL 20 MG IV PUSH (15:36)
[2022-03-25 17:28] LABS: Glucose Point of Care 294 mg/dl (65-105)
[2022-03-25] MEDS: INSULIN ASPART (*BKC) 100 UNITS/ML SUB-Q (17:53)
[2022-03-25] MEDS: diphenhydrAMINE HCl CAP 25 MG CAPSULE 50 MG PO (21:03)
[2022-03-25] MEDS: SODIUM CHLORIDE NASAL GEL 14.1 GM 1 APPLIC NASAL (21:04)
[2022-03-25 21:46] LABS: Glucose Point of Care 231 mg/dl (65-105)
[2022-03-26] VITALS (18 sets, daily range): BP systolic 121–150; BP diastolic 50–84; PULSE 73–102; RESP 18; TEMP 36.1–36.6; O2SAT 95–98
--- NOTE | 2022-03-26 03:28 | PCRCNOTE ---
Window of time for administration has passed. See next scheduled administration.
[2022-03-26 05:32] LABS: Alanine Aminotransferase 28 U/L (6-35); Estimated CRCL calculation 52 ml/min; Estimated Glomerular Filt Rate > 60; INR 1.7
--- NOTE | 2022-03-26 08:41 | PCOTNOTE ---
Patient refused OT at this time, reports CUSTOMS MANAGER bathed her earlier. Will continue OT per plan of care.
[2022-03-26 08:59] LABS: Glucose Point of Care 73 mg/dl (65-105)
[2022-03-26] MEDS: guaiFENesin 12 HR 600 MG TABCR PO ×2 (09:07→20:15)
[2022-03-26] MEDS: APIXABAN 5 MG TABLET PO ×2 (09:07→20:15)
[2022-03-26] MEDS: ATORVASTATIN 10 MG TABLET PO (09:07)
[2022-03-26] MEDS: METOPROLOL TARTRATE 25 MG TABLET PO ×2 (09:07→20:13)
[2022-03-26] MEDS: lisinopriL 5 MG TABLET PO (09:08)
[2022-03-26] MEDS: THERAPEUTIC MULTIVITAMINS/MINERALS TAB (*BKC) 1 TABLET PO (09:08)
[2022-03-26] MEDS: metFORMIN HCL 500 MG TABLET PO ×2 (09:08→17:50)
[2022-03-26] MEDS: REMDESIVIR 100 MG/NS 250 ML 100 MG/250 ML BAG 250 MG IVPB (09:12)
--- NOTE | 2022-03-26 09:48 | PM.PNPUL ---
Progress Note: A&P Assessment and Plan (1) Pneumonia due to COVID-19 virus: Code(s): U07.1 - COVID-19; J12.82 - Pneumonia due to coronavirus disease 2019 Status: Acute (2) Chronic respiratory failure with hypercapnia: Code(s): J96.12 - Chronic respiratory failure with hypercapnia Status: Acute Assessment and Plan: 86-year-old female was admitted with hypoxemic hypercapnic respiratory failure related to COPD exacerbation. Initial testing for COVID 19 was negative. On repeat testing the patient was found to have a positive PCR and has been on treatment with remdesivir and dexamethasone. Respiratory status has been stable over the last 48 hours. She continues to have cough with dark sputum production but no shortness of breath or wheezing. She gets out of bed to chair. Chest x-ray showed possible new left lower lobe infiltrate versus atelectasis. She was given Lasix 20 mg IV x1 yesterday. Plan: Continue same treatment out of bed to chair. Repeat chest x-ray in a.m. repeat WBC.Continue to monitor respiratory status (3) COPD exacerbation: Code(s): J44.1 - Chronic obstructive pulmonary disease with (acute) exacerbation Status: Acute (4) Acute respiratory failure with hypoxia: Code(s): J96.01 - Acute respiratory failure with hypoxia Status: Acute (5) Diabetes mellitus: Code(s): E11.9 - Type 2 diabetes mellitus without complications Status: Acute Subjective Date/time seen: 03/26/22 09:48 Patient without any new respiratory symptoms; continues to have cough dark sputum. Remaining on supplemental oxygen at 3 liters/minute. She still on treatment for COVID-19 infection. Review of Systems Review of Systems: All system review is negative except as noted in HPI and below Exam Narrative: GENERAL APPEARANCE: Well developed, well nourished, alert and cooperative, and appears to be in mild respiratory distress while on supplemental oxygen SKIN: Inspection of the skin reveals no rashes, ulcerations or petechiae. HEENT: Sclerae anicteric and conjunctivae pink and moist. Extraocular movements were intact and pupils were equal, round. NECK: Supple. There was no thyroid enlargement, and no tenderness, or masses were felt. LUNGS: Auscultation of the lungs revealed distant breath sounds bilaterally, crackles that based posteriorly no wheezing CARDIAC: There was a regular rate and rhythm without any murmurs. ABDOMEN: Soft and nontender with normal bowel sounds. There was no organomegaly. LYMPH NODES: No lymphadenopathy was appreciated in the neck. EXTREMITIES: No cyanosis, clubbing or edema. NEUROLOGIC: Alert and oriented x 3. Normal affect. Objective Data Vital Signs Vital Signs: Vital Signs - 24 hr 03/25/22 10:34 03/25/22 11:02 03/25/22 11:09 Temperature 36.7 C Pulse Rate 79 90 Respiratory Rate 28 H 18 Blood Pressure 113/45 L Pulse Oximetry 94 94 Oxygen Delivery Nasal Cannula Oxygen Flow Rate 2.5 03/25/22 12:00 03/25/22 15:39 03/25/22 15:54 Temperature Pulse Rate 92 98 100 Respiratory Rate 18 18 Blood Pressure Pulse Oximetry Oxygen Delivery Oxygen Flow Rate 03/25/22 16:00 03/25/22 21:04 03/25/22 20:00 Temperature Pulse Rate 79 70 92 Respiratory Rate Blood Pressure Pulse Oximetry Oxygen Delivery Oxygen Flow Rate 03/25/22 22:00 03/26/22 00:00 03/26/22 01:39 Temperature 36.1 C L 36.3 C L Pulse Rate 70 73 73 Respiratory Rate 18 18 Blood Pressure 140/57 L 144/50 H Pulse Oximetry 95 97 Oxygen Delivery Oxygen Flow Rate 03/25/22 23:10 03/26/22 04:00 03/26/22 07:30 Temperature 36.1 C L Pulse Rate 74 73 Respiratory Rate 18 Blood Pressure 149/61 H Pulse Oximetry 93 96 Oxygen Delivery Nasal Cannula Oxygen Flow Rate 2.5 Intake/Output Intake/Output: Intake & Output 03/23/22 03/24/22 03/25/22 03/26/22 23:59 23:59 23:59 23:59 Intake Total 9430 8172 1530 600
--- NOTE | 2022-03-26 10:32 | PCRCNOTE ---
Window of time for administration has passed. See next scheduled administration.
--- NOTE | 2022-03-26 11:10 | PM.IMPN ---
Progress Note: A&P Assessment and Plan (1) Pneumonia: Code(s): J18.9 - Pneumonia, unspecified organism Status: Acute Assessment and Plan: Initially treated with cefepime and azithromycin. Leukocytosis worsened and patient without improvement. Imipenem and vancomycin started 03/15/22. COVID19 positive 03/19/22. Imipenem and vancomycin discontinued 03/21/22. Appears clinically stable at this time. -Remdesivir and dexamethasone for total 10 days prior to dc (2) Atrial fibrillation with rapid ventricular response: Code(s): I48.91 - Unspecified atrial fibrillation Status: Acute Assessment and Plan: Echo showed an EF of 55-60% . CTA negative for PE. Rate controlled on metoprolol 25 mg twice daily. Apixaban for stroke prophylaxis. -Continue metoprolol -Continue apixaban (3) COPD (chronic obstructive pulmonary disease): Code(s): J44.9 - Chronic obstructive pulmonary disease, unspecified Status: Acute Assessment and Plan: Continue BiPAP/Airvo and oxygen as tolerated. -Appreciate pulmonology recommendations (4) FIFI (generalized anxiety disorder): Code(s): F41.1 - Generalized anxiety disorder Status: Acute Assessment and Plan: Stable off alprazolam. (5) Benign essential HTN: Code(s): I10 - Essential (primary) hypertension Status: Acute Assessment and Plan: Controlled. Continue lisinopril and metoprolol. (6) Diabetes mellitus: Code(s): E11.9 - Type 2 diabetes mellitus without complications Status: Acute Assessment and Plan: A1c 8.2. -metformin, -Continue Accu-Cheks and intensive sliding scale insulin (7) Acute respiratory failure with hypoxia: Code(s): J96.01 - Acute respiratory failure with hypoxia Status: Acute Assessment and Plan: Multifactorial - pneumonia, COVID19 and COPD. Continues to require oxygen for adequate oxygen saturation. Will work to wean oxygen today and observe. (8) Hyponatremia: Code(s): E87.1 - Hypo-osmolality and hyponatremia Status: Acute Assessment and Plan: Resolved. (9) Hyperkalemia: Code(s): E87.5 - Hyperkalemia Status: Acute Assessment and Plan: Corrected (10) Chronic respiratory failure with hypercapnia: Code(s): J96.12 - Chronic respiratory failure with hypercapnia Status: Acute Assessment and Plan: Multifactorial secondary to COPD exacerbation, viral and/or bacterial pneumonia, moderate pulmonary hypertension and right ventricular heart failure, wean as able. (11) Lung nodule: Code(s): R91.1 - Solitary pulmonary nodule Status: Acute Assessment and Plan: CT chest shows nodule in left lung lower lobe suspicious for primary bronchogenic carcinoma. Noncontrast low-dose chest CT is recommended in 3 months. Subjective Date/time seen: 03/26/22 11:10 Doing well, on 3L of oxygen. Does not appear to be short of breath. Exam Narrative: GENERAL: NAD, cooperative HEENT: Normocephalic, atraumatic, anicteric, nares clear, oropharynx moist and clear NECK: Supple CV:regular rate RESP: Slightly coarse BS. No wheezes, rhonchi or rales. Wearing oxygen. EXTREMITIES: Warm and well perfused, no clubbing, cyanosis, or edema. SKIN: warm, dry and intact. NEURO: Alert and oriented. Objective Data Vital Signs Vital Signs: Vital Signs - 24 hr 03/25/22 12:00 03/25/22 15:39 03/25/22 15:54 Temperature Pulse Rate 92 98 100 Respiratory Rate 18 18 Blood Pressure Pulse Oximetry Oxygen Delivery Oxygen Flow Rate 03/25/22 16:00 03/25/22 21:04 03/25/22 20:00 Temperature Pulse Rate 79 70 92 Respiratory Rate Blood Pressure Pulse Oximetry Oxygen Delivery Oxygen Flow Rate 03/25/22 22:00 03/26/22 00:00 03/26/22 01:39 Temperature 97.0 F L 97.4 F L Pulse Rate 70 73 73 Respirat
[2022-03-26] MEDS: ALBUTEROL SULFATE NEB 2.5 MG/3 ML INH INHALATION ×3 (12:01→21:03)
[2022-03-26] MEDS: IPRATROPIUM BR 0.02% INH SOLN 0.5 MG/2.5 ML VIAL INHALATION ×3 (12:02→21:03)
[2022-03-26 12:38] LABS: Glucose Point of Care 167 mg/dl (65-105)
--- NOTE | 2022-03-26 14:40 | PCOTNOTE ---
Attempted to see patient, patient reports not wanting to get up at this time. Patient encouraged to participate, patient reports I want to sit up to eat later. Reiterated to patient that rehab may be beneficial due to poor endurance. Patient reports willing to consider. Patient not seen for OT at this time.
[2022-03-26 17:34] LABS: Glucose Point of Care 272 mg/dl (65-105)
[2022-03-26] MEDS: INSULIN ASPART (*BKC) 100 UNITS/ML SUB-Q (17:50)
[2022-03-26] MEDS: diphenhydrAMINE HCl CAP 25 MG CAPSULE 50 MG PO (20:16)
[2022-03-26] MEDS: SODIUM CHLORIDE NASAL GEL 14.1 GM 1 APPLIC NASAL (20:17)
[2022-03-26] MEDS: DORNASE ALFA INH SOLN 1 MG/ML 2.5 ML AMP 2.5 MG INHALATION (21:04)
[2022-03-27] VITALS (19 sets, daily range): BP systolic 119–150; BP diastolic 52–87; PULSE 64–110; RESP 18–25; TEMP 36.4–37; O2SAT 92–98
[2022-03-27 06:08] LABS: Basophils Percent Auto 0.2 % (0.2-1.2); Eosinophils Absolute Auto 0.1 K/mm3 (0-0.3); Eosinophils Percent Auto 0.5 % (0-4.4); Hemoglobin 12.1 g/dL (12.0-15.0); Immature Granulocyte Absolute 0.14 K/mm3 (0.00-0.031); Immature Granulocyte Percent A 0.8 % (0-0.5); Lymphocytes Absolute Auto 1.52 K/mm3 (0.9-3.2); Lymphocytes Percent Auto 8.7 % (18.3-44.2); Mean Corpuscular HGB Conc 31.8 g/dl (32-36); Mean Corpuscular Hemoglobin 29.9 pg (26-34); Mean Corpuscular Volume 93.8 fl (80-100); Mean Platelet Volume 10.3 fl (7.4-10.4); Monocytes Percent Auto 5.6 % (2.6-8.5); Neutrophils Absolute Auto 14.7 K/mm3 (1.3-6.7); Neutrophils Percent Auto 84.2 % (45.5-73.1); Platelet Count Result 401 k/mm3 (150-375); Red Blood Count 4.05 M/mm3 (4.2-5.4); White Blood Count 17.4 K/mm3 (4.5-10.0)
[2022-03-27 06:17] LABS: INR 1.7; Prothrombin Time 18.9 Seconds (11.1-14.7)
[2022-03-27 06:24] LABS: Alanine Aminotransferase 30 U/L (6-35); Estimated CRCL calculation 52 ml/min; Estimated Glomerular Filt Rate > 60
[2022-03-27] MEDS: IPRATROPIUM BR 0.02% INH SOLN 0.5 MG/2.5 ML VIAL INHALATION ×3 (08:23→21:01)
[2022-03-27] MEDS: ALBUTEROL SULFATE NEB 2.5 MG/3 ML INH INHALATION ×3 (08:23→21:02)
[2022-03-27] MEDS: lisinopriL 5 MG TABLET PO (08:52)
[2022-03-27] MEDS: THERAPEUTIC MULTIVITAMINS/MINERALS TAB (*BKC) 1 TABLET PO (08:52)
[2022-03-27] MEDS: APIXABAN 5 MG TABLET PO ×2 (08:52→20:43)
[2022-03-27] MEDS: guaiFENesin 12 HR 600 MG TABCR PO ×2 (08:52→20:43)
[2022-03-27] MEDS: METOPROLOL TARTRATE 25 MG TABLET PO ×2 (08:52→20:43)
[2022-03-27] MEDS: ATORVASTATIN 10 MG TABLET PO (08:52)
[2022-03-27] MEDS: metFORMIN HCL 500 MG TABLET PO ×2 (08:53→18:07)
[2022-03-27 08:57] LABS: Glucose Point of Care 101 mg/dl (65-105)
--- NOTE | 2022-03-27 09:12 | PCNFU ---
Nutrition Follow-Up Complete: Inadequate oral intake related to fatigue, loss of appetite as evidenced by ground operations crew member, 50% intakes goal: Adequate PO intake at least 75% meals Patient is meeting current goal. We will continue current goal. Pt current nutrition is Heart Healthy. Last recorded weight is 66.4 kg. Bowel Motility:+BM reported 03/26 Labs Reviewed:Cr 0.6 Meds Noted:Remdesivir,Decadron, MVI, Glucophage Skin: WNL Additional Notes: Patient current with heart healthy diet. Oral Intake 50-90% of meals. Diet supplements of Glucerna shakes TID providing an additional 220 kcals and 10 gms protein. Agree with diet orders. Monitoring intakes, weights, labs, plan of care, supplement tolerance. Follow up in 7 days
[2022-03-27] MEDS: REMDESIVIR 100 MG/NS 250 ML 100 MG/250 ML BAG 250 MG IVPB (09:59)
[2022-03-27] MEDS: FAMOTIDINE 20 MG TABLET PO ×2 (09:59→20:43)
[2022-03-27] MEDS: DORNASE ALFA INH SOLN 1 MG/ML 2.5 ML AMP 2.5 MG INHALATION ×2 (10:29→21:02)
--- NOTE | 2022-03-27 11:08 | PM.PNPUL ---
Progress Note: A&P Assessment and Plan (1) Pneumonia due to COVID-19 virus: Code(s): U07.1 - COVID-19; J12.82 - Pneumonia due to coronavirus disease 2018 Status: Acute (2) Chronic respiratory failure with hypercapnia: Code(s): J96.12 - Chronic respiratory failure with hypercapnia Status: Acute Assessment and Plan: 86-year-old female was admitted with hypoxemic hypercapnic respiratory failure related to COPD exacerbation. Initial testing for COVID 19 was negative. On repeat testing the patient was found to have a positive PCR and has been on treatment with remdesivir and dexamethasone. Respiratory status has been stable over the last 3 days She continues to have some cough but no shortness of breath or wheezing. She gets out of bed to chair. Chest x-ray showed partial clearing of left lower lobe infiltrate. WBC elevated probably related to dexamethasone. Plan: Continue same treatment out of bed to chair. Consider p.r.n. Lasix IV as lung infiltrate improved on chest x-ray; there may still be a small left pleural effusion. (3) COPD exacerbation: Code(s): J44.1 - Chronic obstructive pulmonary disease with (acute) exacerbation Status: Acute (4) Acute respiratory failure with hypoxia: Code(s): J96.01 - Acute respiratory failure with hypoxia Status: Acute (5) Diabetes mellitus: Code(s): E11.9 - Type 2 diabetes mellitus without complications Status: Acute Subjective Date/time seen: 03/27/22 11:08 no new respiratory symptoms. Afebrile shortness of breath about unchanged remaining on supplemental oxygen via nasal cannula. Continues to have a cough with sputum production. She still on treatment for COVID 19 infection. Review of Systems Review of Systems: All system review is negative except as noted in HPI and below Exam Narrative: GENERAL APPEARANCE: Well developed, well nourished, alert and cooperative, and appears to be in mild respiratory distress while on supplemental oxygen SKIN: Inspection of the skin reveals no rashes, ulcerations or petechiae. HEENT: Sclerae anicteric and conjunctivae pink and moist. Extraocular movements were intact and pupils were equal, round. NECK: Supple. There was no thyroid enlargement, and no tenderness, or masses were felt. LUNGS: Auscultation of the lungs revealed distant breath sounds bilaterally, crackles that based posteriorly no wheezing CARDIAC: There was a regular rate and rhythm without any murmurs. ABDOMEN: Soft and nontender with normal bowel sounds. There was no organomegaly. LYMPH NODES: No lymphadenopathy was appreciated in the neck. EXTREMITIES: No cyanosis, clubbing or edema. NEUROLOGIC: Alert and oriented x 3. Normal affect. Objective Data Vital Signs Vital Signs: Vital Signs - 24 hr 03/26/22 12:00 03/26/22 12:00 03/26/22 15:58 Temperature Pulse Rate 74 74 89 Respiratory Rate 18 Blood Pressure Pulse Oximetry Oxygen Delivery Oxygen Flow Rate Fraction of Inspired Oxygen 03/26/22 16:07 03/26/22 14:45 03/26/22 16:00 Temperature 36.4 C L Pulse Rate 85 77 76 Respiratory Rate 18 18 Blood Pressure 140/67 Pulse Oximetry 97 Oxygen Delivery Oxygen Flow Rate Fraction of Inspired Oxygen 03/26/22 18:50 03/26/22 20:13 03/26/22 21:04 Temperature 36.4 C Pulse Rate 102 H 96 94 Respiratory Rate 18 18 Blood Pressure 121/84 Pulse Oximetry 95 Oxygen Delivery Oxygen Flow Rate Fraction of Inspired Oxygen 03/26/22 21:05 03/26/22 21:17 03/26/22 21:33 Temperature 36.6 C Pulse Rate 88 99 Respiratory Rate 18 18 Blood Pressure 150/80 H Pulse Oximetry 95 96 Oxygen Delivery Nasal Cannula Oxygen Flow Rate 3 Fraction of Inspired Oxygen 03/26/22 20:15 03/26/22 20:15 03/27/22 01:50 Temperature 37.0 C Pulse Rate 95 99 80 Respiratory Rate 18 18 Blood Pressure 140/71 Pulse Oximetry 96 98 Oxygen Delivery Nasal Cannula
--- NOTE | 2022-03-27 12:10 | PM.IMPN ---
Progress Note: A&P Assessment and Plan (1) Acute respiratory failure with hypoxia: Code(s): J96.01 - Acute respiratory failure with hypoxia Status: Acute Assessment and Plan: Multifactorial - pneumonia, COVID19 and COPD. Continues to require oxygen for adequate oxygen saturation. Will work to wean oxygen as she tolerates. Continue nebulizer treatments and Pulmozyme. Mucinex also scheduled. (2) Pneumonia due to COVID-19 virus: Code(s): U07.1 - COVID-19; J12.82 - Pneumonia due to coronavirus disease 2019 Status: Acute Assessment and Plan: Initial COVID swab was negative on admission. This was repeated on 03/19 and was positive. Remdesivir and dexamethasone started. Continue treatment until discharge. continue isolation. Wean oxygen as tolerated. (3) Pneumonia: Code(s): J18.9 - Pneumonia, unspecified organism Status: Acute Assessment and Plan: Patient was admitted on March 10 with CXR showing pulmonary opacities initially treated with cefepime and azithromycin. COVID initially was negative. Leukocytosis worsened and patient without improvement. Imipenem and vancomycin started 03/15/22. COVID19 positive 03/19/22. Imipenem and vancomycin discontinued 03/21/22. WBC normalized on 03/22. Completed a course of abx. WBC higher realted to steroids. (4) Atrial fibrillation with rapid ventricular response: Code(s): I48.91 - Unspecified atrial fibrillation Status: Acute Assessment and Plan: Echo showed an EF of 55-60% With 1.5 cm echodense mass attached to or within the intra-atrial septum. CTA negative for PE. Rate controlled on metoprolol. Continue Apixaban for stroke prophylaxis. discussed with cardiology felt the echodense mass was a spurious finding and no further workup required this time. (5) COPD (chronic obstructive pulmonary disease): Code(s): J44.9 - Chronic obstructive pulmonary disease, unspecified Status: Acute Assessment and Plan: As above. Appreciate pulmonology recommendations (6) FIFI (generalized anxiety disorder): Code(s): F41.1 - Generalized anxiety disorder Status: Acute Assessment and Plan: Mood stable. Stable off alprazolam. (7) Benign essential HTN: Code(s): I10 - Essential (primary) hypertension Status: Acute Assessment and Plan: Controlled. Continue lisinopril and metoprolol. (8) Diabetes mellitus: Code(s): E11.9 - Type 2 diabetes mellitus without complications Status: Acute Assessment and Plan: A1c 8.2. -metformin, -Continue Accu-Cheks and intensive sliding scale insulin (9) Hyponatremia: Code(s): E87.1 - Hypo-osmolality and hyponatremia Status: Acute Assessment and Plan: Resolved. (10) Lung nodule: Code(s): R91.1 - Solitary pulmonary nodule Status: Acute Assessment and Plan: CT chest shows nodule in left lung lower lobe suspicious for primary bronchogenic carcinoma. Noncontrast low-dose chest CT is recommended in 3 months. Subjective Date/time seen: 03/27/22 12:10 Interval history: 86yo female with DM, HTN and COPD here for SOB and found to have COVID PNA and acute respiratory failure. Assuming care. Chart reviewed. She denies shortness of breath or chest pain. She does have dyspnea on exertion when working with therapy. She has been up to the chair. Cough is productive brown sputum. Exam Narrative: AF 97.7 119/87 98 18 97% 3L Gen - NARD sitting up at the side of the bed Chest - distant but clear breath sounds. normal respiratory rate CV regular rate and rhythm. S1-S2. Telemetry showing atrial flutter. Abd - Soft. Nontender. Positive bowel sounds. - Tapia catheter secured draining clear yellow urine. Ext - No pedal edema Psych - Nml mood and affect Skin - Warm and dry Objective Data Vital Signs Vital Signs: Vital Signs - 24
[2022-03-27 12:36] LABS: Glucose Point of Care 270 mg/dl (65-105)
[2022-03-27] MEDS: INSULIN ASPART (*BKC) 100 UNITS/ML SUB-Q ×2 (12:45→18:06)
[2022-03-27 17:49] LABS: Glucose Point of Care 270 mg/dl (65-105)
[2022-03-27] MEDS: SODIUM CHLORIDE NASAL GEL 14.1 GM 1 APPLIC NASAL (20:44)
[2022-03-27] MEDS: diphenhydrAMINE HCl CAP 25 MG CAPSULE 50 MG PO (20:44)
[2022-03-27 21:45] LABS: Glucose Point of Care 213 mg/dl (65-105)
[2022-03-28] VITALS (24 sets, daily range): BP systolic 105–126; BP diastolic 52–71; PULSE 64–106; RESP 16–20; TEMP 36.4–37.1; O2SAT 87–97
[2022-03-28 05:26] LABS: Basophils Percent Auto 0.2 % (0.2-1.2); Eosinophils Absolute Auto 0.1 K/mm3 (0-0.3); Eosinophils Percent Auto 0.6 % (0-4.4); Hematocrit 38.9 % (37.0-47.0); Hemoglobin 12.2 g/dL (12.0-15.0); Immature Granulocyte Absolute 0.25 K/mm3 (0.00-0.031); Immature Granulocyte Percent A 1.4 % (0-0.5); Lymphocytes Absolute Auto 1.15 K/mm3 (0.9-3.2); Lymphocytes Percent Auto 6.6 % (18.3-44.2); Mean Corpuscular HGB Conc 31.4 g/dl (32-36); Mean Corpuscular Hemoglobin 30.4 pg (26-34); Mean Platelet Volume 10.5 fl (7.4-10.4); Monocytes Percent Auto 5.6 % (2.6-8.5); Neutrophils Absolute Auto 14.9 K/mm3 (1.3-6.7); Neutrophils Percent Auto 85.6 % (45.5-73.1); Platelet Count Result 335 k/mm3 (150-375); Red Blood Count 4.01 M/mm3 (4.2-5.4); Red Cell Distribution Width 14.3 % (11.5-14.5); White Blood Count 17.4 K/mm3 (4.5-10.0)
[2022-03-28 05:34] LABS: INR 1.8; Prothrombin Time 20.7 Seconds (11.1-14.7)
[2022-03-28 05:43] LABS: Alanine Aminotransferase 28 U/L (6-35); Albumin Level 2.5 g/dL (3.5-5.1); Alkaline Phosphatase 129 U/L (38-126); Anion Gap 0 mmol/L (8-16); Aspartate Amino Transferase 30 U/L (14-36); Bilirubin,Total 0.9 mg/dL (0.2-1.3); Blood Urea Nitrogen 24 mg/dL (7-17); Calcium 8.2 mg/dL (8.4-10.2); Carbon Dioxide 38 mmol/L (22-30); Chloride 96 mmol/L (98-107); Estimated CRCL calculation 36 ml/min; Estimated Glomerular Filt Rate 60; Glucose 87 mg/dL (65-110); Magnesium 1.9 mg/dL (1.6-2.3); Phosphorus 3.1 mg/dL (2.5-4.5); Potassium 3.8 mmol/L (3.4-5.0); Sodium 134 mmol/L (137-145)
[2022-03-28] MEDS: IPRATROPIUM BR 0.02% INH SOLN 0.5 MG/2.5 ML VIAL INHALATION ×4 (08:41→19:44)
[2022-03-28] MEDS: ALBUTEROL SULFATE NEB 2.5 MG/3 ML INH INHALATION ×4 (08:41→19:44)
[2022-03-28] MEDS: DORNASE ALFA INH SOLN 1 MG/ML 2.5 ML AMP 2.5 MG INHALATION ×2 (08:42→19:43)
[2022-03-28 09:05] LABS: Glucose Point of Care 96 mg/dl (65-105)
[2022-03-28] MEDS: metFORMIN HCL 500 MG TABLET PO ×2 (10:21→17:45)
[2022-03-28] MEDS: THERAPEUTIC MULTIVITAMINS/MINERALS TAB (*BKC) 1 TABLET PO (10:21)
[2022-03-28] MEDS: guaiFENesin 12 HR 600 MG TABCR PO ×2 (10:21→20:33)
[2022-03-28] MEDS: APIXABAN 5 MG TABLET PO ×2 (10:21→20:33)
[2022-03-28] MEDS: lisinopriL 5 MG TABLET PO (10:21)
[2022-03-28] MEDS: METOPROLOL TARTRATE 25 MG TABLET PO ×2 (10:21→20:33)
[2022-03-28] MEDS: FAMOTIDINE 20 MG TABLET PO ×2 (10:21→20:33)
[2022-03-28] MEDS: ATORVASTATIN 10 MG TABLET PO (10:22)
[2022-03-28] MEDS: REMDESIVIR 100 MG/NS 250 ML 100 MG/250 ML BAG 250 MG IVPB (10:22)
[2022-03-28 12:33] LABS: Glucose Point of Care 208 mg/dl (65-105)
--- NOTE | 2022-03-28 12:46 | PM.IMPN ---
Progress Note: A&P Assessment and Plan (1) Acute respiratory failure with hypoxia: Code(s): J96.01 - Acute respiratory failure with hypoxia Status: Acute Assessment and Plan: Multifactorial - pneumonia, COVID19 and COPD. Continues to require oxygen for adequate oxygen saturation. Will work to wean oxygen as she tolerates. Continue nebulizer treatments and Pulmozyme. Mucinex also scheduled. continue treatment for COVID. Home O2 evaluation in morning (2) Pneumonia due to COVID-19 virus: Code(s): U07.1 - COVID-19; J12.82 - Pneumonia due to coronavirus disease 2019 Status: Acute Assessment and Plan: Initial COVID swab was negative on admission. This was repeated on 03/19 and was positive. Remdesivir and dexamethasone started. Continue treatment until discharge. continue isolation. Wean oxygen as tolerated. (3) Pneumonia: Code(s): J18.9 - Pneumonia, unspecified organism Status: Acute Assessment and Plan: Patient was admitted on March 10 with CXR showing pulmonary opacities initially treated with cefepime and azithromycin. COVID initially was negative. Leukocytosis worsened and patient without improvement. Imipenem and vancomycin started 03/15/22. COVID19 positive 03/19/22. Imipenem and vancomycin discontinued 03/21/22. WBC normalized on 03/22. Completed a course of abx. WBC higher related to steroids. (4) Atrial fibrillation with rapid ventricular response: Code(s): I48.91 - Unspecified atrial fibrillation Status: Acute Assessment and Plan: Echo showed an EF of 55-60% With 1.5 cm echodense mass attached to or within the intra-atrial septum. CTA negative for PE. Rate controlled on metoprolol. Continue Apixaban for stroke prophylaxis. discussed with cardiology who felt the echodense mass was a spurious finding and no further workup required this time. (5) COPD (chronic obstructive pulmonary disease): Code(s): J44.9 - Chronic obstructive pulmonary disease, unspecified Status: Acute Assessment and Plan: As above. Appreciate pulmonology recommendations (6) FIFI (generalized anxiety disorder): Code(s): F41.1 - Generalized anxiety disorder Status: Acute Assessment and Plan: Mood stable. Stable off alprazolam. (7) Benign essential HTN: Code(s): I10 - Essential (primary) hypertension Status: Acute Assessment and Plan: Controlled. Continue lisinopril and metoprolol. (8) Diabetes mellitus: Code(s): E11.9 - Type 2 diabetes mellitus without complications Status: Acute Assessment and Plan: A1c 8.2. -metformin, -Continue Accu-Cheks and intensive sliding scale insulin (9) Hyponatremia: Code(s): E87.1 - Hypo-osmolality and hyponatremia Status: Acute Assessment and Plan: Resolved. (10) Lung nodule: Code(s): R91.1 - Solitary pulmonary nodule Status: Acute Assessment and Plan: CT chest shows nodule in left lung lower lobe suspicious for primary bronchogenic carcinoma. Noncontrast low-dose chest CT is recommended in 3 months. Subjective Date/time seen: 03/28/22 12:46 Interval history: 86yo female with DM, HTN and COPD here for SOB and found to have COVID PNA and acute respiratory failure. Patient denies chest pain, shortness of breath or dyspnea on exertion. Patient has been eating well. She has been able to get up to the bedside commode. She is working with therapy. Cough is productive johnson colored sputum Exam Narrative: AF 98.4 124/63 83 18 96% 3L Gen - NARD sitting up Chest - distant but clear breath sounds. normal respiratory rate CV - regular rate and rhythm. S1-S2. Telemetry showing atrial flutter. Abd - Soft. Nontender. Positive bowel sounds. Ext - No pedal edema Psych - Nml mood and affect Skin - Warm and dry Objective Data Vital Signs Vital Signs: Vital Signs - 24
[2022-03-28] MEDS: INSULIN ASPART (*BKC) 100 UNITS/ML SUB-Q ×2 (12:54→17:41)
--- NOTE | 2022-03-28 13:59 | HOMEO2EVAL ---
Evaluation was performed at [facility] Home Oxygen Evaluation RC: Home Oxygen (O2) Evaluation Start: 03/28/22 12:51 Freq: ONCE Status: Active Protocol: RPE Activity Type Activity Date Activity User E-sign Co-sign Detail Recorded Client Recorded Date Recorded By Document 03/28/22 13:10 ROSA M [email or web address] 03/28/22 13:59 ROSA M Document 03/28/22 13:15 ROSA M [email or web address] 03/28/22 13:59 ROSA M Document 03/28/22 13:18 ROSA M [email or web address] 03/28/22 13:59 [facility] Document 03/28/22 13:20 ROSA M [email or web address] 03/28/22 13:59 ROSA M 03/28/22 03/28/22 03/28/22 13:10 13:15 13:18 Home O2 Evaluation [Oxygen] -Test Phase Resting Resting Exercise -Oxygen Delivery Room Air Nasal Cannula Nasal Cannula -Oxygen Flow Rate (L/min) 2 2 [Pulse Oximetry] -Pulse Oximetry (90-100 %) 87 L 93 90 [Comments] -Home Oxygen Evaluation Comments PT REQUIRES 2 L HOME O2 AT REST AND WITH EXERTION [Charges] -Treatment Charges O2 Evaluation - Inpatient 03/28/22 13:20 Home O2 Evaluation [Oxygen] -Test Phase Resting -Oxygen Delivery Nasal Cannula -Oxygen Flow Rate (L/min) 2 [Pulse Oximetry] -Pulse Oximetry (90-100 %) 92 [Comments] -Home Oxygen Evaluation Comments [Charges] -Treatment Charges
--- NOTE | 2022-03-28 14:03 | HOMEO2EVAL ---
Evaluation was performed at [facility] Home Oxygen Evaluation RC: Home Oxygen (O2) Evaluation Start: 03/28/22 12:51 Freq: ONCE Status: Active Protocol: RPE Activity Type Activity Date Activity User E-sign Co-sign Detail Recorded Client Recorded Date Recorded By Document 03/28/22 13:10 ROSA M [email or web address] 03/28/22 13:59 ROSA M Document 03/28/22 13:15 ROSA M [email or web address] 03/28/22 13:59 ROSA M Document 03/28/22 13:16 ROSA M [email or web address] 03/28/22 14:03 ROSA M Document 03/28/22 13:18 ROSA M [email or web address] 03/28/22 13:59 ROSA M Document 03/28/22 13:19 ROSA M [email or web address] 03/28/22 14:03 ROSA M Document 03/28/22 13:20 ROSA M [email or web address] 03/28/22 13:59 ROSA M 03/28/22 03/28/22 03/28/22 13:10 13:15 13:16 Home O2 Evaluation [Oxygen] -Test Phase Resting Resting Resting -Oxygen Delivery Room Air Nasal Cannula Nasal Cannula -Oxygen Flow Rate (L/min) 2 3 [Pulse Oximetry] -Pulse Oximetry (90-100 %) 87 L 87 L 92 [Comments] -Home Oxygen Evaluation Comments [Charges] -Treatment Charges O2 Evaluation - Inpatient 03/28/22 03/28/22 03/28/22 13:18 13:19 13:20 Home O2 Evaluation [Oxygen] -Test Phase Exercise Exercise Resting -Oxygen Delivery Nasal Cannula Nasal Cannula Nasal Cannula -Oxygen Flow Rate (L/min) 3 4 3 [Pulse Oximetry] -Pulse Oximetry (90-100 %) 88 L 91 92 [Comments] -Home Oxygen Evaluation Comments PT REQUIRES 2 L HOME O2 AT REST AND WITH EXERTION [Charges] -Treatment Charges
--- NOTE | 2022-03-28 14:05 | HOMEO2EVAL ---
Evaluation was performed at [facility] Home Oxygen Evaluation RC: Home Oxygen (O2) Evaluation Start: 03/28/22 12:51 Freq: ONCE Status: Active Protocol: RPE Activity Type Activity Date Activity User E-sign Co-sign Detail Recorded Client Recorded Date Recorded By Document 03/28/22 13:10 ROSA M [email or web address] 03/28/22 13:59 ROSA M Document 03/28/22 13:15 ROSA M [email or web address] 03/28/22 13:59 ROSA M Document 03/28/22 13:16 ROSA M [email or web address] 03/28/22 14:03 ROSA M Document 03/28/22 13:18 ROSA M [email or web address] 03/28/22 13:59 ROSA M Document 03/28/22 13:19 ROSA M [email or web address] 03/28/22 14:03 ROSA M Document 03/28/22 13:20 ROSA M [email or web address] 03/28/22 13:59 ROSA M 03/28/22 03/28/22 03/28/22 13:10 13:15 13:16 Home O2 Evaluation [Oxygen] -Test Phase Resting Resting Resting -Oxygen Delivery Room Air Nasal Cannula Nasal Cannula -Oxygen Flow Rate (L/min) 2 3 [Pulse Oximetry] -Pulse Oximetry (90-100 %) 87 L 87 L 92 [Comments] -Home Oxygen Evaluation Comments [Charges] -Treatment Charges O2 Evaluation - Inpatient 03/28/22 03/28/22 03/28/22 13:18 13:19 13:20 Home O2 Evaluation [Oxygen] -Test Phase Exercise Exercise Resting -Oxygen Delivery Nasal Cannula Nasal Cannula Nasal Cannula -Oxygen Flow Rate (L/min) 3 4 3 [Pulse Oximetry] -Pulse Oximetry (90-100 %) 88 L 91 92 [Comments] -Home Oxygen Evaluation Comments PT REQUIRES 3 L HOME O2 AT REST AND 4 L WITH EXERTION [Charges] -Treatment Charges
--- NOTE | 2022-03-28 14:36 | PCRCNOTE ---
WILL ARRANGE HOME O2 WITH IV RESP CARE
[2022-03-28 17:29] LABS: Glucose Point of Care 367 mg/dl (65-105)
[2022-03-28] MEDS: diphenhydrAMINE HCl CAP 25 MG CAPSULE 50 MG PO (20:33)
[2022-03-28] MEDS: SODIUM CHLORIDE NASAL GEL 14.1 GM 1 APPLIC NASAL (20:35)
[2022-03-28 21:01] LABS: Glucose Point of Care 306 mg/dl (65-105)
[2022-03-29] VITALS (12 sets, daily range): BP systolic 104–145; BP diastolic 53–66; PULSE 72–102; RESP 16–22; TEMP 35.8–36.8; O2SAT 93–98
[2022-03-29 06:14] LABS: Hematocrit 36.8 % (37.0-47.0); Hemoglobin 11.9 g/dL (12.0-15.0); Mean Corpuscular HGB Conc 32.3 g/dl (32-36); Mean Corpuscular Hemoglobin 30.4 pg (26-34); Mean Corpuscular Volume 94.1 fl (80-100); Mean Platelet Volume 10.8 fl (7.4-10.4); Platelet Count Result 307 k/mm3 (150-375); Red Blood Count 3.91 M/mm3 (4.2-5.4); Red Cell Distribution Width 14.7 % (11.5-14.5); White Blood Count 20.1 K/mm3 (4.5-10.0)
[2022-03-29 06:28] LABS: Anion Gap 1 mmol/L (8-16); Blood Urea Nitrogen 24 mg/dL (7-17); Carbon Dioxide 34 mmol/L (22-30); Chloride 99 mmol/L (98-107); Estimated CRCL calculation 46 ml/min; Estimated Glomerular Filt Rate > 60; Glucose 125 mg/dL (65-110); Potassium 3.7 mmol/L (3.4-5.0); Sodium 134 mmol/L (137-145)
[2022-03-29 08:23] LABS: Glucose Point of Care 104 mg/dl (65-105)
[2022-03-29] MEDS: DORNASE ALFA INH SOLN 1 MG/ML 2.5 ML AMP 2.5 MG INHALATION (08:46)
[2022-03-29] MEDS: IPRATROPIUM BR 0.02% INH SOLN 0.5 MG/2.5 ML VIAL INHALATION ×3 (08:46→16:13)
[2022-03-29] MEDS: ALBUTEROL SULFATE NEB 2.5 MG/3 ML INH INHALATION ×3 (08:46→16:13)
[2022-03-29] MEDS: APIXABAN 5 MG TABLET PO (09:55)
[2022-03-29] MEDS: FAMOTIDINE 20 MG TABLET PO (09:55)
[2022-03-29] MEDS: metFORMIN HCL 500 MG TABLET PO (09:55)
[2022-03-29] MEDS: ATORVASTATIN 10 MG TABLET PO (09:55)
[2022-03-29] MEDS: guaiFENesin 12 HR 600 MG TABCR PO (09:56)
[2022-03-29] MEDS: lisinopriL 5 MG TABLET PO (09:56)
[2022-03-29] MEDS: THERAPEUTIC MULTIVITAMINS/MINERALS TAB (*BKC) 1 TABLET PO (09:58)
[2022-03-29] MEDS: METOPROLOL TARTRATE 25 MG TABLET PO (09:58)
[2022-03-29] MEDS: REMDESIVIR 100 MG/NS 250 ML 100 MG/250 ML BAG 250 MG IVPB (09:59)
[2022-03-29 11:50] LABS: Glucose Point of Care 273 mg/dl (65-105)
[2022-03-29] MEDS: INSULIN ASPART (*BKC) 100 UNITS/ML SUB-Q (12:41)
--- NOTE | 2022-03-29 14:22 | PM.DS ---
DS: Admitting Diagnosis Discharge Date 03/29/22 Admitting Diagnosis Shortness of breath DS: Discharge Diagnosis Discharge Diagnosis (1) Acute respiratory failure with hypoxia: Code(s): J96.01 - Acute respiratory failure with hypoxia Status: Acute (2) Pneumonia due to COVID-19 virus: Code(s): U07.1 - COVID-19; J12.82 - Pneumonia due to coronavirus disease 2019 Status: Acute (3) Pneumonia: Code(s): J18.9 - Pneumonia, unspecified organism Status: Acute (4) Atrial fibrillation with rapid ventricular response: Code(s): I48.91 - Unspecified atrial fibrillation Status: Acute (5) COPD (chronic obstructive pulmonary disease): Code(s): J44.9 - Chronic obstructive pulmonary disease, unspecified Status: Acute (6) FIFI (generalized anxiety disorder): Code(s): F41.1 - Generalized anxiety disorder Status: Acute (7) Benign essential HTN: Code(s): I10 - Essential (primary) hypertension Status: Acute (8) Diabetes mellitus: Code(s): E11.9 - Type 2 diabetes mellitus without complications Status: Acute (9) Hyponatremia: Code(s): E87.1 - Hypo-osmolality and hyponatremia Status: Acute (10) Lung nodule: Code(s): R91.1 - Solitary pulmonary nodule Status: Acute DS: Summary Hospital Course Reason for hospitalization: 86yo female with DM, HTN and COPD here for SOB and found to have COVID PNA and acute respiratory failure. Please see H&P for details. Hospital Course: Patient presents with shortness to acute respiratory felt to be multifactorial from pneumonia, COVID19 and COPD.? Initial COVID swab was negative on admission.? This was repeated on 03/19 and was positive. Remdesivir and dexamethasone started. Pulmonology was involved in her care. She completed a course of Decadron and Remdesivir. Patient was admitted on March 10 with CXR showing pulmonary opacities initially treated with cefepime and azithromycin.?Leukocytosis worsened and patient without improvement.? Imipenem and vancomycin started.? COVID19 positive 03/19.? Imipenem and vancomycin discontinued after completing treatment. WBC normalized. Continues to require oxygen for adequate oxygen saturation; she was refusing NIV at night toward the end of her hospitalization. Patient with new onset AFlutter. Echo showed an EF of 55-60%?with 1.5 cm echodense mass attached to or within the intra-atrial septum. CTA negative for PE.? Rate controlled on metoprolol. Continue Apixaban for stroke prophylaxis. Discussed with cardiology who felt the echodense mass was a spurious finding and no further workup required at this time. CT chest showed nodule in left lung lower lobe suspicious for primary bronchogenic carcinoma. Noncontrast low-dose chest CT is recommended in 3 months. She did well. She was started PT/OT and has been ambulating to the bathroom. She had a home O2 evaluation and found to require 3L with rest and 4L with activity. Patient overall did well and was able to be discharged home 03/29/2022. Status at Discharge Cognitive/behavioral status at discharge: stable Time Spent with Patient Time attestation: Total time spent providing and/or coordinating discharge services: 38 minutes Time spent: Greater than 30 minutes Exam Narrative: AF 96.5 104/53 100 20 93% 3L Gen - NARD Chest - distant but clear breath sounds. normal respiratory rate CV - regular rate and rhythm. S1-S2. Telemetry showing atrial flutter. Abd - Soft. Nontender. Positive bowel sounds. Ext - trace pedal edema. Negative Yasir's sign Psych - Nml mood and affect Skin - Warm and dry DS: Data Data Completed and Pending Labs on day of discharge: Labs from last 24 hours 03/29/22 03/29/22 03/29/22 11:38 08:11 05:21 WBC RBC Hgb Hct MCV MCH MCHC RDW Plt Count MPV Sodium 134 L Potassium 3.7 Chloride 99 Carbon Dioxide
--- NOTE | 2022-03-29 18:18 | PC.NURSE ---
call to home O2 company to confirm that oxygen was being delivered and family had correct info
== END 2022-03-29 17:15 | disposition home health service (06) | DRG 193 ==
LOC: ANHED 18:32 → ANH3MEDSUR 18:44 → ANHIMU 19:06 → ANH2MED 03-16 15:58
PROVIDERS: Emergency Medicine; Family Medicine; Internal Medicine; Internal Medicine Pulmonary Disease; Nurse Practitioner; Student in an Organized Health Care Education/Training Program; Admitting Provider Chiropractor; Emergency Provider Emergency Medicine; PCP Family Medicine; Visit Provider Internal Medicine
DX: J18.9 Pneumonia, unspecified organism (principal); J96.01 Acute respiratory failure with hypoxia; U07.1 COVID-19; J96.02 Acute respiratory failure with hypercapnia; E87.1 Hypo-osmolality and hyponatremia; N17.9 Acute kidney failure, unspecified; I48.91 Unspecified atrial fibrillation; E78.5 Hyperlipidemia, unspecified; F41.1 Generalized anxiety disorder; E11.65 Type 2 diabetes mellitus with hyperglycemia; J43.1 Panlobular emphysema; I27.20 Pulmonary hypertension, unspecified; I11.0 Hypertensive heart disease with heart failure; I50.810 Right heart failure, unspecified; E87.5 Hyperkalemia; R91.1 Solitary pulmonary nodule; Z66 Do not resuscitate; Z87.891 Personal history of nicotine dependence; Z79.84 Long term (current) use of oral hypoglycemic drugs; Z79.899 Other long term (current) drug therapy; Z88.0 Allergy status to penicillin
CPT/HCPCS: 36415; 36600; 71045; 71250; 71275; 80048; 80053; 80202; 81001; 82103; 82104; 82375; 82565; 82805; 82948; 83036; 83050; 83605; 83735; 83880; 84100; 84145; 84443; 84460; 84484; 85025; 85027; 85610; 86140; 87040; 87070; 87086; 87106; 87186; 87205; 87486; 87493; 87581; 87633; 87637; 93005; 94002; 94003; 94618; 94640; 94660; 94667; 94668; 94762; 96374; 97110; 97116; 97161; 97165; 97530; 97535; 99285; A9270; C8929; J0248; J0456; J0696; J0743; J1100; J1160; J1650; J1815; J1940; J2060; J2270; J2920; J3370; J7030; Q9957; Q9967; U0003; U0005

== ENCOUNTER 2022-05-24 14:47 | Outpatient (CLI) | payer MEDICARE, BC, SELFPAY ==
[2022-05-24 15:53] LABS: Alanine Aminotransferase 32 U/L (6-35); Albumin Level 3.6 g/dL (3.5-5.1); Alkaline Phosphatase 101 U/L (38-126); Anion Gap 5 mmol/L (8-16); Aspartate Amino Transferase 32 U/L (14-36); Bilirubin,Total 0.6 mg/dL (0.2-1.3); Blood Urea Nitrogen 20 mg/dL (7-17); Carbon Dioxide 39 mmol/L (22-30); Chloride 95 mmol/L (98-107); Estimated Glomerular Filt Rate > 60; Glucose 198 mg/dL (65-110); Potassium 4.4 mmol/L (3.4-5.0); Sodium 139 mmol/L (137-145)
[2022-05-24 16:28] LABS: Hemoglobin A1C 6.7 % (<5.7)
[2022-05-24 16:31] LABS: Iron 45 ug/dL (37-170)
[2022-05-24 16:40] LABS: Percent Iron Saturation 15 % (20-50)
== END 2022-05-24 14:48 | disposition home or self-care (01) ==
PROVIDERS: PCP Family Medicine; Visit Provider Family Medicine
DX: E03.9 Hypothyroidism, unspecified (principal); D64.9 Anemia, unspecified; E11.9 Type 2 diabetes mellitus without complications; I10 Essential (primary) hypertension
CPT/HCPCS: 36415; 80053; 83036; 83540; 83550; 84443

== ENCOUNTER 2022-05-31 20:43 | Inpatient (IN) | payer MEDICARE, BC, SELFPAY ==
--- NOTE | ~2022-05-31 | XR_ITS ---
EXAMINATION: XR chest 1V portable DATE: 06/05/2022 08:50 INDICATION: Shortness of breath. TECHNIQUE: A single frontal view of the chest was obtained. COMPARISON: Chest single view 06/04/2022 FINDINGS: There are small right and moderate-sized left pleural effusions. There are airspace opaciti es in right lower lung zone and left mid and lower lung zones. There is a diffuse interstitial patter n in the lungs. No pneumothorax. Cardiomegaly is noted. IMPRESSION: 1. Diffuse lung disease with mild improvement in left upper lobe, consistent with pulmonary edema and basilar atelectasis versus pneumonia superimposed on emphysema. 2. Small right and moderate-sized left pleural effusions with worsening on the left. 3. Cardiomegaly. Reviewed, dictated and finalized at location A. CELL TECHNICIAN IMPRESSION: 1. Diffuse lung disease with mild improvement in left upper lobe, consistent wi th pulmonary edema and basilar atelectasis versus pneumonia superimposed on emp hysema. 2. Small right and moderate-sized left pleural effusions with worsening on the left. 3. Cardiomegaly.
--- NOTE | ~2022-05-31 | XR_ITS ---
EXAMINATION: XR chest 1V portable DATE: 06/04/2022 09:26 INDICATION: Hypoxia. TECHNIQUE: A single frontal view of the chest was obtained. COMPARISON: Chest single view 06/01/2022, chest CT 03/20/2022 FINDINGS: There are small pleural effusions. There is a diffuse interstitial pattern in the lungs. Th ere are airspace opacities in all lung zones bilaterally, left worse than right. A calcified left elicia g nodule is consistent with old granulomatous disease. No pneumothorax. Cardiomegaly is noted. IMPRESSION: 1. Diffuse lung disease with worsening in left upper lobe, consistent with pulmonary edema versus pne umonia superimposed on emphysema. 2. Small pleural effusions with improvement on the right. 3. Cardiomegaly. Reviewed, dictated and finalized at location A. SPECIALIST IMPRESSION: 1. Diffuse lung disease with worsening in left upper lobe, consistent with pulm onary edema versus pneumonia superimposed on emphysema. 2. Small pleural effusions with improvement on the right. 3. Cardiomegaly.
--- NOTE | ~2022-05-31 | XR_ITS ---
EXAMINATION: XR chest 1V portable DATE: 05/31/2022 21:34 INDICATION: Shortness of breath. TECHNIQUE: A single frontal view of the chest was obtained. COMPARISON: Chest single view 03/27/2022, chest CT 03/20/2022 FINDINGS: There are small pleural effusions. There are airspace opacities in all lung zones bilateral ly with a peripheral predominance. A calcified left lung nodule and calcified left hilar and mediasti nal lymph nodes are consistent with old granulomatous disease. No pneumothorax. The heart size is nor mal. Surgical clips in the right upper quadrant are likely from cholecystectomy. IMPRESSION: 1. Diffuse lung disease, likely pneumonia without or with pulmonary edema superimposed on emphysema. 2. Small pleural effusions. 3. Cardiomegaly. Reviewed, dictated and finalized at location A. N MILL PRODUCTS INSPECTOR IMPRESSION: 1. Diffuse lung disease, likely pneumonia without or with pulmonary edema super imposed on emphysema. 2. Small pleural effusions. 3. Cardiomegaly.
--- NOTE | ~2022-05-31 | XR_ITS ---
XR chest 1V portable DATE: 06/01/2022 06:01 INDICATION: Shortness of breath, diabetes, hypertension, pneumonia TECHNIQUE: Portable upright AP chest on 10/29/2022 at 0531 hours COMPARISON: May 31, 2022 portable AP chest at 2131 hours FINDINGS: Cardiomegaly. Aortic calcification. There is pulmonary vascular congestion and redistribution. Patchy bilateral pulmonary infiltrates are noted, including particularly prominent infiltrate and/or atelectasis in the lower lung zones. Mild pleural effusions, increased since May 31, 2022. Osteopenia. Scoliosis and degenerative change of the thoracic and lumbar spine. IMPRESSION: Congestive changes, bilateral pulmonary infiltrates suggesting pulmonary edema, with part icular prominent atelectasis/consolidation in the lower lung zones, bilateral pleural effusions The congestive changes, infiltrates and pleural effusions are increased since May 31, 2022 Reviewed, dictated and finalized at location A. ER MAINTAINER IMPRESSION: Congestive changes, bilateral pulmonary infiltrates suggesting pulm onary edema, with particular prominent atelectasis/consolidation in the lower l raman zones, bilateral pleural effusions The congestive changes, infiltrates and pleural effusions are increased since [facility] 2022
--- NOTE | ~2022-05-31 | US_ITS ---
US venous doppler [facility] DATE: 06/01/2022 09:13 INDICATION: Swelling of the lower extremities TECHNIQUE: Real-time and color flow imaging and Doppler analysis of the veins of the lower extremitie s COMPARISON: None FINDINGS: The greater saphenous veins are patent. There is spontaneous and phasic flow and normal aug mentation and color flow signal and normal compression of the deep veins of both lower extremities. IMPRESSION: Reviewed, dictated and finalized at Location A. Reviewed, dictated and finalized at location A. RMATION SECURITY ENGINEER IMPRESSION:
[2022-05-31 20:47] VITALS: BP 143/62; PULSE 87; RESP 20; TEMP 36.6; O2SAT 98
--- NOTE | 2022-05-31 21:24 | ECG_ITS ---
Measurements Intervals [place] Rate: 86 P: CA: 0 QRS: 104 QRSD: 104 T: 240 QT: 348 QTc: 418 Interpretive Statements ATRIAL FIBRILLATION POSSIBLE RIGHT VENTRICULAR HYPERTROPHY NONSPECIFIC ST ABNORMALITY ABNORMAL ECG COMPARED TO ECG 03/11/2022 13:50:20 ATRIAL FIBRILLATION NOW PRESENT Electronically Signed On 06-03-2022 13:55:26 [employer]PERATOR/[employer]SISTANT [employer]EMAN by Petey Roberts M.D.
[2022-05-31 21:38] LABS: Basophils Percent Auto 0.3 % (0.2-1.2); Eosinophils Absolute Auto 0.1 K/mm3 (0-0.3); Eosinophils Percent Auto 0.7 % (0-4.4); Hematocrit 40.7 % (37.0-47.0); Hemoglobin 11.9 g/dL (12.0-15.0); Immature Granulocyte Absolute 0.08 K/mm3 (0.00-0.031); Immature Granulocyte Percent A 0.7 % (0-0.5); Lymphocytes Absolute Auto 1.58 K/mm3 (0.9-3.2); Lymphocytes Percent Auto 13.6 % (18.3-44.2); Mean Corpuscular HGB Conc 29.2 g/dl (32-36); Mean Corpuscular Volume 102.5 fl (80-100); Mean Platelet Volume 10.5 fl (7.4-10.4); Monocytes Absolute Auto 0.9 K/mm3 (0.1-0.6); Monocytes Percent Auto 7.5 % (2.6-8.5); Neutrophils Absolute Auto 8.9 K/mm3 (1.3-6.7); Neutrophils Percent Auto 77.2 % (45.5-73.1); Platelet Count Result 253 k/mm3 (150-375); Red Blood Count 3.97 M/mm3 (4.2-5.4); Red Cell Distribution Width 15.9 % (11.5-14.5); White Blood Count 11.6 K/mm3 (4.5-10.0)
[2022-05-31 21:45] LABS: INR 1.1; Prothrombin Time 14.1 Seconds (11.1-14.7)
[2022-05-31 21:46] LABS: Alanine Aminotransferase 26 U/L (6-35); Albumin Level 3.5 g/dL (3.5-5.1); Alkaline Phosphatase 111 U/L (38-126); Aspartate Amino Transferase 35 U/L (14-36); Bilirubin,Total 0.6 mg/dL (0.2-1.3); Blood Urea Nitrogen 24 mg/dL (7-17); Calcium 8.7 mg/dL (8.4-10.2); Carbon Dioxide > 40 mmol/L (22-30); Chloride 88 mmol/L (98-107); Estimated CRCL calculation 59 ml/min; Estimated Glomerular Filt Rate > 60; Glucose 222 mg/dL (65-110); Potassium 3.1 mmol/L (3.4-5.0); Sodium 137 mmol/L (137-145)
[2022-05-31 21:47] VITALS: RESP 18
--- NOTE | 2022-05-31 21:54 | ED.GENADULT ---
HPI - General Adult General Chief complaint: Extremity Problem,Nontraumatic Stated complaint: weeping leg Time Seen by Provider: 05/31/22 21:19 Source: family Limitations: no limitations History of Present Illness HPI narrative: 86-year-old with a history of AF, COPD on home oxygen, hypertension, diabetes brought in with complaints of bilateral leg swelling and weeping since this morning , family reports that she started on Lasix 5 days ago. She complains of shortness of breath, no cough no chest pain no fever Related Data Home Medications Medication Instructions Recorded Confirmed alprazolam 1 mg tablet (Xanax) 1 mg PO DAILY PRN Anxiety 08/24/21 05/03/22 multivit with 1 tablet PO DAILY 08/24/21 05/03/22 [id number] 8 mg iron-400 mcg-300 mcg tablet (Centrum Silver Women) Allergies Allergy/AdvReac Type Severity Reaction Status Date / Time aspirin Allergy Intermediate Out of Verified 05/31/22 20:54 body experience vitamin E (d-alpha Allergy Intermediate Can't walk Verified 05/31/22 20:54 tocopherol) Penicillins Allergy Mild Hives Verified 05/31/22 20:54 Review of Systems ENT: Reports system reviewed and no additional complaints, except as documented Cardiovascular: Cardiovascular: Reports no additional cardiovascular complaints Respiratory: Respiratory: Reports no additional respiratory complaints Genitourinary: Genitourinary: Reports no additional female genitourinary complaints Musculoskeletal: Musculoskeletal: Reports as per HPI Neurologic: Reports system reviewed and no additional complaints, except as documented Psychiatric: Psychiatric: Reports no additional psychiatric complaints [facility] Past Medical History Medical History Benign essential HTN Breast cancer in female COPD (chronic obstructive pulmonary disease) Diabetes mellitus FIFI (generalized anxiety disorder) Hyperlipidemia Tobacco abuse Surgical History Surgical History History of lumpectomy of left breast History of lumpectomy of right breast Hx laparoscopic cholecystectomy Family History Family History Unknown Unknown family medical history Social History Social History Social History: to jf. She has 3 children. She is retired. He is a former smoker Code status full code Smoking packs per day: 1 Smoking cigarettes per day: 20.0 Years smoked: 60 Smoking pack-years: 60.00 Smoking status: Former smoker Tobacco type: cigarettes Second hand tobacco smoke exposure: No Smoking end date: 04/07/14 Alcohol intake: never Substance use: never Substance use type: does not use Lack of Transportation: No Lack of Food: Never True Current Housing: I Have Housing Concerned About Future Housing: No Difficulty Paying Gas/Electric Bills: No Difficulty Paying for Meds: No Currently Unemployed: No Education: Decline to Answer Difficulty w/ Childcare or Family Care: No Living arrangements: with family Occupation/Education: retired Gender identity (if verbalized by the patient): Female Sexual Orientation (if Verbalized by the Patient): Straight or Heterosexual Spiritual care concerns: No Exam Narrative: GENERAL: ill l-appearing, and in no acute distress. HEAD: Normocephalic, atraumatic. EYES: PERRLA and EOMI. ENT: Nares clear, no rhinorrhea or epistaxis. Mucous membranes moist. NECK: Supple. CHEST: Clear to auscultation. No respiratory distress. HEART: Regular rate and rhythm. No murmur heard. Normal peripheral pulses. ABDOMEN: Soft, nontender, nondistended.. EXTREMITIES: Normal range of motion. 3 + edema SKIN: Warm, dry, no rash. NEURO: No focal deficits. Alert and oriented x3. PSYCH: Normal mood and affect. Course Course
[2022-05-31 21:56] LABS: NT Pro B Type Natriuretic Pept 2260 pg/mL (19.9-100); Troponin I < 0.012 ng/mL (0.000-0.034)
--- NOTE | 2022-05-31 22:02 | PM.IMHP ---
H&P: HPI History of Present Illness Date/Time: 05/31/22 22:02 Chief Complaint: LEG SWELLING Narrative: This is an 86-year-old female with past medical history significant for COPD,/emphysema con a, chronic hypoxic respiratory failure on 4 L of oxygen by nasal cannula at home, COVID-19 pneumonia, atrial fibrillation, former tobacco user, type 2 diabetes mellitus. Patient comes to the emergency room for evaluation due to worsening bilateral lower extremity edema, shortness of breath at minimal exertion, low pulse oxygenation in spite of using her 4 L of oxygen by nasal cannula, poor appetite, poor oral intake, cough, nonproductive of sputum, chest congestion, PND, orthopnea, patient denies fevers rigors or chills feels fatigued, weak overall. Preliminary workup was significant for tested negative for COVID-19, influenza type A, influenza type B, a chest x-ray was reported as: FINDINGS: There are small pleural effusions. There are airspace opacities in all lung zones bilaterally with a peripheral predominance. A calcified left lung nodule and calcified left hilar and mediastinal lymph nodes are consistent with old granulomatous disease. No pneumothorax. The heart size is normal. Surgical clips in the right upper quadrant are likely from cholecystectomy. IMPRESSION: 1. Diffuse lung disease, likely pneumonia without or with pulmonary edema superimposed on emphysema. 2. Small pleural effusions. 3. Cardiomegaly. Review of Systems Review of Systems: Worsening bilateral lower extremity swelling, shortness of breath, desaturation, orthopnea, cough, generalized weakness, poor oral intake, poor appetite. Constitutional: Constitutional: Denies chills, Reports fatigue, Denies fever(s), Reports lethargy and Reports weakness Eyes: Eyes: Denies change in vision ENT: Denies dysphagia and Denies odynophagia Cardiovascular: Cardiovascular: Denies chest pain, Denies irregular heart rhythm, Reports leg edema, Denies lightheadedness and Denies radiating jaw, neck or arm pain Respiratory: Respiratory: Reports chest congestion, Reports cough and Reports dyspnea Gastrointestinal: Gastrointestinal: Denies abdominal pain, Denies dyspepsia, Denies heartburn, Denies diarrhea, Denies nausea and Denies vomiting Genitourinary: Genitourinary: Reports no additional female genitourinary complaints and Reports as per HPI Musculoskeletal: Musculoskeletal: Reports other (Leg swelling) Integumentary/Breasts: Skin/Breast: Reports other (Skin blistering and in legs slough off) Neurologic: Denies focal weakness and Denies Sensory deficit (Neuro) Psychiatric: Psychiatric: Reports no additional psychiatric complaints and Reports as per HPI Endocrine: Endocrine: Denies cold intolerance, Denies flushing, Denies heat intolerance, Denies polyphagia, Denies polydipsia and Denies palpitations Hematologic/Lymphatic: Hematologic/Lymphatic: Reports no additional hematologic/lymphatic complaints and Reports as per HPI Allergic/Immunologic: Allergic/Immunologic: Reports no additional allergic/immunologic complaints and Reports as per HPI PMFSH Past Medical History Medical History Benign essential HTN Breast cancer in female COPD (chronic obstructive pulmonary disease) Diabetes mellitus FIFI (generalized anxiety disorder) Hyperlipidemia Tobacco abuse Surgical History Surgical History History of lumpectomy of left breast History of lumpectomy of right breast Hx laparoscopic cholecystectomy Family History Family History Unknown Unknown family medical history Social History Social History Social History: to jf. She has 3 children. She is retired. He is a former smoker Code status full code Smoking packs per day: 1 Smoking cigarettes per day:
[2022-05-31 22:32] LABS: Potassium 3.1 mmol/L (3.4-5.0)
[2022-05-31] MEDS: POTASSIUM CHLORIDE 20 MEQ PACKET (FOR LIQUID) 40 MEQ PO (22:38)
[2022-05-31] MEDS: FUROSEMIDE INJ 40 MG/4 ML VIAL IV PUSH (22:38)
[2022-05-31 23:19] VITALS: BP 142/79; PULSE 84; RESP 18; TEMP 36.6; O2SAT 96
[2022-06-01] VITALS (13 sets, daily range): BP systolic 131–146; BP diastolic 66–81; PULSE 79–94; RESP 18–21; TEMP 35.8–37.2; O2SAT 96–99; BMI 23.8
[2022-06-01 00:33] LABS: Influenza A QL RT-PCR Negative (Negative); Influenza B QL RT-PCR Negative (Negative); SARS-CoV-2 RNA PCR Negative
--- NOTE | 2022-06-01 04:42 | ADMGEN ---
This patient, Amira Myers, was admitted to Medical Room 348-01. Patient/family oriented to hospital policies and general routines including ID bracelet, bed and alarms, visiting hours, pain management, procedures, bathroom and other care routines, personal items, smoking policy, room service/diet, and visiting hours. Information on how to activate the Rapid Response Team has been discussed. Patient/Family are encouraged to report perceived risks to care and to ask questions if they do not understand what they are told or what they should do.
[2022-06-01 07:03] LABS: Blood Urea Nitrogen 19 mg/dL (7-17); Calcium 8.7 mg/dL (8.4-10.2); Carbon Dioxide > 40 mmol/L (22-30); Chloride 87 mmol/L (98-107); Estimated CRCL calculation 52 ml/min; Estimated Glomerular Filt Rate > 60; Glucose 138 mg/dL (65-110); Potassium 3.1 mmol/L (3.4-5.0); Sodium 140 mmol/L (137-145)
[2022-06-01 08:12] LABS: Glucose Point of Care 157 mg/dl (65-105)
[2022-06-01] MEDS: FUROSEMIDE INJ 40 MG/4 ML VIAL IV PUSH ×2 (09:21→22:44)
[2022-06-01 11:54] LABS: Glucose Point of Care 190 mg/dl (65-105)
[2022-06-01] MEDS: GLIMEPIRIDE 2 MG TABLET PO (13:15)
[2022-06-01] MEDS: APIXABAN 5 MG TABLET PO ×2 (13:15→22:45)
[2022-06-01 13:16] LABS: Basophils Percent Auto 0.2 % (0.2-1.2); Hematocrit 42.1 % (37.0-47.0); Hemoglobin 12.3 g/dL (12.0-15.0); Immature Granulocyte Absolute 0.13 K/mm3 (0.00-0.031); Lymphocytes Absolute Auto 0.94 K/mm3 (0.9-3.2); Lymphocytes Percent Auto 7.3 % (18.3-44.2); Mean Corpuscular HGB Conc 29.2 g/dl (32-36); Mean Corpuscular Hemoglobin 30.2 pg (26-34); Mean Corpuscular Volume 103.4 fl (80-100); Mean Platelet Volume 10.7 fl (7.4-10.4); Monocytes Absolute Auto 0.8 K/mm3 (0.1-0.6); Monocytes Percent Auto 6.2 % (2.6-8.5); Neutrophils Absolute Auto 11.1 K/mm3 (1.3-6.7); Neutrophils Percent Auto 85.3 % (45.5-73.1); Platelet Count Result 261 k/mm3 (150-375); Red Blood Count 4.07 M/mm3 (4.2-5.4)
[2022-06-01 13:28] LABS: Alanine Aminotransferase 27 U/L (6-35); Albumin Level 3.6 g/dL (3.5-5.1); Alkaline Phosphatase 93 U/L (38-126); Aspartate Amino Transferase 36 U/L (14-36); Bilirubin,Total 0.8 mg/dL (0.2-1.3); Blood Urea Nitrogen 20 mg/dL (7-17); Calcium 8.4 mg/dL (8.4-10.2); Carbon Dioxide > 40 mmol/L (22-30); Chloride 85 mmol/L (98-107); Estimated CRCL calculation 62 ml/min; Estimated Glomerular Filt Rate > 60; Glucose 192 mg/dL (65-110); Potassium 3.4 mmol/L (3.4-5.0); Sodium 136 mmol/L (137-145)
--- NOTE | 2022-06-01 16:32 | PM.IMPN ---
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, does not appear to be in an exacerbation, continue home meds (3) Physical debility: Code(s): R53.81 - Other malaise Status: Acute Assessment and Plan: PT/OT (4) FIFI (generalized anxiety disorder): Code(s): F41.1 - Generalized anxiety disorder Status: Acute Assessment and Plan: Stable, continue home meds (5) Benign essential HTN: Code(s): I10 - Essential (primary) hypertension Status: Acute Assessment and Plan: Stable (6) Diabetes mellitus: Code(s): E11.9 - Type 2 diabetes mellitus without complications Status: Acute Assessment and Plan: Accu-Cheks with sliding scale insulin, check A1c Plan DVT prophylaxis with Eliquis GI prophylaxis with Pepcid Code status full code, would recommend DNR, will discuss with family tomorrow Subjective Date/time seen: 06/01/22 16:32 Interval history: No overnight events noted. No chest pain. No nausea, vomiting or diarrhea. No fevers or chills. Patient has been on home O2 since , quite short of breath at this time. Review of Systems Review of Systems: 12 point review of systems was assessed and was negative except as noted in the HPI Exam Narrative: General: No acute distress, alert and oriented per baseline HEENT: Atraumatic, normocephalic, mucous membranes moist CV: Regular rate and rhythm, S1, S2 Lungs: Diminished air entry throughout, some scattered wheezes noted Abdomen: Soft, nontender, nondistended Extremities: Normal to inspection Skin: No rashes noted, no lesions or wounds seen Psych: Euthymic, normal affect Objective Data Vital Signs Vital Signs: Vital Signs - 24 hr 05/31/22 20:47 05/31/22 21:47 05/31/22 23:19 Temperature 97.9 F 97.9 F Pulse Rate 87 84 Respiratory Rate 20 18 18 Blood Pressure 143/62 H 142/79 H Pulse Oximetry 98 96 Oxygen Delivery Nasal Cannula Oxygen Flow Rate 4 06/01/22 02:44 06/01/22 03:59 06/01/22 04:00 Temperature 98.9 F 98.9 F 97.6 F Pulse Rate 79 79 92 Respiratory Rate 21 H 18 20 Blood Pressure 131/69 131/81 133/69 Pulse Oximetry 99 99 96 Oxygen Delivery Oxygen Flow Rate 06/01/22 05:25 06/01/22 09:20 06/01/22 07:50 Temperature 97.7 F Pulse Rate 94 94 Respiratory Rate 20 20 Blood Pressure 135/73 Pulse Oximetry 97 97 97 Oxygen Delivery Nasal Cannula Nasal Cannula Oxygen Flow Rate 4 4 06/01/22 14:00 Temperature 96.5 F L Pulse Rate 87 Respiratory Rate 20 Blood Pressure 146/66 H Pulse Oximetry 97 Oxygen Delivery Oxygen Flow Rate Intake/Output Intake/Output: Intake & Output 05/29/22 05/30/22 05/31/22 06/01/22 23:59 23:59 23:59 23:59 Intake Total 480 Balance 480 Meds/Results Medications: Active Medications Generic Name Dose Route Start Last Admin Trade Name Freq PRN Reason Stop Dose Admin Acetaminophen 650 mg 05/31/22 22:13 Acetaminophen 325 Mg Tablet PO Q4H PRN Mild Pain (1-3) or Fever Albuterol 2.5 mg 06/01/22 02:00 06/01/22 13:50 Albuterol Sulfate Neb 2.5 Mg/3 Ml Inh INHALATION Not Given Q6HRT SANTO Albuterol 2 puff 06/01/22 12:23 Albuterol Sulfate (*Sp) Aerosol 1 Puff INHALATION QID PRN shortness of breath or wheezing Alprazolam 1 mg
[2022-06-01 16:51] LABS: Glucose Point of Care 135 mg/dl (65-105)
[2022-06-01] MEDS: metFORMIN HCL 500 MG TABLET PO (17:30)
[2022-06-01] MEDS: guaiFENesin 12 HR 600 MG TABCR 1200 MG PO (17:30)
--- NOTE | 2022-06-01 19:47 | PM.CNPUL ---
Assessment and Plan Assessment and plan (1) COPD (chronic obstructive pulmonary disease): Code(s): J44.9 - Chronic obstructive pulmonary disease, unspecified Status: Acute Assessment and Plan: with exacerbation with worsening COPD, less likely pneumonia. Mild elevation in her white count, 11.6, improved. She did not want to have a noninvasive ventilator when this was offered in March.? She has pulmonary hypertension, last echo March 11 showed RVSP of 45 mmHg.? She has required oxygen since her COVID admission in March.? She may have residual post-COVID lung dysfunction superimposed on COPD,may benefit from PFTs 4-6 weeks after discharge. Continue Trelegy 100. Home O2 study before discharge. tral of Dornase estefania. (2) Chronic respiratory failure with hypoxia and hypercapnia: Code(s): J96.11 - Chronic respiratory failure with hypoxia; J96.12 - Chronic respiratory failure with hypercapnia Status: Acute Assessment and Plan: History of Present Illness History of Present Illness Consult date: 07/04/22 Requesting physician: Cheryl Fitzgerald DO Chief complaint: CHF/Leg Edema Narrative: patient was seen 06/01/2022 at 10:15; she asked me to come back tomorrow because she is tired. Patient was seen in consultation 06/02/2022 14:20, Friday. Her main complaint is left leg swelling, she denies shortness of breath now. NEW : Amira Myers is an 86-year-old woman with COPD, chronic respiratory failure on O2, admitted with bilateral leg edema and weeping. She was started on Lasix 5 days prior to admission. She was diagnosed with COVID in March, was admitted, went home on oxygen which was her first O2 prescription. She tells me that since she had COVID, she has had a lingering cough with thick sputum, difficult. She declined having a NPPV on the previous admission. She came in with swelling especially in the left leg with sleeping open lesions, redness and tenderness. She has had diuresis with improvement. She had progressive shortness of breath at home. SHe has improved since admission. DATA * 05/31/2022 - CXR ?Diffuse lung disease, likely pneumonia without or with pulmonary edema superimposed on emphysema. Small pleural effusions. Cardiomegaly. * echo March 11, 2022- ?Left ventricular chamber dimension is normal. Left ventricular systolic function is normal, estimated at 55-60%. There is mildly increased left ventricular wall thickness. Left ventricular septal wall motion is abnormal with septal motion related to bundle branch block. ? 5. Technically difficult study with limited views.? Definity contrast enhancement administered. ? 6. Right ventricular systolic function is reduced.? TAPSE 1.5.? Prominent moderator band. ? 7. Mild lipomatous hypertrophy of the interatrial septum. Suggestion of circumscribed 1.5 cm echodensity attached to or within the interatrial septum of uncertain clinical significance.? Recommend CT chest or HUBERT if clinically indicated. Review of Systems Review of Systems: All systems reviewed & are unremarkable except as noted in HPI and below PMFSH Past Medical History Medical History Benign essential HTN Breast cancer in female COPD (chronic obstructive pulmonary disease) Diabetes mellitus FIFI (generalized anxiety disorder) Hyperlipidemia Pulmonary hypertension Tobacco abuse Surgical History Surgical History History of lumpectomy of left breast History of lumpectomy of right breast Hx laparoscopic cholecystectomy Family History Family History Unknown Unknown family medical history Social History Social History
[2022-06-01 22:24] LABS: Glucose Point of Care 134 mg/dl (65-105)
[2022-06-01] MEDS: guaiFENesin 12 HR 600 MG TABCR PO (22:45)
[2022-06-01] MEDS: FAMOTIDINE 20 MG TABLET PO (22:45)
[2022-06-01] MEDS: METOPROLOL TARTRATE 25 MG TABLET PO (22:45)
[2022-06-02] VITALS (14 sets, daily range): BP systolic 104–134; BP diastolic 48–60; PULSE 79–97; RESP 18–22; TEMP 35.9–36.4; O2SAT 93–100
[2022-06-02 08:06] LABS: Basophils Percent Auto 0.2 % (0.2-1.2); Eosinophils Percent Auto 0.2 % (0-4.4); Hematocrit 39.9 % (37.0-47.0); Hemoglobin 11.6 g/dL (12.0-15.0); Immature Granulocyte Absolute 0.08 K/mm3 (0.00-0.031); Immature Granulocyte Percent A 0.6 % (0-0.5); Lymphocytes Absolute Auto 0.79 K/mm3 (0.9-3.2); Lymphocytes Percent Auto 6.3 % (18.3-44.2); Mean Corpuscular HGB Conc 29.1 g/dl (32-36); Mean Corpuscular Hemoglobin 29.9 pg (26-34); Mean Corpuscular Volume 102.8 fl (80-100); Mean Platelet Volume 10.3 fl (7.4-10.4); Monocytes Percent Auto 7.6 % (2.6-8.5); Neutrophils Absolute Auto 10.6 K/mm3 (1.3-6.7); Neutrophils Percent Auto 85.1 % (45.5-73.1); Platelet Count Result 250 k/mm3 (150-375); Red Blood Count 3.88 M/mm3 (4.2-5.4); Red Cell Distribution Width 15.7 % (11.5-14.5); White Blood Count 12.5 K/mm3 (4.5-10.0)
[2022-06-02] MEDS: THERAPEUTIC MULTIVITAMINS/MINERALS TAB (*BKC) 1 TABLET PO (08:11)
[2022-06-02] MEDS: ATORVASTATIN 10 MG TABLET PO (08:12)
[2022-06-02] MEDS: METOPROLOL TARTRATE 25 MG TABLET PO ×2 (08:13→20:49)
[2022-06-02] MEDS: APIXABAN 5 MG TABLET PO ×2 (08:13→20:49)
[2022-06-02] MEDS: lisinopriL 5 MG TABLET PO (08:13)
[2022-06-02] MEDS: metFORMIN HCL 500 MG TABLET PO ×2 (08:13→18:08)
[2022-06-02] MEDS: POLYSACCHARIDE IRON COMPLEX 150 MG CAPSULE PO (08:15)
[2022-06-02] MEDS: GLIMEPIRIDE 2 MG TABLET PO (08:15)
[2022-06-02] MEDS: FAMOTIDINE 20 MG TABLET PO ×2 (08:15→20:48)
[2022-06-02 08:19] LABS: Alanine Aminotransferase 27 U/L (6-35); Albumin Level 3.2 g/dL (3.5-5.1); Alkaline Phosphatase 77 U/L (38-126); Aspartate Amino Transferase 34 U/L (14-36); Bilirubin,Total 0.7 mg/dL (0.2-1.3); Blood Urea Nitrogen 19 mg/dL (7-17); Calcium 8.4 mg/dL (8.4-10.2); Carbon Dioxide > 40 mmol/L (22-30); Chloride 83 mmol/L (98-107); Estimated CRCL calculation 52 ml/min; Estimated Glomerular Filt Rate > 60; Glucose 93 mg/dL (65-110); Potassium 3.9 mmol/L (3.4-5.0); Sodium 138 mmol/L (137-145)
[2022-06-02] MEDS: FUROSEMIDE INJ 40 MG/4 ML VIAL IV PUSH ×2 (08:19→20:48)
[2022-06-02] MEDS: guaiFENesin 12 HR 600 MG TABCR PO (08:19)
[2022-06-02 08:41] LABS: Glucose Point of Care 115 mg/dl (65-105)
--- NOTE | 2022-06-02 09:00 | PM.IMPN ---
Progress Note: A&P Assessment and Plan (1) CHF (congestive heart failure): Qualifiers: Heart failure chronicity: acute on chronic Heart failure type: unspecified Qualified Code(s): I50.9 - Heart failure, unspecified Code(s): I50.9 - Heart failure, unspecified Status: Acute Assessment and Plan: Appears somewhat hypervolemic, will continue IV diuresis Cardiology consult pending Echo ordered and pending, last echo from March 2022 showed some abnormalities that may have progressed and are contributing to her current decomensation (2) Chronic respiratory failure with hypoxia and hypercapnia: Code(s): J96.11 - Chronic respiratory failure with hypoxia; J96.12 - Chronic respiratory failure with hypercapnia Status: Acute Assessment and Plan: End-stage COPD on chronic oxygen therapy, does not appear to be in an exacerbation, continue home meds (3) Physical debility: Code(s): R53.81 - Other malaise Status: Acute Assessment and Plan: PT/OT (4) FIFI (generalized anxiety disorder): Code(s): F41.1 - Generalized anxiety disorder Status: Acute Assessment and Plan: Stable, continue home meds (5) Benign essential HTN: Code(s): I10 - Essential (primary) hypertension Status: Acute Assessment and Plan: Stable (6) Diabetes mellitus: Code(s): E11.9 - Type 2 diabetes mellitus without complications Status: Acute Assessment and Plan: Accu-Cheks with sliding scale insulin, a1c 6.7 (7) Pulmonary hypertension: Code(s): I27.20 - Pulmonary hypertension, unspecified Status: Acute Assessment and Plan: Moderate per echo from 03/28, recheck echo pending Contributing to hypoxia Plan Discussed hospice with family and changing code status to DNR, family will think about it. Do not anticipate patient will return to full functional status anytime soon and will either need SNF at discharge or home with hospice. DVT prophylaxis with Eliquis GI prophylaxis with Pepcid Code status full code, would recommend DNR, will discuss with family again Subjective Date/time seen: 06/02/22 09:00 Interval history: No overnight events noted. No chest pain. No nausea, vomiting or diarrhea. No fevers or chills. She states her shortness of breath is improved at this time at rest, but her dyspnea with exertion is quite severe, even minimal exertion gets her out of breath. Daughter in laws in the room and states that the patient very rarely moves from her couch or chair due to shortness of breath and has been this way since almost [place]. Review of Systems Review of Systems: 12 point review of systems was assessed and was negative except as noted in the HPI Exam Narrative: General: No acute distress, alert and oriented per baseline HEENT: Atraumatic, normocephalic, mucous membranes moist CV: Regular rate and rhythm, S1, S2 Lungs: Diminished air entry throughout, minimal wheezing noted Abdomen: Soft, nontender, nondistended Extremities: 1+ pitting edema up to mid tibia on bilateral lower extremities, some venous stasis dermatitis noted, blotchy erythematous areas on left anterior and posterior lower extremity noted, significantly improved from yesterday Skin: Large area of excoriated skin on posterior left calf, no warmth or tenderness to palpation, no drainage or purulence or fluctuance Psych: Euthymic, normal affect Objective Data Vital Signs Vital Signs: Vital Signs - 24 hr 06/01/22 09:20 06/01/22 14:00 06/01/22 12:00 Temperature 96.5 F L Pulse Rate 94 87 94 Respiratory Rate 20 20 Blood Pressure 146/66 H Pulse Oximetry 97 97 Oxygen Delivery Nasal Cannula Oxygen Flow Rate 4 06/01/22 16:00 06/01/22 20:00 06/01/22 22:00 Temperature 97.6 F Pulse Rate 88 91 94 Respiratory Rate 20 Blood Pressure 136/66 Pulse Oximetry 98 Oxygen Delivery
[2022-06-02] MEDS: FLUTICASONE/UMECLIDIN/VILANTER 100-62.5-25 MCG ELLIPTA 1 PUFF INHALATION (09:29)
[2022-06-02 11:44] LABS: Glucose Point of Care 115 mg/dl (65-105)
[2022-06-02 16:50] LABS: Glucose Point of Care 173 mg/dl (65-105)
[2022-06-02] MEDS: DORNASE ALFA INH SOLN 1 MG/ML 2.5 ML AMP 2.5 MG INHALATION (19:53)
[2022-06-02] MEDS: guaiFENesin 12 HR 600 MG TABCR 1200 MG PO (20:48)
[2022-06-02 21:14] LABS: Glucose Point of Care 123 mg/dl (65-105)
[2022-06-03] VITALS (14 sets, daily range): BP systolic 106–123; BP diastolic 63–71; PULSE 77–104; RESP 18–22; TEMP 36.4–36.7; O2SAT 90–98
--- NOTE | 2022-06-03 | ECHO_ITS ---
Patient Info Name: Amira Myers Age: 86 years : 1935 Gender: Female Ht: 65 in Wt: 142 lbs BSA: 1.73 m2 HR: 91 bpm BP: 123 / 63 mmHg Heart Rhythm: Atrial Fibrillation Technical Quality: Fair Exam Date: 06/03/2022 12:30 PM Exam Location: [facility] Pulmonary Exam Room: 348 Patient Status: Inpatient Admit Date: 06/01/2022 Staff Ordering Physician: Cheryl Fitzgerald DO Stiff Leg Derrick Operator: Lana Wilkerson RDCS Attending Provider: Amy Cannon MD Referring Physician: Lia HOLDEN; Exam Type: CA echo doppler color flow Study Info Indications - sob Complete two-dimensional, color flow and Doppler transthoracic echocardiogram is performed. Summary 1. Complete two-dimensional, color flow and Doppler transthoracic echocardiogram is performed. 2. Left ventricular chamber dimension is normal. 3. Left ventricular systolic function is lower limits of normal, estimated at 50-55%. 4. There is mildly increased left ventricular wall thickness. 5. Left ventricular septal wall motion is abnormal with septal motion related to bundle branch block. 6. There is no aortic valve stenosis. 7. There is mild mitral valve regurgitation. 8. There is moderate tricuspid valve regurgitation. 9. Severe pulmonary hypertension, estimated pulmonary arterial systolic pressure is 63 mmHg. 10. Left pleural effusion. Left Ventricle Left ventricular chamber dimension is normal. Left ventricular systolic function is lower limits of normal, estimated at 50-55%. There is mildly increased left ventricular wall thickness. Left ventricular septal wall motion is abnormal with septal motion related to bundle branch block. Right Ventricle Right ventricular chamber dimension is normal. Right ventricular systolic function is normal. Left Atria Left atrial chamber dimension is mildly enlarged. Right Atria Right atrial chamber dimension is mildly enlarged. Aortic Valve The aortic valve is not well visualized. There is mild aortic valve sclerosis. There is no aortic valve stenosis. There is mild aortic valve regurgitation. Pulmonic Valve The pulmonic valve is not well visualized. Mitral Valve The mitral valve has thickened leaflets. There is mild mitral valve regurgitation. The mitral valve annulus is mildly calcified. Tricuspid Valve The tricuspid valve leaflets are normal. There is moderate tricuspid valve regurgitation. Severe pulmonary hypertension, estimated pulmonary arterial systolic pressure is 63 mmHg. Pericardium/Pleural The pericardium appears normal. There is small pericardial effusion. Left pleural effusion. Inferior Vena Cava Normal inferior vena cava with <50% collapse upon inspiration consistent with elevated right atrial pressure, 10 mmHg. Aorta The aortic root size at the sinus of Valsalva is normal. There is mild aortic atherosclerosis. Left Ventricular Outflow Tract Name Value Normal LVOT 2D LVOT Diameter 2.0 cm LVOT Doppler LVOT Peak Gradient 3 mmHg LVOT Mean Gradient 2 mmHg LVOT VTI
[2022-06-03 05:56] LABS: Basophils Percent Auto 0.3 % (0.2-1.2); Eosinophils Absolute Auto 0.1 K/mm3 (0-0.3); Eosinophils Percent Auto 0.7 % (0-4.4); Hemoglobin 12.1 g/dL (12.0-15.0); Immature Granulocyte Absolute 0.11 K/mm3 (0.00-0.031); Immature Granulocyte Percent A 0.9 % (0-0.5); Lymphocytes Absolute Auto 1.19 K/mm3 (0.9-3.2); Lymphocytes Percent Auto 10.2 % (18.3-44.2); Mean Corpuscular HGB Conc 29.5 g/dl (32-36); Mean Corpuscular Hemoglobin 30.6 pg (26-34); Mean Corpuscular Volume 103.5 fl (80-100); Mean Platelet Volume 10.7 fl (7.4-10.4); Monocytes Absolute Auto 1.1 K/mm3 (0.1-0.6); Neutrophils Absolute Auto 9.2 K/mm3 (1.3-6.7); Neutrophils Percent Auto 78.9 % (45.5-73.1); Platelet Count Result 257 k/mm3 (150-375); Red Blood Count 3.96 M/mm3 (4.2-5.4); Red Cell Distribution Width 15.8 % (11.5-14.5); White Blood Count 11.7 K/mm3 (4.5-10.0)
[2022-06-03 06:25] LABS: Alanine Aminotransferase 25 U/L (6-35); Albumin Level 3.3 g/dL (3.5-5.1); Alkaline Phosphatase 79 U/L (38-126); Aspartate Amino Transferase 42 U/L (14-36); Bilirubin,Total 0.7 mg/dL (0.2-1.3); Blood Urea Nitrogen 21 mg/dL (7-17); Calcium 8.3 mg/dL (8.4-10.2); Carbon Dioxide > 40 mmol/L (22-30); Chloride 82 mmol/L (98-107); Estimated CRCL calculation 52 ml/min; Estimated Glomerular Filt Rate > 60; Glucose 64 mg/dL (65-110); Potassium 2.7 mmol/L (3.4-5.0); Sodium 135 mmol/L (137-145)
[2022-06-03 06:56] LABS: Hypochromasia 1+ (NORMAL); Platelet Estimate Adequate (Adequate); Schistocytes None Seen (NORMAL)
[2022-06-03] MEDS: POTASSIUM CHLORIDE 20 MEQ TABLET 80 MEQ PO (07:03)
[2022-06-03 08:51] LABS: Glucose Point of Care 115 mg/dl (65-105)
[2022-06-03] MEDS: METOPROLOL TARTRATE 25 MG TABLET PO ×2 (09:15→20:31)
[2022-06-03] MEDS: GLIMEPIRIDE 2 MG TABLET PO (09:15)
[2022-06-03] MEDS: metFORMIN HCL 500 MG TABLET PO ×2 (09:15→18:07)
[2022-06-03] MEDS: POLYSACCHARIDE IRON COMPLEX 150 MG CAPSULE PO (09:16)
[2022-06-03] MEDS: THERAPEUTIC MULTIVITAMINS/MINERALS TAB (*BKC) 1 TABLET PO (09:16)
[2022-06-03] MEDS: FAMOTIDINE 20 MG TABLET PO ×2 (09:18→20:32)
[2022-06-03] MEDS: lisinopriL 5 MG TABLET PO (09:18)
[2022-06-03] MEDS: APIXABAN 5 MG TABLET PO ×2 (09:18→20:31)
[2022-06-03] MEDS: FUROSEMIDE INJ 40 MG/4 ML VIAL IV PUSH ×2 (09:18→20:31)
[2022-06-03] MEDS: guaiFENesin 12 HR 600 MG TABCR 1200 MG PO ×2 (09:18→20:32)
[2022-06-03] MEDS: ATORVASTATIN 10 MG TABLET PO (09:18)
[2022-06-03] MEDS: DORNASE ALFA INH SOLN 1 MG/ML 2.5 ML AMP 2.5 MG INHALATION (09:58)
[2022-06-03] MEDS: FLUTICASONE/UMECLIDIN/VILANTER 100-62.5-25 MCG ELLIPTA 1 PUFF INHALATION (09:58)
--- NOTE | 2022-06-03 11:03 | PM.CNCAR ---
Assessment and Plan Assessment and plan (1) Heart failure with preserved ejection fraction: Qualifiers: Heart failure chronicity: acute Qualified Code(s): I50.31 - Acute diastolic (congestive) heart failure Code(s): I50.30 - Unspecified diastolic (congestive) heart failure Status: Acute Assessment and Plan: Patient is documented preserved LV systolic function by echo 03/2022 EF 55-60% mild LVH mild RV hypokinesis. Initial troponin negative, pro BNP mildly elevated largely unchanged compared to 03/15/2022. -Need accurate input and output, daily weights to monitor response to therapy. -continue IV diuresis monitor volume status closely. Due to monitor electrolytes renal function very closely with aggressive potassium supplementation as appropriate. (2) Atrial fibrillation: Code(s): I48.91 - Unspecified atrial fibrillation Status: Acute Assessment and Plan: Persistent atrial fibrillation and prior documentation of atrial flutter maintained on systemic anticoagulation with Eliquis 5 mg twice daily. -Heart rate reasonably controlled on metoprolol 25 mg twice daily. Continue for now. Rate control strategy, conservative management. -Follow H&H, monitor for bleeding. -Repeat 12 lead ECG. -Continue telemetry monitoring (3) Hypokalemia: Code(s): E87.6 - Hypokalemia Status: Acute Assessment and Plan: Severe hypokalemia secondary to diuresis. Progress repletion keep potassium closer to 4.0. Repeat BMP. (4) COPD exacerbation: Code(s): J44.1 - Chronic obstructive pulmonary disease with (acute) exacerbation Status: Acute Assessment and Plan: Continue present management with trilogy, dornase, guaifenesin, O2 supplementation (5) Chronic respiratory failure with hypoxia and hypercapnia: Code(s): J96.11 - Chronic respiratory failure with hypoxia; J96.12 - Chronic respiratory failure with hypercapnia Status: Acute Assessment and Plan: Continue home O2 supplementation 4 L nasal cannula as appropriate. Bronchodilator therapy. Appreciate pulmonology involvement and recommendations. Comfort measures appear appropriate given patient's advanced age, comorbidities and end-stage COPD. Code status discussion with primary service pending. (6) Pulmonary hypertension: Code(s): I27.20 - Pulmonary hypertension, unspecified Status: Acute Assessment and Plan: Moderate pulmonary hypertension RVSP 45 mm Hg likely secondary to underlying lung disease and chronic hypoxic respiratory failure. (7) Benign essential HTN: Code(s): I10 - Essential (primary) hypertension Status: Acute Assessment and Plan: Controlled on present regimen. Continue lisinopril, metoprolol (8) Diabetes mellitus: Code(s): E11.9 - Type 2 diabetes mellitus without complications Status: Acute Assessment and Plan: Continue metformin, glimepiride. Management per primary service. 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 She was found to have hypoxia despite O2 and states he has been compliant with medications. She was also given oral Lasix prior to admission which he
[2022-06-03 12:11] LABS: Glucose Point of Care 132 mg/dl (65-105)
--- NOTE | 2022-06-03 15:50 | PM.IMPN ---
Progress Note: A&P Assessment and Plan (1) CHF (congestive heart failure): Qualifiers: Heart failure chronicity: acute on chronic Heart failure type: unspecified Qualified Code(s): I50.9 - Heart failure, unspecified Code(s): I50.9 - Heart failure, unspecified Status: Acute Assessment and Plan: Appears somewhat hypervolemic, will continue IV diuresis Cardiology consult appreciated Echo ordered and pending, last echo from March 2022 showed some abnormalities that may have progressed and are contributing to her current decomensation (2) Chronic respiratory failure with hypoxia and hypercapnia: Code(s): J96.11 - Chronic respiratory failure with hypoxia; J96.12 - Chronic respiratory failure with hypercapnia Status: Acute Assessment and Plan: End-stage COPD on chronic oxygen therapy, does not appear to be in an exacerbation, continue home meds Appreciate pulmonology consultation, recommendations are for Trelegy, albuterol as needed, home O2 eval and ApneaLink on home oxygen (3) Physical debility: Code(s): R53.81 - Other malaise Status: Acute Assessment and Plan: PT/OT (4) FIFI (generalized anxiety disorder): Code(s): F41.1 - Generalized anxiety disorder Status: Acute Assessment and Plan: Stable, continue home meds (5) Benign essential HTN: Code(s): I10 - Essential (primary) hypertension Status: Acute Assessment and Plan: Stable (6) Diabetes mellitus: Code(s): E11.9 - Type 2 diabetes mellitus without complications Status: Acute Assessment and Plan: Accu-Cheks with sliding scale insulin, a1c 6.7 (7) Pulmonary hypertension: Code(s): I27.20 - Pulmonary hypertension, unspecified Status: Acute Assessment and Plan: Moderate per echo from 03/28, recheck echo pending Contributing to hypoxia Plan Discussed hospice with family and changing code status to DNR, family will think about it. Do not anticipate patient will return to full functional status anytime soon and will either need SNF at discharge or home with hospice. DVT prophylaxis with Eliquis GI prophylaxis with Pepcid Code status full code, would recommend DNR, will discuss with family again Subjective Date/time seen: 06/03/22 15:50 Interval history: 06/01: No overnight events noted. No chest pain. No nausea, vomiting or diarrhea. No fevers or chills. She states her shortness of breath is improved at this time at rest, but her dyspnea with exertion is quite severe, even minimal exertion gets her out of breath. 06/02: Daughter in law in the room and states that the patient very rarely moves from her couch or chair due to shortness of breath and has been this way since almost Thanks. 06/03: No overnight events noted. No chest pain or shortness of breath. No nausea, vomiting or diarrhea. No fevers or chills. Patient states she feels about the same as yesterday. Review of Systems Review of Systems: 12 point review of systems was assessed and was negative except as noted in the HPI Exam Narrative: General: No acute distress, alert and oriented per baseline HEENT: Atraumatic, normocephalic, mucous membranes moist CV: Regular rate and rhythm, S1, S2 Lungs: Diminished air entry throughout, minimal wheezing noted Abdomen: Soft, nontender, nondistended Extremities: Trace pitting edema up to mid tibia on bilateral lower extremities, some venous stasis dermatitis noted, blotchy erythematous areas on left anterior and posterior lower extremity noted Skin: Large area of excoriated skin on posterior left calf, no warmth or tenderness to palpation, no drainage or purulence or fluctuance Psych: Euthymic, normal affect Objective Data Vital Signs Vital Signs: Vital Signs - 24 hr 06/02/22 16:00 06/02/22 19:55 06/02/22 19:56 Temperature Pulse Rate 88 96 Respiratory Rate 20
--- NOTE | 2022-06-03 15:59 | PM.PNPUL ---
Progress Note: A&P Assessment and Plan (1) COPD exacerbation: Code(s): J44.1 - Chronic obstructive pulmonary disease with (acute) exacerbation Status: Acute Assessment and Plan: She was admitted with worsening COPD, less likely pneumonia. She had mild elevation in her white count, 11.6, currently 12.5 without a left shift.? She did not want to have a noninvasive ventilator when this was offered in March.? She has pulmonary hypertension, last echo March 11 showed RVSP of 45 mmHg.? She has required oxygen since her COVID admission in March.? 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 She has her normal amount of cough and phlegm. She has been up to the chair and has no wheezing. Saturations on 4 L nasal cannula are 91%. White blood cell count is 11.7. continue trilogy 100-62.5-25, continue guaifenesin 1200 mg p.o. q.12 hours, I will discontinue dornase. I will order overnight oximetry on 4 L nasal cannula If the patient remains stable overnight she can be discharged on 06/04 on these pulmonary medications: Trelegy 100/62.5/25 at 1 puff q.day Rescue albuterol 2 puffs q.4 hours p.r.n. shortness of breath or wheezing Oxygen at rest and with ambulation per formal home O2 assessment which I have ordered today oxygen at night per overnight oximetry on 4 L nasal cannula. Discussed with Dr. Fitzgerald, will follow with you. Subjective Date/time seen: 06/03/22 15:59 Interval history: Consult date: 06/03/22 Requesting physician: Cheryl Fitzgerald DO Chief complaint: CHF/Leg Edema Narrative: patient was seen 06/01/2022 at 10:15; she asked me to come back tomorrow because she is tired. Patient was seen in consultation 06/02/2022 14:20, Friday. Her main complaint is left leg swelling, she denies shortness of breath now. NEW :?Amira Myers is an 86-year-old woman with COPD, chronic respiratory failure on O2, admitted with bilateral leg edema and weeping. She was started on Lasix 5 days prior to admission. She was diagnosed with COVID? in March, was admitted, went home on oxygen which was her first O2 prescription.? She tells me that since she had COVID, she has had a lingering cough with thick sputum, difficult. She declined having a NPPV on the previous admission. ? She came in with swelling especially in the left leg with sleeping open lesions, redness and tenderness.? She has had diuresis with improvement.? She had progressive shortness of breath at home. 06/03 The patient tells me she is breathing back to her normal. She has her normal amount of cough and phlegm. She has been up to the chair and has no wheezing. Saturations on 4 L nasal cannula are 91%. White blood cell count is 11.7. DATA * 05/31/2022 - CXR??Diffuse lung disease, likely pneumonia without or with pulmonary edema superimposed on emphysema.? Small pleural effusions.? Cardiomegaly. * echo March 11, 2022- ?Left ventricular chamber dimension is normal. ?Left ventricular systolic function is normal, estimated at 55-60%.? There is mildly increased left ventricular wall thickness.? Left ventricular septal wall motion is abnormal with septal motion related to bundle branch block. ? 5. Technically difficult study with limited views.? Definity contrast enhancement administered. ? 6. Right ventricular systolic function is reduced.? TAPSE 1.5.? Prominent moderator band. ? 7. Mild lipomatous hypertrophy of the interatrial septum. Suggestion of circumscribed 1.5 cm echodensity attached to or within the interatrial septum of uncertain clinical significance.? Recommend CT chest or HUBERT if clinically indicated.? Review of Systems Constitutional: Constitutional: Reports no additional constitutional complaints Eyes: Eyes: Reports no additional eye complaints ENT: Reports system reviewed and no additional complaints, except as documented [facility]
[2022-06-03 16:59] LABS: Glucose Point of Care 92 mg/dl (65-105)
[2022-06-03 23:33] LABS: Glucose Point of Care 160 mg/dl (65-105)
[2022-06-04] VITALS (27 sets, daily range): BP systolic 92–166; BP diastolic 58–88; PULSE 84–110; RESP 18–26; TEMP 36.4–36.8; O2SAT 70–99
[2022-06-04] MEDS: ALBUTEROL SULFATE NEB 2.5 MG/3 ML INH INHALATION ×3 (06:15→20:07)
[2022-06-04 06:31] LABS: Basophils Percent Auto 0.2 % (0.2-1.2); Eosinophils Absolute Auto 0.1 K/mm3 (0-0.3); Eosinophils Percent Auto 0.4 % (0-4.4); Hematocrit 40.6 % (37.0-47.0); Immature Granulocyte Absolute 0.12 K/mm3 (0.00-0.031); Immature Granulocyte Percent A 0.9 % (0-0.5); Lymphocytes Absolute Auto 2.07 K/mm3 (0.9-3.2); Lymphocytes Percent Auto 15.6 % (18.3-44.2); Mean Corpuscular HGB Conc 29.6 g/dl (32-36); Mean Corpuscular Hemoglobin 29.9 pg (26-34); Mean Platelet Volume 10.5 fl (7.4-10.4); Monocytes Absolute Auto 1.2 K/mm3 (0.1-0.6); Monocytes Percent Auto 9.1 % (2.6-8.5); Neutrophils Absolute Auto 9.8 K/mm3 (1.3-6.7); Neutrophils Percent Auto 73.8 % (45.5-73.1); Platelet Count Result 315 k/mm3 (150-375); Red Blood Count 4.02 M/mm3 (4.2-5.4); Red Cell Distribution Width 15.8 % (11.5-14.5); White Blood Count 13.2 K/mm3 (4.5-10.0)
[2022-06-04 06:36] LABS: Alveolar/Arterial O2 Gradient 583.1 mmHg; Base Excess ABG 18.8 mEq/l (+/-2.0); Fractional Inspired Oxygen 100 %; HCO3 ABG 47.9 mEq/l (22.0-26.0); PO2 ABG 50.3 mmHg (80.0-100.0); pH ABG 7.397 (7.350-7.450)
--- NOTE | 2022-06-04 06:38 | PC.NURSE ---
This patient, Amira Myers, was received from [facility] on 06/04/22 at 0638. Patient/family oriented to unit policies and routines.
[2022-06-04 06:39] LABS: PCO2 ABG 79.6 mmHg (35.0-45.0)
[2022-06-04 06:40] LABS: Device NON-REBREATHER MASK; Modified Allen's Test Pass; Oxygen Saturation ABG 83.3 % (95.0-100.0); Oxyhemoglobin 81.9 % THb (90.0-100.0); Site Drawn RIGHT RADIAL
[2022-06-04 06:42] LABS: Lactic Acid Reflex 2.6 mmol/L (0.7-2.0)
--- NOTE | 2022-06-04 06:42 | PC.NURSE ---
Pt showed little improvement with neb treatment. Dr. Cannon called and received orders for transfer to IMU with BIPAP to be started. Spoke with pt and she is agreeable at this time. S bar sent to IMU and report called to Arlene JEAN. Spoke with daughter to update regarding mothers condition and transfer to IMU for Bipap. She understood questions answered. Pt transferred per bed with oxygen on to IMU.
[2022-06-04] MEDS: FUROSEMIDE INJ 40 MG/4 ML VIAL IV PUSH ×3 (06:43→21:08)
[2022-06-04 06:46] LABS: Alanine Aminotransferase 27 U/L (6-35); Albumin Level 3.4 g/dL (3.5-5.1); Alkaline Phosphatase 81 U/L (38-126); Aspartate Amino Transferase 37 U/L (14-36); Bilirubin,Total 0.8 mg/dL (0.2-1.3); Blood Urea Nitrogen 25 mg/dL (7-17); Calcium 8.2 mg/dL (8.4-10.2); Carbon Dioxide > 40 mmol/L (22-30); Chloride 84 mmol/L (98-107); Estimated CRCL calculation 40 ml/min; Estimated Glomerular Filt Rate > 60; Glucose 158 mg/dL (65-110); Potassium 3.5 mmol/L (3.4-5.0); Sodium 135 mmol/L (137-145)
[2022-06-04 07:09] LABS: Magnesium 1.8 mg/dL (1.6-2.3)
[2022-06-04] MEDS: methylPREDNISolone SOD SUCC 125 MG VIAL IV PUSH (07:52)
[2022-06-04 08:13] LABS: NT Pro B Type Natriuretic Pept 2120 pg/mL (19.9-100)
[2022-06-04 08:40] LABS: Glucose Point of Care 139 mg/dl (65-105)
--- NOTE | 2022-06-04 08:53 | PCOTNOTE ---
Spoke with hospitalist and nursing regarding continuation of therapy services after transfer to IMU for increased O2 need, both in agreement to continue.
--- NOTE | 2022-06-04 08:54 | PM.PNCARD ---
Progress Note: A&P Assessment and Plan (1) Acute decompensated heart failure: Code(s): I50.9 - Heart failure, unspecified Status: Acute Assessment and Plan: Echocardiogram done 06/03/2022 shows: LVEF 50-55%, mild MR, moderate TR, severe pulmonary HTN with estimated PASP 63mmHg, left pleural effusion. Patient is still volume overloaded, but improving. Continue with intermittent IV diuresis for now. Please monitor strict I/Os, daily weights if possible. Monitor electrolytes while getting IV diuresis. (2) Atrial fibrillation: Code(s): I48.91 - Unspecified atrial fibrillation Status: Acute Assessment and Plan: Persistent atrial fibrillation and prior documentation of atrial flutter maintained on systemic anticoagulation with Eliquis 5 mg twice daily.? -Heart rate reasonably controlled on metoprolol 25 mg twice daily.? Continue for now.? Rate control strategy, conservative management.? -Follow H&H, monitor for bleeding.? -Repeat 12 lead ECG. -Continue telemetry monitoring (3) COPD exacerbation: Code(s): J44.1 - Chronic obstructive pulmonary disease with (acute) exacerbation Status: Acute Assessment and Plan: As per Pulmonary (4) Chronic respiratory failure with hypoxia and hypercapnia: Code(s): J96.11 - Chronic respiratory failure with hypoxia; J96.12 - Chronic respiratory failure with hypercapnia Status: Acute Assessment and Plan: Appreciate pulmonology involvement and recommendations. Comfort measures appear appropriate given patient's advanced age, comorbidities and end-stage COPD.? (5) Pulmonary hypertension: Code(s): I27.20 - Pulmonary hypertension, unspecified Status: Acute Assessment and Plan: Likely secondary to underlying lung disease and chronic hypoxic respiratory failure. 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 She was found to have hypoxia despite O2 and states he has been compliant with medications.? She was also given oral Lasix prior to admission which he states did not improve her edema which had progressed over the past several days prompting admission.? She was given IV Lasix admits to significant improvement lower extremity swelling and discomfort.? She states her breathing is a little bit better but still is short of breath.? She states she feels very weak and also admits she knows she does not have much time left.? She did recognize me very promptly from her last hospitalization and states her primary complaint is feeling tired and short of breath.? She denies fevers, chills, chest pain or palpitations.? On telemetry she was in persistent atrial fibrillation with fairly controlled ventricular response maintained on metoprolol 25 mg twice daily in addition to Eliquis 5 mg twice daily.? Patient denies syncope, recent falls or head injury or known bleeding.? Potassium is very low this morning 2.7 for which she has received supplementation.? ProBNP was 2200 and not too dissimilar than her last hospitalization. Date of service: Patient on BIPAP this morning. Reports her shortness of breath is better. Still with bilateral lower extremity edema - family at bedside states that it is looking better since admission. Review of Systems Review of Systems: 8 point ROS obtained. Negative, unless s
[2022-06-04 09:25] LABS: Reflex Lactic Acid Yes or No Add Lactic
[2022-06-04 10:00] LABS: Lactic Acid 2.2 mmol/L (0.7-2.0)
[2022-06-04] MEDS: APIXABAN 5 MG TABLET PO ×2 (10:47→21:08)
[2022-06-04] MEDS: lisinopriL 5 MG TABLET PO (10:48)
[2022-06-04] MEDS: METOPROLOL TARTRATE 25 MG TABLET PO ×2 (10:48→21:08)
[2022-06-04] MEDS: metOLazone 5 MG TABLET PO (10:50)
[2022-06-04] MEDS: FAMOTIDINE 20 MG TABLET PO ×2 (10:50→21:08)
--- NOTE | 2022-06-04 11:03 | PCPTNOTE ---
The patient treatment was not able to be completed today. RN reports patient is not able to participate in PT today due to medical status. Will plan to continue treatment per plan of care.
--- NOTE | 2022-06-04 11:15 | PM.IMPN ---
Progress Note: A&P Assessment and Plan (1) CHF (congestive heart failure): Qualifiers: Heart failure chronicity: acute on chronic Heart failure type: unspecified Qualified Code(s): I50.9 - Heart failure, unspecified Code(s): I50.9 - Heart failure, unspecified Status: Acute Assessment and Plan: Appears somewhat hypervolemic, will continue IV diuresis Cardiology consult appreciated Echo ordered and pending, last echo from March 2022 showed some abnormalities that may have progressed and are contributing to her current decompensation Due to worsening chest x-ray concerning for severe vascular congestion, Cardiology recommended metolazone today (2) Chronic respiratory failure with hypoxia and hypercapnia: Code(s): J96.11 - Chronic respiratory failure with hypoxia; J96.12 - Chronic respiratory failure with hypercapnia Status: Acute Assessment and Plan: End-stage COPD on chronic oxygen therapy, does not appear to be in an exacerbation, continue home meds 06/03: appreciate pulmonology consultation, recommendations are for Trelegy, albuterol as needed, home O2 eval and ApneaLink on home oxygen 06/04: due to worsening clinical picture, broad-spectrum antibiotics will be initiated today with vancomycin, aztreonam and azithromycin to cover for possible healthcare acquired pneumonia, Trelegy discontinued in favor of nebulizers (3) Physical debility: Code(s): R53.81 - Other malaise Status: Acute Assessment and Plan: PT/OT (4) FIFI (generalized anxiety disorder): Code(s): F41.1 - Generalized anxiety disorder Status: Acute Assessment and Plan: Stable, continue home meds (5) Benign essential HTN: Code(s): I10 - Essential (primary) hypertension Status: Acute Assessment and Plan: Stable (6) Diabetes mellitus: Code(s): E11.9 - Type 2 diabetes mellitus without complications Status: Acute Assessment and Plan: Accu-Cheks with sliding scale insulin, a1c 6.7 (7) Pulmonary hypertension: Code(s): I27.20 - Pulmonary hypertension, unspecified Status: Acute Assessment and Plan: Moderate per echo from 03/28, recheck echo pending Contributing to hypoxia Plan Patient was made DNR today. Family aware of patient's poor prognosis. They are anticipating she was doing inpatient hospice versus home with hospice based on her response to diuresis and antibiotic treatment started today. DVT prophylaxis with Eliquis GI prophylaxis with Pepcid Code status DNR Subjective Date/time seen: 06/04/22 11:15 Interval history: Patient deteriorated overnight significantly, sudden onset worsening shortness of breath, was moved back to the IMU for BiPAP support. She states she feels about the same as yesterday, however. She denies any fevers or chills, no nausea vomiting or diarrhea. Family is in the room and I requesting the patient be made DNR and they would like to meet with the hospice team for discharge planning. Review of Systems Review of Systems: 12 point review of systems was assessed and was negative except as noted in the HPI Exam Narrative: General: No acute distress, alert and oriented per baseline HEENT: Atraumatic, normocephalic, mucous membranes moist CV: Regular rate and rhythm, S1, S2 Lungs: Poor air entry throughout, coarse breath sounds, no wheeze Abdomen: Soft, nontender, nondistended Extremities: 1+ pitting edema up to mid tibia on bilateral lower extremities, some venous stasis dermatitis noted, blotchy erythematous areas on left anterior and posterior lower extremity noted, diminished from yesterday Skin: Excoriated skin healing, bandages clean dry and intact with no drainage Psych: Euthymic, normal affect Objective Data Vital Signs Vital Signs: Vital Signs - 24 hr 06/03/22 14:00 06/03/22 12:00 06/03/22 16:00 Temperature 98.0 F Pulse Rate 8
[2022-06-04 12:13] LABS: Glucose Point of Care 160 mg/dl (65-105)
--- NOTE | 2022-06-04 12:25 | PM.PNPUL ---
Progress Note: A&P Assessment and Plan (1) COPD exacerbation: Code(s): J44.1 - Chronic obstructive pulmonary disease with (acute) exacerbation Status: Acute Assessment and Plan: She was admitted with worsening COPD, less likely pneumonia. She had mild elevation in her white count, 11.6, currently 12.5 without a left shift.? She did not want to have a noninvasive ventilator when this was offered in March.? She has pulmonary hypertension, last echo March 11 showed RVSP of 45 mmHg.? She has required oxygen since her COVID admission in March.? 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 She has her normal amount of cough and phlegm. She has been up to the chair and has no wheezing. Saturations on 4 L nasal cannula are 91%. White blood cell count is 11.7. continue trilogy 100-62.5-25, continue guaifenesin 1200 mg p.o. q.12 hours, I will discontinue dornase. I will order overnight oximetry on 4 L nasal cannula 06/04 I spoke with the daughter who was at the bedside until 8:00 p.m. and the patient was doing well at 8:00 p.m.. The patient tells me she was doing well until approximately 4:00 a.m. when they were moving her around in bed to do her care and she developed shortness of breath. this is validated by her overnight oximetry on 4 L nasal cannula which ended at approximately 4:20 a.m.. Patient's average saturation was 92%, low saturation was 79%, time with saturation less than or equal to 88% was 17 minutes. Her tracing was stable up until 4:20. She denied any chest pain, aspiration, fever, chills, rigors or change in phlegm color or production. The patient developed hypoxemia requiring 10 L nasal cannula than 15 L non-rebreather and then BiPAP rate of 18, pressures 18/6 and 100% FiO2 and was transferred to the IMU. She was given Lasix, albuterol nebulizer and Solu-Medrol 125. This morning when I saw her she said that she was breathing comfortably and needed to take the mask off. She was thirsty. I placed her on 100% non-rebreather mask and her sats were 95%. BNP was 2120, white blood cell count 13.2, creatinine 0.8, Chest x-ray demonstrated worsening infiltrates left lung bilateral pleural effusions left greater than right. metolazone was added for increased diuresis. Vancomycin, aztreonam and azithromycin started for possible hospital-acquired pneumonia. Patient was made DNR and the family continued hospice discussions which were started on 06/03. This rather sudden deterioration is consistent with acute pulmonary edema and or hospital-acquired pneumonia. There is no wheezing and I do not believe this is a COPD exacerbation and I do not believe she needs systemic steroids at this time. She is acutely ill and I will discontinue her trilogy and change her to nebulized albuterol, ipratropium and budesonide. Discussed with Dr. Fitzgerald, will follow with you. Subjective Date/time seen: 06/04/22 12:25 Interval history: Consult date: 06/03/22 Requesting physician: Cheryl Fitzgerald DO Chief complaint: CHF/Leg Edema Narrative: patient was seen 06/01/2022 at 10:15; she asked me to come back tomorrow because she is tired. Patient was seen in consultation 06/02/2022 14:20, Friday. Her main complaint is left leg swelling, she denies shortness of breath now. NEW :?Amira Myers is an 86-year-old woman with COPD, chronic respiratory failure on O2, admitted with bilateral leg edema and weeping. She was started on Lasix 5 days prior to admission. She was diagnosed with COVID? in March, was admitted, went home on oxygen which was her first O2 prescription.? She tells me that since she had COVID, she has had a lingering cough with thick sputum, difficult. She declined having a NPPV on the previous admission. ? She came in with swelling especially in the left leg with sleeping open lesions, redness and tenderness.? She h
[2022-06-04] MEDS: ATORVASTATIN 10 MG TABLET PO (12:26)
[2022-06-04] MEDS: GLIMEPIRIDE 2 MG TABLET PO (12:26)
[2022-06-04] MEDS: AZTREONAM 2 GM in SODIUM CHLORIDE 0.9% IV 100 ML 200 ML IVPB ×2 (12:29→21:09)
--- NOTE | 2022-06-04 12:50 | PCOTNOTE ---
Per RN, do not see Patient this date due to condition at this time.
[2022-06-04] MEDS: IPRATROPIUM BR 0.02% INH SOLN 0.5 MG/2.5 ML VIAL INHALATION ×2 (13:24→20:07)
[2022-06-04 15:29] LABS: Blood Urea Nitrogen 29 mg/dL (7-17); Calcium 7.7 mg/dL (8.4-10.2); Carbon Dioxide > 40 mmol/L (22-30); Chloride 83 mmol/L (98-107); Estimated CRCL calculation 46 ml/min; Estimated Glomerular Filt Rate > 60; Glucose 271 mg/dL (65-110); Potassium 3.6 mmol/L (3.4-5.0); Sodium 136 mmol/L (137-145)
[2022-06-04 16:28] LABS: Glucose Point of Care 354 mg/dl (65-105)
[2022-06-04] MEDS: metFORMIN HCL 500 MG TABLET PO (16:36)
[2022-06-04] MEDS: BUDESONIDE RESPULE NEB 0.5 MG/2 ML AMP INHALATION (20:07)
[2022-06-04 20:25] LABS: Glucose Point of Care 343 mg/dl (65-105)
[2022-06-04] MEDS: guaiFENesin 12 HR 600 MG TABCR 1200 MG PO (21:08)
[2022-06-05] VITALS (19 sets, daily range): BP systolic 95–127; BP diastolic 50–62; PULSE 74–106; RESP 16–20; TEMP 36.1–36.4; O2SAT 20–99
[2022-06-05] MEDS: ALBUTEROL SULFATE NEB 2.5 MG/3 ML INH INHALATION ×3 (02:17→13:54)
[2022-06-05] MEDS: IPRATROPIUM BR 0.02% INH SOLN 0.5 MG/2.5 ML VIAL INHALATION ×3 (02:17→13:54)
[2022-06-05 05:05] LABS: Basophils Percent Auto 0.1 % (0.2-1.2); Eosinophils Percent Auto 0.1 % (0-4.4); Hematocrit 37.7 % (37.0-47.0); Hemoglobin 11.2 g/dL (12.0-15.0); Immature Granulocyte Absolute 0.11 K/mm3 (0.00-0.031); Immature Granulocyte Percent A 0.7 % (0-0.5); Lymphocytes Absolute Auto 1.18 K/mm3 (0.9-3.2); Lymphocytes Percent Auto 7.7 % (18.3-44.2); Mean Corpuscular HGB Conc 29.7 g/dl (32-36); Mean Corpuscular Hemoglobin 30.2 pg (26-34); Mean Corpuscular Volume 101.6 fl (80-100); Mean Platelet Volume 10.8 fl (7.4-10.4); Monocytes Absolute Auto 1.4 K/mm3 (0.1-0.6); Monocytes Percent Auto 8.8 % (2.6-8.5); Neutrophils Absolute Auto 12.7 K/mm3 (1.3-6.7); Neutrophils Percent Auto 82.6 % (45.5-73.1); Platelet Count Result 286 k/mm3 (150-375); Red Blood Count 3.71 M/mm3 (4.2-5.4); Red Cell Distribution Width 15.7 % (11.5-14.5); White Blood Count 15.4 K/mm3 (4.5-10.0)
[2022-06-05] MEDS: AZTREONAM 2 GM in SODIUM CHLORIDE 0.9% IV 100 ML 200 ML IVPB ×2 (05:14→14:35)
[2022-06-05 05:18] LABS: Alanine Aminotransferase 24 U/L (6-35); Albumin Level 3.1 g/dL (3.5-5.1); Alkaline Phosphatase 69 U/L (38-126); Aspartate Amino Transferase 32 U/L (14-36); Bilirubin,Total 0.6 mg/dL (0.2-1.3); Blood Urea Nitrogen 30 mg/dL (7-17); Calcium 8.3 mg/dL (8.4-10.2); Carbon Dioxide > 40 mmol/L (22-30); Chloride 79 mmol/L (98-107); Estimated CRCL calculation 36 ml/min; Estimated Glomerular Filt Rate 60; Glucose 115 mg/dL (65-110); Potassium 3.1 mmol/L (3.4-5.0); Sodium 134 mmol/L (137-145)
[2022-06-05 05:41] LABS: Hypochromasia 2+ (NORMAL); Large Platelets Present; Platelet Estimate Adequate (Adequate)
[2022-06-05 05:42] LABS: Anisocytosis 1+ (NORMAL); Basophilic Stippling 1+ (NORMAL); Macrocytosis 1+ (NORMAL); Microcytosis 1+ (NORMAL); Schistocytes None Seen (NORMAL); Stomatocytes 1+ (NORMAL)
[2022-06-05 08:20] LABS: Glucose Point of Care 95 mg/dl (65-105)
[2022-06-05] MEDS: BUDESONIDE RESPULE NEB 0.5 MG/2 ML AMP INHALATION (08:29)
--- NOTE | 2022-06-05 09:04 | PM.PNPUL ---
Progress Note: A&P Assessment and Plan (1) COPD exacerbation: Code(s): J44.1 - Chronic obstructive pulmonary disease with (acute) exacerbation Status: Acute Assessment and Plan: She was admitted with worsening COPD, less likely pneumonia. She had mild elevation in her white count, 11.6, currently 12.5 without a left shift.? She did not want to have a noninvasive ventilator when this was offered in March.? She has pulmonary hypertension, last echo March 11 showed RVSP of 45 mmHg.? She has required oxygen since her COVID admission in March.? 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 She has her normal amount of cough and phlegm. She has been up to the chair and has no wheezing. Saturations on 4 L nasal cannula are 91%. White blood cell count is 11.7. continue trilogy 100-62.5-25, continue guaifenesin 1200 mg p.o. q.12 hours, I will discontinue dornase. I will order overnight oximetry on 4 L nasal cannula 06/04 I spoke with the daughter who was at the bedside until 8:00 p.m. and the patient was doing well at 8:00 p.m.. The patient tells me she was doing well until approximately 4:00 a.m. when they were moving her around in bed to do her care and she developed shortness of breath. this is validated by her overnight oximetry on 4 L nasal cannula which ended at approximately 4:20 a.m.. Patient's average saturation was 92%, low saturation was 79%, time with saturation less than or equal to 88% was 17 minutes. Her tracing was stable up until 4:20. She denied any chest pain, aspiration, fever, chills, rigors or change in phlegm color or production. The patient developed hypoxemia requiring 10 L nasal cannula than 15 L non-rebreather and then BiPAP rate of 18, pressures 18/6 and 100% FiO2 and was transferred to the IMU. She was given Lasix, albuterol nebulizer and Solu-Medrol 125. This morning when I saw her she said that she was breathing comfortably and needed to take the mask off. She was thirsty. I placed her on 100% non-rebreather mask and her sats were 95%. BNP was 2120, white blood cell count 13.2, creatinine 0.8, Chest x-ray demonstrated worsening infiltrates left lung bilateral pleural effusions left greater than right. metolazone was added for increased diuresis. Vancomycin, aztreonam and azithromycin started for possible hospital-acquired pneumonia. Patient was made DNR and the family continued hospice discussions which were started on 06/03. This rather sudden deterioration is consistent with acute pulmonary edema and or hospital-acquired pneumonia. There is no wheezing and I do not believe this is a COPD exacerbation and I do not believe she needs systemic steroids at this time. She is acutely ill and I will discontinue her trilogy and change her to nebulized albuterol, ipratropium and budesonide. 06/05 Patient did not wear BiPAP last night and wore high-flow nasal cannula. Currently she is on 15 L saturations 90%. Patient is awake and eating breakfast and states that she is breathing better than yesterday and close to normal. White blood cell count is 15.4, creatinine is 0.9. Chest x-ray demonstrates diffuse interstitial edema and improvement in the left upper lobe. Small right and moderate left side pleural effusion. The daughter has told me that the family has decided for hospice with a goal of discharging her home. Given her clinical improvement since yesterday morning with diuresis and antibiotics and her improvement in the left upper lobe infiltrate on the chest x-ray I suspect her decompensation was due to fluid overload with pulmonary edema rather than hospital-acquired pneumonia. Agree with aggressive diuresis as tolerated by her cardiac and renal systems. Plan: While she is in house will continue vancomycin, aztreonam and azithromycin, day 2. continue nasal cannula oxygen for goal saturat
[2022-06-05] MEDS: guaiFENesin 12 HR 600 MG TABCR 1200 MG PO (09:15)
[2022-06-05] MEDS: FAMOTIDINE 20 MG TABLET PO (09:15)
[2022-06-05] MEDS: THERAPEUTIC MULTIVITAMINS/MINERALS TAB (*BKC) 1 TABLET PO (09:15)
[2022-06-05] MEDS: ATORVASTATIN 10 MG TABLET PO (09:15)
[2022-06-05] MEDS: METOPROLOL TARTRATE 25 MG TABLET PO (09:15)
[2022-06-05] MEDS: metFORMIN HCL 500 MG TABLET PO (09:16)
[2022-06-05] MEDS: lisinopriL 5 MG TABLET PO (09:16)
[2022-06-05] MEDS: FUROSEMIDE INJ 40 MG/4 ML VIAL IV PUSH (09:16)
[2022-06-05] MEDS: POLYSACCHARIDE IRON COMPLEX 150 MG CAPSULE PO (09:16)
[2022-06-05] MEDS: GLIMEPIRIDE 2 MG TABLET PO (09:16)
[2022-06-05] MEDS: APIXABAN 5 MG TABLET PO (09:17)
[2022-06-05] MEDS: POTASSIUM CHLORIDE 20 MEQ TABLET 40 MEQ PO (09:18)
[2022-06-05 12:11] LABS: Glucose Point of Care 169 mg/dl (65-105)
--- NOTE | 2022-06-05 14:05 | PM.DS ---
DS: Admitting Diagnosis Discharge Date 06/05/22 Admitting Diagnosis Edema DS: Discharge Diagnosis Discharge Diagnosis (1) CHF (congestive heart failure): Qualifiers: Heart failure chronicity: acute on chronic Heart failure type: unspecified Qualified Code(s): I50.9 - Heart failure, unspecified Code(s): I50.9 - Heart failure, unspecified Status: Acute (2) Chronic respiratory failure with hypoxia and hypercapnia: Code(s): J96.11 - Chronic respiratory failure with hypoxia; J96.12 - Chronic respiratory failure with hypercapnia Status: Acute (3) Physical debility: Code(s): R53.81 - Other malaise Status: Acute (4) FIFI (generalized anxiety disorder): Code(s): F41.1 - Generalized anxiety disorder Status: Acute (5) Benign essential HTN: Code(s): I10 - Essential (primary) hypertension Status: Acute (6) Diabetes mellitus: Code(s): E11.9 - Type 2 diabetes mellitus without complications Status: Acute (7) Pulmonary hypertension: Code(s): I27.20 - Pulmonary hypertension, unspecified Status: Acute DS: Summary Hospital Course Reason for hospitalization: 86yo female with HTN, DM and COPD here for edema and found to have worsening hypoxia. Please see H&P for details Hospital Course: Patient was admitted with worsening COPD, less likely pneumonia. She had mild elevation in her white count.? She did not want to have a noninvasive ventilator when this was offered in March.? She has pulmonary hypertension and has required oxygen since her COVID admission in March.? 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 Vancomycin, aztreonam and azithromycin? started for possible hospital-acquired pneumonia.? Patient was made DNR and the family continued hospice discussions which were started on 06/03. Patient is awake and eating breakfast and states that she is breathing better than yesterday and close to normal. Chest x-ray demonstrates diffuse interstitial edema and improvement in the left upper lobe.?The family has decided for hospice with a goal of discharging her home. Arrangements made and patient was able to be discharged home with hospice care on 06/05/22. Status at Discharge Cognitive/behavioral status at discharge: Critical Time Spent with Patient Time attestation: Total time spent providing and/or coordinating discharge services: 38 minutes Time spent: Greater than 30 minutes Exam Narrative: AF 95/62 91 Gen - NARD sitting up in bed Chest - distant BS CV - RRR S1/S2 Abd - Soft, NT/ND, Positive BS Ext - wrinkling of the LE skin. 1+ pedal edema Psych - Nml mood and affect Skin - Warm and dry DS: Data Data Completed and Pending Labs on day of discharge: Labs from last 24 hours 06/05/22 06/05/22 06/05/22 11:42 07:43 04:27 WBC RBC Hgb Hct MCV MCH MCHC RDW Plt Count MPV Immature Gran % (Auto) Neut % (Auto) Lymph % (Auto) [place] % (Auto) Eos % (Auto) Baso % (Auto) Lymph # (Auto) [place] # (Auto) Eos # (Auto) Baso # (Auto) Abs Immat Gran (auto) Absolute Neuts (auto) Absolute Nucleated RBC Nucleated RBC % Platelet Estimate Large Platelets Hypochromasia Basophilic Stippling Anisocytosis Microcytosis Macrocytosis Stomatocytes Schistocytes Sodium 134 L Potassium 3.1 L Chloride 79 L Carbon Dioxide > 40 H Anion Gap BUN 30 H Creatinine 0.90 Estim Creat Clear Calc 36 Estimated GFR 60 Glucose 115 H POC Capillary Glucose 169 H 95 Calcium 8.3 L Total Bilirubin 0.6 AST 32 ALT 24 Alkaline Phosphatase 69 Total Protein 6.0 L Albumin 3.1 L 06/05/22 06/04/22 06/04/22 04:27 20:22 16:03
== END 2022-06-05 17:05 | disposition hospice, home (50) | DRG 190 ==
LOC: ANHED 22:22 → ANH3MED 06-02 10:04 → ANHIMU 06-04 12:00 → ANH3MED 06-10 06:49 → ANHIMU 06-10 06:49
PROVIDERS: Emergency Medicine; Internal Medicine; Internal Medicine Pulmonary Disease; Student in an Organized Health Care Education/Training Program; Admitting Provider Internal Medicine; Emergency Provider Family Medicine; PCP Family Medicine; Visit Provider Internal Medicine
DX: J44.0 Chronic obstructive pulmonary disease with (acute) lower respiratory infection (principal); I50.31 Acute diastolic (congestive) heart failure; J18.9 Pneumonia, unspecified organism; J96.11 Chronic respiratory failure with hypoxia; J96.12 Chronic respiratory failure with hypercapnia; I48.19 Other persistent atrial fibrillation; J90 Pleural effusion, not elsewhere classified; J98.4 Other disorders of lung; R53.81 Other malaise; U09.9 Post COVID-19 condition, unspecified; I11.0 Hypertensive heart disease with heart failure; R91.1 Solitary pulmonary nodule; F41.1 Generalized anxiety disorder; Z20.822 Contact with and (suspected) exposure to COVID-19; E11.9 Type 2 diabetes mellitus without complications; I27.20 Pulmonary hypertension, unspecified; E78.5 Hyperlipidemia, unspecified; E87.6 Hypokalemia; T50.2X5A Adverse effect of carbonic-anhydrase inhibitors, benzothiadiazides and other diuretics, initial encounter; Z66 Do not resuscitate; Z99.81 Dependence on supplemental oxygen; Z85.3 Personal history of malignant neoplasm of breast; Z90.49 Acquired absence of other specified parts of digestive tract; Z87.891 Personal history of nicotine dependence
CPT/HCPCS: 36415; 36600; 71045; 80048; 80053; 82805; 82948; 83605; 83735; 83880; 84132; 84484; 85025; 85610; 87081; 87636; 93005; 93306; 93970; 94002; 94640; 94667; 94762; 96374; 97161; 97166; 99285; A9270; J0456; J1940; J2930; J3370